=== PATIENT | female | born 2000 | race Hispanic/Latino ===

== ENCOUNTER 2019-04-17 18:59 | Emergency (ER) | payer OTHER, SELFPAY ==
[2019-04-17] MEDS ORDERED: TOBRAMYCIN SULF 0.3% OPTH OINT ONE (19:39)
--- NOTE | 2019-04-17 19:41 | ER ---
Nurse's Notes [facility] Name: Guillermina Carlson Age: 19 yrs Sex: Female : 2000 Arrival Date: 04/17/2019 Time: 19:01 Bed 7 Private MD: Unknown, Unknown Diagnosis: Conjunctivitis Presentation: 04/17 19:04 Presenting complaint: Patient states: "I popped an eye blood vessel like a week ago, aj1 yesterday my eye started hurting really bad and its all red right now" Patient reports pain to left eye. Patient has bruising under both eyes, states that she got hit by a swinging door. Sclera reddened to left eye. Patient denies any blurred vision or loss of vision in left eye. Transition of care: patient was not received from another setting of care. Onset of symptoms was 2018. Risk Assessment: Do you want to hurt yourself or someone else? Patient reports no desire to harm self or others. Initial Sepsis Screen: Does the patient meet any 2 criteria? No. Patient's initial sepsis screen is negative. Does the patient have a suspected source of infection? No. Patient's initial sepsis screen is negative. Care prior to arrival: None. 19:04 Method Of Arrival: Ambulatory aj1 19:04 Acuity: SHIRLEY 3 aj1 Triage Assessment: 19:06 General: Appears in no apparent distress. comfortable, Behavior is calm, cooperative, aj1 appropriate for age. Pain: Denies pain. EENT: Reports pain when she looks at the light with her left eye. Neuro: Level of Consciousness is awake, alert, obeys commands. Cardiovascular: Patient's skin is warm and dry. Respiratory: Airway is patent Respiratory effort is even, unlabored, Respiratory pattern is regular, symmetrical. 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 - Social history:: Smoking status: Patient/guardian denies using tobacco. - Ebola Screening: : Patient denies travel to an Ebola-affected area in the 21 days before illness onset. Screenin:17 Abuse screen: Denies threats or abuse. Nutritional screening: No deficits noted. ea Tuberculosis screening: No symptoms or risk factors identified. Fall Risk None identified. Assessment: 19:16 General: Appears in no apparent distress. Behavior is calm, cooperative, appropriate ea for age. Pain: Complains of pain in left eye. Neuro: Level of Consciousness is awake, alert, obeys commands, Oriented to person, place, time, situation. Cardiovascular: Patient's skin is warm and dry. Respiratory: Airway is patent Respiratory effort is even, unlabored, Respiratory pattern is regular, symmetrical. EENT: Sclera/Cornea are reddened in outer aspect of conjuctiva of left eye and inner aspect of conjunctiva of left eye. Derm: Bruising that is brown, on right lower eyelid and left lower eyelid. Musculoskeletal: Circulation, motion, and sensation intact. 19:47 Reassessment: Patient and/or family updated on plan of care and expected duration. Pain ea level reassessed. Patient is alert, oriented x 3, equal unlabored respirations, skin warm/dry/pink. Discharge instruction given to patient, verbalized the understanding of instruction. Pt left ED ambulatory, tolerating well. Vital Signs: 19:06 BP 123 / 71; Pulse 98; Resp 18; Temp 98.6; Pulse Ox 99% on R/A; Weight 63.5 kg (R); aj1 Height 5 ft. 2 in. (157.48 cm) (R); Pain 0/10; 19:06 Body Mass Index 25.61 (63.50 kg, 157.48 cm) aj1 ED Course: 19:01 Patient arrived in ED. as 19:01 Unknown, Unknown is Private Physician. as 19:06 Triage completed. aj1 19:06 Arm band placed on Patient placed in an exam room. aj1 19:08 Marcio Chance MD is Attending Physician. daniel 19:09 Leanna Bassett RN is Primary Nurse. ea 19:18 Patient has correct armband on for positive identification. Bed in low position. Call ea light in reach. Side rails up X2. 19:40 Jordy Fuller MD is Referral Physician. [facility] 19:46 No provider procedures requiring assistance completed. Patient did not have IV access ea during this emergency room visit. Administered Medications: 19:40 Drug: Tobramycin Ointment (0.3 %) 1 inches Route: Ophthalmic; Site: left eye; jose antonio 19:46 Follow up: Response: Medication administered at discharge. jose antonio Outcome: 19:40 Discharge ordered by . daniel 19:46 Discharged to home ambulatory. jose antonio 19:46 Condition: stable 19:46 Discharge instructions given to patient, Instructed on discharge instructions, follow up and referral plans. medication usage, Demonstrated understanding of instructions, follow-up care, medications, Prescriptions given X 2. 19:47 Patient left the ED. ea Signatures: Teresa Aldrich, RN RN aj1 Marcio Chance MD MD cha Martinez, Amelia as Antunez, Elena, RN RN jose antonio
--- NOTE | 2019-04-17 19:41 | EDPHYS ---
Physician Documentation [facility] Name: Guillermina Carlson Age: 19 yrs Sex: Female : 2000 Arrival Date: 04/17/2019 Time: 19:01 Bed 7 Private MD: Unknown, Unknown ED Physician Marcio Chance HPI: 04/17 19:37 This 19 yrs old Female presents to ER via Ambulatory with complaints of Eye daniel Problem. 19:37 The patient is experiencing redness, The patient sustained. Onset: The symptoms/episode daniel began/occurred 2 day(s) ago. Duration: the symptoms are continuous. Aggravated by blinking, closing eye, light, Alleviated by nothing. Associated signs and symptoms: Pertinent positives: None. Pertinent negatives: None. Patient does not utilize any form of vision correction. Severity of symptoms: At their worst the symptoms were mild. The patient has not experienced similar symptoms in the past. 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 - Social history:: Smoking status: Patient/guardian denies using tobacco. - Ebola Screening: : Patient denies travel to an Ebola-affected area in the 21 days before illness onset. ROS: 19:38 Constitutional: Negative for fever, chills, and weight loss, ENT: Negative for injury, daniel pain, and discharge, Neck: Negative for injury, pain, and swelling, Cardiovascular: Negative for chest pain, palpitations, and edema, Respiratory: Negative for shortness of breath, cough, wheezing, and pleuritic chest pain, Abdomen/GI: Negative for abdominal pain, nausea, vomiting, diarrhea, and constipation, Back: Negative for injury and pain, : Negative for injury, bleeding, discharge, and swelling, MS/Extremity: Negative for injury and deformity, Skin: Negative for injury, rash, and discoloration, Neuro: Negative for headache, weakness, numbness, tingling, and seizure. 19:38 Eyes: Positive for itching, pain, of the outer aspect of conjuctiva of left eye and inner aspect of conjunctiva of left eye. Exam: 19:38 Constitutional: This is a well developed, well nourished patient who is awake, alert, daniel and in no acute distress. Head/Face: Normocephalic, atraumatic. ENT: Nares patent. No nasal discharge, no septal abnormalities noted. Tympanic membranes are normal and external auditory canals are clear. Oropharynx with no redness, swelling, or masses, exudates, or evidence of obstruction, uvula midline. Mucous membranes moist. Neck: Trachea midline, no thyromegaly or masses palpated, and no cervical lymphadenopathy. Supple, full range of motion without nuchal rigidity, or vertebral point tenderness. No Meningismus. Chest/axilla: Normal chest wall appearance and motion. Nontender with no deformity. No lesions are appreciated. Cardiovascular: Regular rate and rhythm with a normal S1 and S2. No gallops, murmurs, or rubs. Normal PMI, no JVD. No pulse deficits. Respiratory: Lungs have equal breath sounds bilaterally, clear to auscultation and percussion. No rales, rhonchi or wheezes noted. No increased work of breathing, no retractions or nasal flaring. Abdomen/GI: Soft, non-tender, with normal bowel sounds. No distension or tympany. No guarding or rebound. No evidence of tenderness throughout. Back: No spinal tenderness. No costovertebral tenderness. Full range of motion. Skin: Warm, dry with normal turgor. Normal color with no rashes, no lesions, and no evidence of cellulitis. MS/ Extremity: Pulses equal, no cyanosis. Neurovascular intact. Full, normal range of motion. Neuro: Awake and alert, GCS 15, oriented to person, place, time, and situation. Cranial nerves II-XII grossly intact. Motor strength 5/5 in all extremities. Sensory grossly intact. Cerebellar exam normal. Normal gait. Psych: Awake, alert, with orientation to person, place and time. Behavior, mood, and affect are within normal limits. 19:38 Eyes: Periorbital structures: ecchymosis, that is mild, bilaterally, Pupils: no acute changes, equal, round, and reactive to light and accomodation, Extraocular movements: intact throughout, Conjunctiva: injected, Corneas: are normal, no acute changes, Sclera: no appreciated abnormality, Anterior chamber: normal, no acute changes, Lids and lashes: appear normal, no acute changes, Nystagmus: is not appreciated. Vital Signs: 19:06 BP 123 / 71; Pulse 98; Resp 18; Temp 98.6; Pulse Ox 99% on R/A; Weight 63.5 kg (R); aj1 Height 5 ft. 2 in. (157.48 cm) (R); Pain 0/10; 19:06 Body Mass Index 25.61 (63.50 kg, 157.48 cm) aj1 MDM: 19:08 Patient medically screened. [place] 19:40 Data reviewed: vital signs, nurses notes. [place] Administered Medications: 19:40 Drug: Tobramycin Ointment (0.3 %) 1 inches Route: Ophthalmic; Site: left eye; ea 19:46 Follow up: Response: Medication administered at discharge. ea Disposition: 04/17/19 19:40 Discharged to Home. Impression: Conjunctivitis. - Condition is Stable. - Discharge Instructions: Allergic Conjunctivitis, Adult, Bacterial Conjunctivitis, Bacterial Conjunctivitis, [id number], Allergic Conjunctivitis, [id number]. - Prescriptions for Tobrex 0.3 % Ophthalmic ointment - apply 1 inch ribbon by OPHTHALMIC route 2-3 times daily; 3.5 gram. Claritin 10 mg Oral Tablet - take 1 tablet by ORAL route once daily As needed; 30 tablet. - Medication Reconciliation Form, Thank You Letter, Antibiotic Education, Prescription Opioid Use, Work release form form. - Follow up: Private Physician; When: 2 - 3 days; Reason: Recheck today's complaints, Continuance of care, Re-evaluation by your physician. Follow up: Jordy Fuller MD; When: 2 - 3 days; Reason: Recheck today's complaints, Re-evaluation by your physician. - Problem is new. - Symptoms have improved. Signatures: Teresa Aldrich RN RN aj1 Marcio Chance MD MD cha Antunez, Elena, RN RN ea Corrections: (The following items were deleted from the chart) 19:47 19:40 04/17/2019 19:40 Discharged to Home. Impression: Conjunctivitis. Condition is ea Stable. Forms are Work release form, Medication Reconciliation Form, Thank You Letter, Antibiotic Education, Prescription Opioid Use. Follow up: Private Physician; When: 2 - 3 days; Reason: Recheck today's complaints, Continuance of care, Re-evaluation by your physician. Follow up: Jordy Fuller; When: 2 - 3 days; Reason: Recheck today's complaints, Re-evaluation by your physician. Problem is new. Symptoms have improved. daniel
[2019-04-17 20:01] VITALS: BP 123/71; TEMP 98.6; O2SAT 99
== END 2019-04-17 19:47 | disposition home or self-care (01) ==
LOC: ER 18:59
DX: H10.9 Unspecified conjunctivitis (principal)
CPT/HCPCS: 99283

== ENCOUNTER 2020-07-21 12:18 | Emergency (ER) | payer SELFPAY ==
--- OUTSIDE RECORDS SUMMARY | 2020-07-21 12:21 | XMS REPORT | Continuity of Care Document ---
:2000 Author Organization [facility] t Address [address] [place] [address] Care Team Providers Name Role Phone Visit, Nurse Attending Clinician Unavailable Malena Akhtar Attending Clinician Problems This patient has no known problems. Allergies, Adverse Reactions, Alerts This patient has no known allergies or adverse reactions. Medications This patient has no known medications. Procedures This patient has no known procedures. 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
--- NOTE | 2020-07-21 14:01 | EDPHYS ---
Physician Documentation [facility] Name: Guillermina Carlson Age: 20 yrs Sex: Female : 2000 Arrival Date: 07/21/2020 Time: 12:23 Bed 24 Private MD: ED Physician Marcio Chance HPI: 07/21 14:19 This 20 yrs old Female presents to ER via Ambulatory with complaints of kb Itching all over. 14:19 The patient's rash thought to be caused by an unknown cause. The rash is located on the kb body diffusely. The rash can be described as "bug bites". Onset: The symptoms/episode began/occurred 1 week(s) ago. Associated signs and symptoms: Pertinent positives: itching, Pertinent negatives: fever, Pain. Severity of symptoms: At their worst the symptoms were moderate in the emergency department the symptoms are unchanged. The patient has not experienced similar symptoms in the past. The patient has not recently seen a physician. 14:20 Pt reports she has had itching all over body for a week. Now mother and child have kb itching as well. States she has noticed what looks like tiny bug bites. Historical: - Allergies: 12:49 No Known Allergies; ll1 - PMHx: 12:49 None; ll1 - PSHx: 12:49 None; ll1 - Immunization history:: Flu vaccine is not up to date. - Social history:: Smoking status: Patient denies any tobacco usage or history of. ROS: 14:17 Constitutional: Negative for fever, chills, and weight loss, Neuro: Negative for kb headache, weakness, numbness, tingling, and seizure. 14:17 Skin: Positive for rash. Exam: 14:18 Constitutional: This is a well developed, well nourished patient who is awake, alert, kb and in no acute distress. Head/Face: Normocephalic, atraumatic. Skin: Warm, dry with normal turgor. Normal color with no rashes, no lesions, and no evidence of cellulitis. MS/ Extremity: Pulses equal, no cyanosis. Neurovascular intact. Full, normal range of motion. Neuro: Awake and alert, GCS 15, oriented to person, place, time, and situation. Cranial nerves II-XII grossly intact. Moves all extremities. Sensory grossly intact. Cerebellar exam normal. Normal gait. Vital Signs: 12:47 BP 112 / 61; Pulse 85; Resp 16; Temp 97.4; Pulse Ox 100% ; Weight 65.77 kg; Height 5 ll1 ft. 2 in. (157.48 cm); Pain 0/10; 14:17 BP 115 / 70; Pulse 81; Resp 18; Temp 97.9; Pulse Ox 99% on R/A; ph 12:47 Body Mass Index 26.52 (65.77 kg, 157.48 cm) ll1 MDM: 13:53 Patient medically screened. kb 14:16 Data reviewed: vital signs, nurses notes. Data interpreted: Pulse oximetry: on room air kb is 100 %. Interpretation: normal. Counseling: I had a detailed discussion with the patient and/or guardian regarding: the historical points, exam findings, and any diagnostic results supporting the discharge/admit diagnosis, the need for outpatient follow up, a family practitioner, to return to the emergency department if symptoms worsen or persist or if there are any questions or concerns that arise at home. Administered Medications: No medications were administered Disposition: 07/22 06:57 Co-signature as Attending Physician, Marcio Chance MD I agree with the assessment and daniel plan of care. Disposition: 07/21/20 14:01 Discharged to Home. Impression: Scabies. - Condition is Stable. - Discharge Instructions: Scabies, Adult. - Prescriptions for Elimite 5 % Topical Cream - apply 1 application by TOPICAL route one time Wash after 12 hours.; 60 gram. - Medication Reconciliation Form, Thank You Letter, Antibiotic Education, Prescription Opioid Use form. - Follow up: Emergency Department; When: As needed; Reason: Worsening of condition. Follow up: Private Physician; When: 2 - 3 days; Reason: Recheck today's complaints, Continuance of care, Re-evaluation by your physician. Signatures: Genesis Lawson, DEIDRE-C DEIDRE-Marcio Gore MD MD cha Hall, Patricia, RN RN Jose Araya RN RN ll1 Corrections: (The following items were deleted from the chart) 07/21 14:20 14:01 07/21/2020 14:01 Discharged to Home. Impression: Scabies. Condition is Stable. ph Forms are Medication Reconciliation Form, Thank You Letter, Antibiotic Education, Prescription Opioid Use. Follow up: Emergency Department; When: As needed; Reason: Worsening of condition. Follow up: Private Physician; When: 2 - 3 days; Reason: Recheck today's complaints, Continuance of care, Re-evaluation by your physician. kb
--- NOTE | 2020-07-21 14:01 | ER ---
Nurse's Notes [facility] Name: Guillermina Carlson Age: 20 yrs Sex: Female : 2000 Arrival Date: 07/21/2020 Time: 12:23 Bed 24 Private MD: Diagnosis: Scabies Presentation: 07/21 12:47 Chief complaint: Patient states: Itching to body for 1 week. States her mom and son now ll1 have itching also. No new meds/foods. No fever. Worried about "mites.". Coronavirus screen: Client denies travel out of the [place] in the last 14 days. At this time, the client does not indicate any symptoms associated with coronavirus-19. Ebola Screen: Patient denies travel to an Ebola-affected area in the 21 days before illness onset. Initial Sepsis Screen: Does the patient meet any 2 criteria? No. Patient's initial sepsis screen is negative. Does the patient have a suspected source of infection? Yes: Skin breakdown/wound. Risk Assessment: Do you want to hurt yourself or someone else? Patient reports no desire to harm self or others. Onset of symptoms was July 15, 2020. 12:47 Method Of Arrival: Ambulatory ll1 12:47 Acuity: SHIRLEY 4 ll1 Historical: - Allergies: 12:49 No Known Allergies; ll1 - PMHx: 12:49 None; ll1 - PSHx: 12:49 None; ll1 - Immunization history:: Flu vaccine is not up to date. - Social history:: Smoking status: Patient denies any tobacco usage or history of. Screenin:17 Abuse screen: Denies threats or abuse. Denies injuries from another. Nutritional ph screening: No deficits noted. Tuberculosis screening: No symptoms or risk factors identified. Fall Risk None identified. Assessment: 13:57 Reassessment: Patient appears in no apparent distress at this time. No changes from dm5 previously documented assessment. Pain: Denies pain. 14:16 General: Appears in no apparent distress. comfortable, slender, well groomed, Behavior ph is calm, cooperative, appropriate for age. Pain: Denies pain. Neuro: Level of Consciousness is awake, alert, obeys commands, Oriented to person, place, time, situation. Respiratory: Airway is patent Respiratory effort is even, unlabored. Derm: Skin is healthy with good turgor, Skin is pink, warm \\T\\ dry. Reports itching. Musculoskeletal: Circulation, motion, and sensation intact. Range of motion: intact in all extremities. Vital Signs: 12:47 BP 112 / 61; Pulse 85; Resp 16; Temp 97.4; Pulse Ox 100% ; Weight 65.77 kg; Height 5 ll1 ft. 2 in. (157.48 cm); Pain 0/10; 14:17 BP 115 / 70; Pulse 81; Resp 18; Temp 97.9; Pulse Ox 99% on R/A; ph 12:47 Body Mass Index 26.52 (65.77 kg, 157.48 cm) ll1 ED Course: 12:23 Patient arrived in ED. mr 12:49 Triage completed. ll1 12:49 Arm band placed on. ll1 13:53 [facility]C [facility]. kb 13:53 Marcio Chance MD is Attending Physician. kb 13:57 Michelle Ruggiero, RN is Primary Nurse. dm5 14:17 Patient has correct armband on for positive identification. Bed in low position. Call ph light in reach. Side rails up X 1. Pulse ox on. NIBP on. Door closed. Noise minimized. Warm blanket given. 14:17 No provider procedures requiring assistance completed. Patient did not have IV access ph during this emergency room visit. Administered Medications: No medications were administered Outcome: 14:01 Discharge ordered by . kb 14:18 Discharged to home ambulatory. ph 14:18 Condition: good 14:18 Discharge instructions given to patient, Instructed on discharge instructions, follow up and referral plans. medication usage, Demonstrated understanding of instructions, follow-up care, medications, Prescriptions given X 1. 14:20 Patient left the ED. ph Signatures: Genesis Lawson FNP-C FNP-Michelle Ansari, RN RN hector Sravanthi Marquis Patricia, RN RN ph Lewis, Lynsay, RN RN ll1 Corrections: (The following items were deleted from the chart) 12:51 12:47 Chief complaint: Patient states: Itching to body for 1 week. States her mom and ll1 son now have itching also. No new meds/foods. No fever. ll1
[2020-07-22 12:13] VITALS: BP 115/70; TEMP 97.9; O2SAT 99
== END 2020-07-21 14:20 | disposition home or self-care (01) ==
LOC: ER 12:18
DX: B86 Scabies (principal)
CPT/HCPCS: 99283

== ENCOUNTER 2020-07-25 05:36 | Emergency (ER) | payer SELFPAY ==
--- OUTSIDE RECORDS SUMMARY | 2020-07-25 05:39 | XMS REPORT | Continuity of Care Document ---
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
--- NOTE | 2020-07-25 06:37 | ER ---
Nurse's Notes [facility] Name: Guillermina Carlson Age: 20 yrs Sex: Female : 2000 Arrival Date: 07/25/2020 Time: 05:38 Bed 5 Private MD: Diagnosis: Dermatitis, unspecified;Xerosis cutis Presentation: 07/25 05:50 Chief complaint: Patient states: was diagnosed with scabies 2 days ago, thinks the medicine is making her itching worse or it's just not working. Coronavirus screen: At this time, the client does not indicate any symptoms associated with coronavirus-19. Ebola Screen: Patient negative for fever greater than or equal to 101.5 degrees Fahrenheit, and additional compatible Ebola Virus Disease symptoms Patient denies exposure to infectious person. Patient denies travel to an Ebola-affected area in the 21 days before illness onset. No symptoms or risks identified at this time. Onset of symptoms was July 25, 2020. 05:50 Method Of Arrival: Ambulatory iw 05:50 Acuity: SHIRLEY 5 iw 05:51 Initial Sepsis Screen: Does the patient meet any 2 criteria? No. Patient's initial iw sepsis screen is negative. Does the patient have a suspected source of infection? No. Patient's initial sepsis screen is negative. Risk Assessment: Do you want to hurt yourself or someone else? Patient reports no desire to harm self or others. 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 - Social history:: Smoking status: Patient denies any tobacco usage or history of. - Family history:: not pertinent. Screenin:52 Abuse screen: Denies threats or abuse. Denies injuries from another. Nutritional wh screening: No deficits noted. Tuberculosis screening: No symptoms or risk factors identified. Fall Risk None identified. Assessment: 05:51 General: Appears in no apparent distress. Behavior is calm, cooperative, appropriate wh for age. Pain: Denies pain. Neuro: Level of Consciousness is awake, alert, obeys commands, Oriented to person, place, time, situation, Appropriate for age. Cardiovascular: Heart tones S1 S2. Respiratory: Airway is patent Respiratory effort is even, unlabored, Respiratory pattern is regular, symmetrical, Breath sounds are clear bilaterally. GI: Abdomen is flat, non-distended. : No signs and/or symptoms were reported regarding the genitourinary system. EENT: No signs and/or symptoms were reported regarding the EENT system. Derm: Skin is intact, is healthy with good turgor, Skin is pink, warm \T\ dry. normal, Reports itching. Musculoskeletal: Circulation, motion, and sensation intact. Vital Signs: 05:49 BP 120 / 64; Pulse 70; Resp 18; Temp 98; Pulse Ox 100% ; Weight 65.77 kg; Height 5 ft. rv 2 in. (157.48 cm); 05:49 Body Mass Index 26.52 (65.77 kg, 157.48 cm) ED Course: 05:38 Patient arrived in ED. cl3 05:39 José Miguel Call, RN is Primary Nurse. 05:51 Triage completed. 05:52 Arm band placed on. 05:52 Patient has correct armband on for positive identification. Bed in low position. Call light in reach. Side rails up X 1. Pulse ox on. NIBP on. 06:10 Marcio Chance MD is Attending Physician. [facility] 06:33 Jeffrey White MD is Referral Physician. [facility] 06:50 No provider procedures requiring assistance completed. Patient did not have IV access during this emergency room visit. Administered Medications: 06:35 Drug: Atarax 25 mg Route: PO; 06:44 Follow up: Response: No adverse reaction Outcome: 06:36 Discharge ordered by . [facility] 06:50 Discharged to home ambulatory. 06:50 Condition: stable 06:50 Discharge instructions given to patient, Instructed on discharge instructions, follow up and referral plans. medication usage, POC Demonstrated understanding of instructions, follow-up care, medications, POC Prescriptions given X 3. 06:50 Patient left the ED. 06:59 Patient left the ED. Signatures: Marcio Chance MD MD cha Williams, Irene, RN RN José Miguel Call RN RN Manjit Mcclendon RN RN Angelita Butler cl3
--- NOTE | 2020-07-25 06:37 | EDPHYS ---
Physician Documentation [facility] Name: Guillermina Carlson Age: 20 yrs Sex: Female : 2000 Arrival Date: 07/25/2020 Time: 05:38 Bed 5 Private MD: ED Physician Marcio Chance HPI: 07/25 06:27 This 20 yrs old Female presents to ER via Ambulatory with complaints of daniel Itching. 06:27 The patient's rash thought to be caused by scabies, Dermatitis. The rash is located on daniel the body diffusely. The rash can be described as erythematous, scattered, not burrowing. Onset: The symptoms/episode began/occurred 5 day(s) ago. Associated signs and symptoms: Pertinent positives: burning sensation, itching. Severity of symptoms: At their worst the symptoms were mild in the emergency department the symptoms are unchanged. The patient has not experienced similar symptoms in the past. 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 - Social history:: Smoking status: Patient denies any tobacco usage or history of. - Family history:: not pertinent. ROS: 06:27 Constitutional: Negative for fever, chills, and weight loss, Eyes: Negative for injury, daniel pain, redness, and discharge, ENT: Negative for injury, pain, and discharge, Neck: Negative for injury, pain, and swelling, Cardiovascular: Negative for chest pain, palpitations, and edema, Respiratory: Negative for shortness of breath, cough, wheezing, and pleuritic chest pain, Abdomen/GI: Negative for abdominal pain, nausea, vomiting, diarrhea, and constipation, Back: Negative for injury and pain, : Negative for injury, bleeding, discharge, and swelling, MS/Extremity: Negative for injury and deformity, Neuro: Negative for headache, weakness, numbness, tingling, and seizure, Psych: Negative for depression, anxiety, suicide ideation, homicidal ideation, and hallucinations, Allergy/Immunology: Negative for hives, rash, and allergies, Endocrine: Negative for neck swelling, polydipsia, polyuria, polyphagia, and marked weight changes, Hematologic/Lymphatic: Negative for swollen nodes, abnormal bleeding, and unusual bruising. 06:27 Skin: Positive for rash. Exam: 06:30 Constitutional: This is a well developed, well nourished patient who is awake, alert, daniel and in no acute distress. Head/Face: Normocephalic, atraumatic. Eyes: Pupils equal round and reactive to light, extra-ocular motions intact. Lids and lashes normal. Conjunctiva and sclera are non-icteric and not injected. Cornea within normal limits. Periorbital areas with no swelling, redness, or edema. ENT: Nares patent. No nasal discharge, no septal abnormalities noted. Tympanic membranes are normal and external auditory canals are clear. Oropharynx with no redness, swelling, or masses, exudates, or evidence of obstruction, uvula midline. Mucous membranes moist. Neck: Trachea midline, no thyromegaly or masses palpated, and no cervical lymphadenopathy. Supple, full range of motion without nuchal rigidity, or vertebral point tenderness. No Meningismus. Chest/axilla: Normal chest wall appearance and motion. Nontender with no deformity. No lesions are appreciated. Cardiovascular: Regular rate and rhythm with a normal S1 and S2. No gallops, murmurs, or rubs. Normal PMI, no JVD. No pulse deficits. Respiratory: Lungs have equal breath sounds bilaterally, clear to auscultation and percussion. No rales, rhonchi or wheezes noted. No increased work of breathing, no retractions or nasal flaring. Abdomen/GI: Soft, non-tender, with normal bowel sounds. No distension or tympany. No guarding or rebound. No evidence of tenderness throughout. Back: No spinal tenderness. No costovertebral tenderness. Full range of motion. Skin: Warm, dry with normal turgor. Normal color with no rashes, no lesions, and no evidence of cellulitis. MS/ Extremity: Pulses equal, no cyanosis. Neurovascular intact. Full, normal range of motion. Neuro: Awake and alert, GCS 15, oriented to person, place, time, and situation. Cranial nerves II-XII grossly intact. Motor strength 5/5 in all extremities. Sensory grossly intact. Cerebellar exam normal. Normal gait. Psych: Awake, alert, with orientation to person, place and time. Behavior, mood, and affect are within normal limits. Vital Signs: 05:49 BP 120 / 64; Pulse 70; Resp 18; Temp 98; Pulse Ox 100% ; Weight 65.77 kg; Height 5 ft. rv 2 in. (157.48 cm); 05:49 Body Mass Index 26.52 (65.77 kg, 157.48 cm) rv MDM: 06:10 Patient medically screened. [facility] 06:54 Differential diagnosis: impetigo, varicella. Data reviewed: vital signs, nurses notes. 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 Counseling: I had a detailed discussion with the patient and/or guardian regarding: the historical points, exam findings, and any diagnostic results supporting the discharge/admit diagnosis, the need for outpatient follow up, for definitive care, a ice guard skating rink, a family practitioner. Administered Medications: 06:35 Drug: Atarax 25 mg Route: PO; 06:44 Follow up: Response: No adverse reaction Disposition: 07/25/20 06:36 Discharged to Home. Impression: Dermatitis, unspecified, Xerosis cutis. - Condition is Stable. - Discharge Instructions: Contact Dermatitis, Rash, Rash, [id number]. - Prescriptions for Aquaphor - Apply to affected area 1 application by TOPICAL route 3 times per day; 90 gram. Hydroxyzine HCl 25 mg Oral Tablet - take 1 tablet by ORAL route every 6 hours As needed; 30 tablet. Pepcid 20 mg Oral Tablet - take 1 tablet by ORAL route every 12 hours for 10 days; 20 tablet. - Medication Reconciliation Form, Thank You Letter, Antibiotic Education, Prescription Opioid Use, Work release form form. - Follow up: Private Physician; When: 2 - 3 days; Reason: Recheck today's complaints, Continuance of care, Re-evaluation by your physician. Follow up: Jeffrey White MD; When: 2 - 3 days; Reason: Recheck today's complaints, Continuance of care, Re-evaluation by your physician. - Problem is new. - Symptoms have improved. Signatures: Marcio Chance MD MD cha Habalo, Winsy, RN RN Manjit Mcclendon RN RN rv Corrections: (The following items were deleted from the chart) 06:50 06:36 07/25/2020 06:36 Discharged to Home. Impression: Dermatitis, unspecified; Xerosis wh cutis. Condition is Stable. Forms are Medication Reconciliation Form, Thank You Letter, Antibiotic Education, Prescription Opioid Use. Follow up: Private Physician; When: 2 - 3 days; Reason: Recheck today's complaints, Continuance of care, Re-evaluation by your physician. Follow up: Jeffrey White; When: 2 - 3 days; Reason: Recheck today's complaints, Continuance of care, Re-evaluation by your physician. Problem is new. Symptoms have improved. [facility] 06:59 06:50 07/25/2020 06:36 Discharged to Home. Impression: Dermatitis, unspecified; Xerosis wh cutis. Condition is Stable. Discharge Instructions: Contact Dermatitis, Rash, Rash, [id number]. Prescriptions for Aquaphor - Apply to affected area 1 application by TOPICAL route 3 times per day; 90 gram, Hydroxyzine HCl 25 mg Oral Tablet - take 1 tablet by ORAL route every 6 hours As needed; 30 tablet, Pepcid 20 mg Oral Tablet - take 1 tablet by ORAL route every 12 hours for 10 days; 20 tablet. and Forms are Medication Reconciliation Form, Thank You Letter, Antibiotic Education, Prescription Opioid Use, Work release form. Follow up: Private Physician; When: 2 - 3 days; Reason: Recheck today's complaints, Continuance of care, Re-evaluation by your physician. Follow up: Jeffrey White; When: 2 - 3 days; Reason: Recheck today's complaints, Continuance of care, Re-evaluation by your physician. Problem is new. Symptoms have improved. wh
[2020-07-25] MEDS ORDERED: hydrOXYzine HCL 25 MG TAB ONE (06:51)
[2020-07-25 06:56] VITALS: BP 120/64; TEMP 98; O2SAT 100
== END 2020-07-25 06:59 | disposition home or self-care (01) ==
LOC: ER 05:36
DX: L85.3 Xerosis cutis (principal)
CPT/HCPCS: 99283

== ENCOUNTER 2022-04-09 12:59 | Emergency (ER) | payer OTHER, SELFPAY ==
--- OUTSIDE RECORDS SUMMARY | 2022-04-09 13:03 | XMS REPORT | Continuity of Care Document ---
:2000 Author Organization [facility] t Address [address] [place] [address] Care Team Providers Name Role Phone CHELO CAREY Primary Care Physician Unavailable CHELO CRAEY Attending Clinician Unavailable MEME TREJO Attending Clinician Unavailable YVETTE LEIVA Attending Clinician Unavailable Trimester, [facility] Res-1st Attending Clinician Unavailable Yvette Leiva MD Attending Clinician [facility]ending [facility] [phone] NATALIYA SPRINGER Attending Clinician Unavailable Nataliya Springer DO Attending Clinician Bryan BAUER Attending Clinician Unavailable Bryan Jansen Attending Clinician Doctor Unassigned, [place] Attending Clinician Unavailable JENNI OSEI Attending Clinician Unavailable Jenni Osei DO Attending Clinician Shayne Mitchell MD Attending Clinician Allen Villalta MD Attending Clinician SHAYNE MITCHELL Attending Clinician Unavailable Chelo Olivier Attending Clinician Lab, [facility] Attending Clinician Unavailable Ultrasound, [facility] Attending Clinician Unavailable Hernan Mckeon MD Attending Clinician Trey Laird DO Attending Clinician EMIYL SPRINGER Attending Clinician Unavailable Visit, [facility] Nurse Attending Clinician Unavailable Emily Valdovinos Attending Clinician RIK JUDD Attending Clinician Unavailable Louie REYES, Luz Marina Lantigua Attending Clinician NATALIYA SPRINGER Admitting Clinician Unavailable Luz Marina Palma MD Admitting Clinician Payers Payer Name Policy Type Policy Number Effective Date Expiration Date Critical access hospital [id number] 2020 CHOICE MEDICAID 00:00:00 [place] [id number] 2020 00:00:00 MEDICAID PENDING PENDING 2020 00:00:00 Problems Condition Condition Condition Status Onset Resolution Last Treating Co mments Source Name Details Category Date Date Treatment Clinician Date Herpes Herpes Disease Active Overview: Univer s infection infection 10-03 Formattin i ty of in in 00:00: g of this [place] 00 note Medi deya might be Branch different from the original. Suppressi on at 36 weeks Susceptibl Susceptibl Disease Active Overview : Univers e to e to 503 Formatt[address] ity of varicella varicella 00:00: [place] of this [place] (non-immun (non-immun 00 note Me dical e), e), might be Branch currently currently different from the original. Address pp Multiparit Multiparit Disease Active U nivers y y 4-29 ity of 00:00: [place] [address] Medical Branch History of History of Disease Active U nivers miscarriag miscarriag 4-29 it y of e e 00:00: [place] [facility] Disease Active Uni vers of unknown of unknown 4-29 it y of anatomic anatomic 00:00: [place] location location 00 Medica l Branch Obesity in Obesity in Disease Active 2018-05 U nivers 2-06 ity of 00:00: [place] [address] Medical Branch Anemia Anemia Disease Active Univers associated associated 9-19 it y of with acute with acute [place] blood loss blood loss 00 Me dical Branch Rubella Rubella Disease Active Overview: Univ ers non-immune non-immune 06-09 Formattin ity of status, status, 00:00: g of this [place] antepartum antepartum 00 note Me dical might be Branch different from the original. Address pp Generalize Generalize Disease Active U nivers d anxiety d anxiety 01-07 ity of disorder disorder 00:00: [address] Allergies, Adverse Reactions, Alerts Allergy Allergy Status Severity Reaction(s) Onset Inactive Treating Comm ents Source Name Type Date Date Clinician NO KNOWN Drug Active Univers ALLERGIE Class ity of S [facility] Social History Social Habit Start Date Stop Date Quantity Comments Source ASSERTION 2021-08-24 University of 00:00:00 [place] [facility] History SDOH University o f Alcohol Frequency [facility] edical Branch History SDWV University o f Alcohol Std [place] Medical Drinks Branch History SDWV University o f Alcohol Binge [place] Medic al [place] Alcohol intake 2021-11-03 2021-11-03 Current drinker of Un iversity of 00:00:00 00:00:00 alcohol (finding) [facility] edical [place] Exposure to 2021-10-21 2021-10-31 Not sure University of SARS-CoV-2 00:00:00 09:14:00 [facility] (event) Branch Alcohol Comment 2021-08-22 2021-08-22 social Universit y of 00:00:00 00:00:00 [facility] Tobacco Comment 2020-09-23 2020-09-23 quit 2 months ago- U niversity of 00:00:00 00:00:00 2-3 cigarrettes [place] Med ical few days Branch Tobacco use and 2018-06-08 2018-06-08 Never used Universit y of exposure 00:00:00 00:00:00 [facility] Branch History of 2018-04-14 Cigarette Smoker Universi ty of tobacco use 00:00:00 [facility] Sex Assigned At [birth year] Universit y of 00:00:00 00:00:00 [facility] Smoking Status Start Date Stop Date Source Former smoker 2018-06-08 00:00:00 2018-06-08 00:00:00 Universi ty of [facility] Medications Ordered Filled Start Stop Current Ordering Indication Dosage Frequency Signature Comments Components Source Medication Medication Date Date Medication? Clinician (SIG) Name Name proMETHazin Yes [id number] 25mg Take 1 Univers e 25 mg 5-27 tablet by ity of tablet 00:00: mouth [place] 00 every 6 Medical (six) Branch hours as needed for Nausea and Vomiting (N/V). Yes [id number] 1{tbl} Take 1 U nivers multivitami 4-29 tablet by ity of n ( 00:00: mouth [place] VITAMIN) 00 daily. Medical tablet Branch Immunizations Ordered Immunization Filled Immunization Date Status Commen ts Source Name Name Influenza Virus 2019-04-14 Completed Universit y of Vaccine Quad .5 mL 00:00:00 [facility] IM 6+ MO Branch MMR 2019-01-26 Completed University of 00:00:00 [facility] TDAP 2018-11-02 Completed University of 00:00:00 [facility] HPV9 2016-04-20 Completed University of 00:00:00 [facility] TDAP 2016-04-20 Completed University of 00:00:00 [facility] HPV 2014-12-19 Completed University of 00:00:00 [facility] MMR 2014-01-24 Completed University of 00:00:00 [facility] HEPATITIS A 2013-11-20 Completed University of 00:00:00 [facility] HPV 2013-11-20 Completed University of 00:00:00 [facility] Influenza Virus 2013-04-12 Completed Universit y of Vaccine 00:00:00 [facility] Influenza Virus 2011-09-01 Completed Universit y of Vaccine 00:00:00 [facility] HEPATITIS A 2010-09-25 Completed University of 00:00:00 [facility] Meningococcal 2010-09-25 Completed University of Vaccine 00:00:00 [facility] PPD (TB) 2010-01-14 Completed University of 00:00:00 [facility] Influenza Virus 2010-01-14 Completed Universit y of Vaccine 00:00:00 [facility] HEPATITIS A 2009-07-15 Completed University of 00:00:00 [facility] Varicella 2009-07-15 Completed University of (varivax)(chicken 00:00:00 [place] M edical pox) Branch H1n1 Vaccine 2009-03-29 Completed University o f 00:00:00 [facility] DTAP 2003-05-23 Completed University of 00:00:00 [facility] MMR 2003-05-23 Completed University of 00:00:00 [facility] Polio (IPV/OPV) 2003-05-23 Completed Universit y of 00:00:00 [facility] Branch DTAP 2001-07-25 Completed University of 00:00:00 [facility] HIB 4 Dose Schedule 2001-07-25 Completed Unive rsity of 00:00:00 [place] [facility] DTAP 2000-03-30 Completed University of 00:00:00 [facility] HIB 4 Dose Schedule 2000-03-30 Completed Unive rsity of 00:00:00 [facility] Branch Hep B, Adol or Pedi 2000-03-30 Completed Unive rsity of Dosage 00:00:00 [facility] Branch MMR 2000-03-30 Completed University of 00:00:00 [facility] Polio (IPV/OPV) 2000-03-30 Completed Universit y of 00:00:00 [facility] Varicella 2000-03-30 Completed University of (varivax)(chicken 00:00:00 [facility] edical pox) Branch DTAP 1999 Completed University of 00:00:00 [facility] HIB 4 Dose Schedule 1999 Completed Unive rsity of 00:00:00 [facility] Polio (IPV/OPV) 1999 Completed Universit y of 00:00:00 [facility] HIB 4 Dose Schedule 1999 Completed Unive rsity of 00:00:00 [facility] Polio (IPV/OPV) 1999 Completed Universit y of 00:00:00 [facility] DTAP 1999 Completed University of 00:00:00 [facility] Hep B, Adol or Pedi 1999 Completed Unive rsity of Dosage 00:00:00 [facility] Hep B, Adol or Pedi 1999 Completed Unive rsity of Dosage 00:00:00 [facility] Vital Signs Vital Name Observation Time Observation Value Comments Source Systolic blood 2021-11-03 14:03:00 110 mm[Hg] Univer sity of pressure [facility] Diastolic blood 2021-11-03 14:03:00 63 mm[Hg] Unive rsity of pressure [facility] Heart rate 2021-11-03 14:03:00 108 /min Universi ty of [facility] Body temperature 2021-11-03 14:03:00 36 Evy Univ ersity of [facility] Respiratory rate 2021-11-03 14:03:00 18 /min [facility] Body height 2021-11-03 14:03:00 157.5 cm [facility] Body weight 2021-11-03 14:03:00 76.658 kg [facility] BMI 2021-11-03 14:03:00 30.91 kg/m2 [facility] Procedures This patient has no known procedures. Encounters Start End Encounter Admission Attending Care Care Encounter Source Date/Time Date/Time Type Type Clinicians Facility Department ID 2021-12-24 2021-12-24 Outpatient R CHERRY, [facility] [id number] Univers 09:45:00 09:45:00 CHELO moseley o f [facility] 2021-11-12 2021-11-12 Outpatient R NEIL, [facility] [id number] Univers 13:00:00 13:00:00 MEME moseley o f [facility] 2021-11-07 2021-11-07 Outpatient P [facility] [id number] Univers 13:00:00 [facility] 2021-11-03 2021-11-03 [facility] [id number] Univers 08:45:00 10:55:43 [facility] 2021-11-03 2021-11-03 Routine Trimester, [facility] Res-1st UNIVERSIT [id number] Univers 08:45:00 10:55:43 Yvette Leiva [facility] [id number] ity of Visit CLINICS [id number] [place] [id number] [address] 2021-11-03 2021-11-03 Outpatient D[facility] [id number] Univers 08:45:00 08:45:00 [facility] 2021-10-31 2021-10-31 Routine Trimester, [facility] Res-1st UNIVERSIT [id number] Univers 09:00:00 09:15:00 Yvette Leiva Y HEALTH [id number] ity of Visit [facility] 4.2.7.2.[place] [id number] [facility] 113 Branch 2021-10-31 2021-10-31 Outpatient R MARYANNE [facility] [id number] Univers 09:00:00 09:00:00 [facility] 2021-10-29 2021-10-29 Outpatient R [facility] [id number] Univers 11:00:00 11:42:46 MEME moseley o f [facility] 2021-10-29 2021-10-29 Routine [facility] [id number] Univers 11:00:00 11:42:46 Meme Guy [facility]ESS HOST [id number] ity of Visit [facility] [id number] Reginald as MATERNAL [id number] [facility] & [address] 2021-10-27 2021-10-27 Emergency [facility] [id number] Univers 12:58:00 16:35:00 [facility] 2021-10-27 2021-10-27 Emergency [facility] [id number] Univers 12:58:00 16:35:00 Nataliya [facility] [id number] ity [facility] [id number] [place] [id number] [facility] [address] [place] 2021-10-27 2021-10-27 Emergency X [facility] [id number] Univers 12:58:00 16:35:00 [facility] 2021-10-27 2021-10-27 Telephone [facility] [id number] Univers 00:00:00 00:00:00 Meme Guy HOSTESS HOST [id number] ity of [facility] [id number] Reginald as MATERNAL [id number] [facility] & CHILD [address] [place] [address] 2021-10-10 2021-10-10 Outpatient R [facility] [id number] Univers 14:45:00 14:45:00 MEME highy o f [facility] 2021-10-10 2021-10-10 Outpatient R AKINSIPE, [facility] [id number] Univers 14:45:00 14:45:00 MEME ity o f [facility] 2021-10-09 2021-10-09 Outpatient R AKINSIPE, [facility] [id number] Univers 13:45:00 13:45:00 MEME highy o [facility] 2021-10-03 2021-10-03 Routine Akinsipe, [facility] [id number] Univers 16:00:00 16:15:00 Meme C HOSTESS HOST [id number] ity of Visit [facility] [id number] Reginald as MATERNAL [id number] [facility] ical & CHILD [address] [place] [address] 2021-10-03 2021-10-03 Outpatient R AKINSIPE, [facility] [id number] Univers 16:00:00 16:00:00 MEME moseley o [facility] 2021-10-03 2021-10-03 Outpatient R AKINSIPE, [facility] [id number] Univers 16:00:00 16:00:00 MEME highy o [facility] 2021-09-09 2021-09-10 Emergency X JUANCARLOS, K [facility] ERT [id number] Univers 23:48:00 01:57:00 ity of [facility] 2021-09-09 2021-09-10 Emergency Juancarlos, K [facility] [id number] Univers 23:48:00 01:57:00 [facility] [id number] i ty of [place] [id number] [place] [facility] [id number] [address] 2021-09-05 2021-09-05 Initial Akinsipe, [facility] [id number] Univers 14:15:00 15:20:42 Meme C HOSTESS HOST [id number] ity of Visit [facility] [id number] Reginald as MATERNAL [id number] [facility] ical & CHILD [address] [place] [address] 2021-09-05 2021-09-05 Outpatient R AKINSIPE, [facility] [id number] Univers 14:15:00 15:20:42 MEME ity o f [facility] 2021-09-05 2021-09-05 Outpatient R AKINSIPE, [facility] [id number] Univers 14:15:00 14:15:00 MEME ity o f [facility] 2021-09-05 2021-09-05 Outpatient R AKINSIPE, [facility] [id number] Univers 13:45:00 14:11:27 MEME ity o f [facility] 2021-09-04 2021-09-04 Telephone [facility] [id number] Univers 00:00:00 00:00:00 Meme C HOSTESS HOST [id number] ity of REGIONAL [id number] Reginald as MATERNAL [id number] [facility] CHILD [address] [place] [address] 2021-08-25 2021-08-25 [facility] 1.2.840.114 [id number] Univers 00:00:00 00:00:00 Meme C HOSTESS HOST [id number] ity of REGIONAL [id number] Reginald as MATERNAL [id number] [facility] & CHILD [address] [place] [address] 2021-08-22 2021-08-22 Office [facility] [id number] Univers 08:00:00 09:01:20 Visit Meme C HOSTESS HOST [id number] ity of REGIONAL 4.2.7.2.686 Reginald as MATERNAL [id number] [facility] & CHILD [address] [place] [address] 2021-08-22 2021-08-22 Outpatient R AKINSIPE, [facility] [id number] Univers 08:00:00 09:01:20 MEME ity o f [facility] 2021-08-22 2021-08-22 Outpatient R AKINSIPE, [facility] [id number] Univers 08:00:00 08:00:00 MEME highy o f [facility] 2021-08-22 2021-08-22 Orders Doctor JOANNE 1.2.840.114 [id number] Univers 00:00:00 00:00:00 Only Unassigned, GIANNI 350.1.13.10 ity of [place] [facility] 4.2.7.2.686 Reginald as [id number] [facility] [address] [place] 2021-08-22 2021-08-22 Letter Neil, [facility] [id number] Univers 00:00:00 00:00:00 (Out) Meme Guy HOSTESS HOST 350.1.13.10 ity of [facility] 4.2.7.2.686 Reginald as MATERNAL [id number] Med ical & CHILD [address] [place] [address] 2021-08-13 2021-08-13 Emergency X [facility] ERT [id number] Univers 10:28:00 11:01:00 JENNI pradip [facility] 2021-08-13 2021-08-13 Emergency [facility] [id number] Univers 10:28:00 11:01:00 [facility] [id number] i ty [facility] 4.2.7.2.686 [place] [facility] [phone] [facility] [address] [place] 2021-08-13 2021-08-13 Orders Doctor JOANNE 1.2.840.114 [id number] Univers 00:00:00 00:00:00 Only Unassigned, GIANNI 350.1.13.10 ity of [place] [facility] 4.2.7.2.686 Reginald as [id number] [address] 2020-11-25 2020-11-25 Outpatient R [facility] [id number] Univers 09:00:00 09:00:00 ity [facility] 2020-11-22 2020-11-22 Telemedici Trimester, [facility] Res-1s t UNIVERSIT 1.2.840.114 [id number] Univers 10:45:00 11:00:00 ne Visit Shayne Mitchell [facility] 350.1.13.10 ity of [place], Allen [facility] 4.2.7.2.686 [place] [id number] [address] 2020-11-22 2020-11-22 Outpatient R CORETTA [facility] [id number] Univers 10:45:00 10:45:00 SHAYNE itmichelle [facility] 2020-11-08 2020-11-08 Routine Trimester, [facility] Res-1st UNIVERSIT 1.2.840.114 [id number] Univers 10:00:57 10:35:05 [facility] 350.1.13.10 ity of Visit CLINICS 4.2.7.2.[place] [id number] [address] 2020-11-08 2020-11-08 Outpatient R [facility] [id number] Univers 10:00:00 10:00:00 ity of [facility] 2020-11-06 2020-11-06 Outpatient R [facility] [id number] Univers 16:45:00 16:45:00 DIPAKA pradip o [facility] 2020-11-06 2020-11-06 [facility] [id number] Univers 00:00:00 00:00:00 Rosfranka R [facility]ESS HOST 350.1.13.10 ity of REGIONAL 4.2.7.2.686 Reginald as MATERNAL [id number] [facility] & CHILD [address] [place] [address] 2020-11-05 2020-11-05 Office [facility] 1.2.840.114 [id number] Univers 15:59:30 16:27:56 Visit Daishabroderick R [facility]OSTESS HOST 350.1.13.10 ity of REGIONAL 4.2.7.2.686 Reginald as MATERNAL [id number] [facility] & CHILD [address] [place] [address] 2020-11-05 2020-11-05 Outpatient R [facility] [id number] Univers 16:00:00 16:00:00 ROSLEATHANDA ity o [facility] 2020-11-05 2020-11-05 Telephone [facility] [id number] Univers 00:00:00 00:00:00 Chelo R HOSTESS HOST 350.1.13.10 ity of [facility] 4.2.7.2.686 Reginald as MATERNAL [id number] [facility] & CHILD [address] [place] [address] 2020-10-29 2020-10-29 Outpatient R [facility] [id number] Univers 16:30:00 16:30:00 CHELO moseley o [facility] 2020-10-21 2020-10-21 Outpatient R [facility] [id number] Univers 15:30:00 15:30:00 CHELO moseley o [facility] 2020-10-18 2020-10-18 [facility], [facility] 1.2.840. 114 [id number] Univers 15:09:36 15:26:25 Visit Daisha Careyfred Lomax HOSTESS HOST 350.1.13.10 ity of [facility] 4.2.7.2.686 Reginald as MATERNAL [id number] [facility] & CHILD [address] [place] [address] 2020-10-18 2020-10-18 Outpatient Dami [facility] [id number] Univers 15:15:00 15:15:00 CHELO moseley o [facility] 2020-10-18 2020-10-18 Telephone [facility] [id number] Univers 00:00:00 00:00:00 Daishafred R HOSTESS HOST 350.1.13.10 ity of [facility] 4.2.7.2.686 Reginald as MATERNAL [id number] [facility] & CHILD [address] [place] [address] 2020-10-14 2020-10-14 Outpatient R [facility] [id number] Univers 10:45:00 10:45:00 ity of [facility] 2020-10-11 2020-10-11 Orders Doctor RUBIO 1.2.840.114 [id number] Univers 00:00:00 00:00:00 Only Unassigned, GIANNI 350.1.13.10 ity of [place] [facility] 4.2.7.2.686 Reginald as [id number] [address] 2020-10-11 2020-10-11 Telephone Cherry [facility] [id number] Univers 00:00:00 00:00:00 Rosleathanda R HOSTESS HOST 350.1.13.10 ity of [facility] 4.2.7.2.686 Reginald as MATERNAL [id number] Med ical & CHILD [address] [place] [address] 2020-10-01 2020-10-01 Routine Trimester, [facility] Res-1st UNIVERSIT 1.2.840.114 [id number] Univers 09:29:23 11:47:08 [place] Zachariah [facility] 350.1.13.10 ity of Visit CLINICS 4.2.7.2.[place] [id number] [address] 2020-10-01 2020-10-01 Outpatient R [facility] [id number] Univers 09:30:00 09:30:00 ity of [facility] [place] [facility] 2020-10-01 2020-10-01 Orders Doctor JOANNE 1.2.840.114 [id number] Univers 00:00:00 00:00:00 Only Unassigned, GIANNI 350.1.13.10 ity of [place] [facility] 4.2.7.2.686 Reginald as [id number] [address] 2020-09-30 2020-09-30 Routine Carey [facility] 1.2.840.114 [id number] Univers 09:48:35 10:19:37 Dipaka R HOSTESS HOST 350.1.13.10 ity of Visit [facility] 4.2.7.2.686 Reginald as MATERNAL [phone] Med ical & CHILD [address] [place] [address] 2020-09-30 2020-09-30 Saw Filer Ultrasound, Fausto [facility] 1.2 .840.114 [id number] Univers 09:24:35 09:48:43 Visit Meme Trejo HOSTESS HOST 350.1.13. 10 ity of Hernan Mckeon [facility] 4.2.7.2.686 [place] MATERNAL [phone] Med ical & [place] 369 [facility] 2020-09-30 2020-09-30 Saw Filer Lab, Ang-Rmchp [facility] 1.2.840. 114 [id number] Univers 08:47:58 09:02:58 Visit Meme Trejo Malena HOSTESS HOST 350.1.13. 10 ity of REGIONAL 4.2.7.2.686 Reginald as MATERNAL [phone] Med ical & [place]ILD 107 [facility] 2020-09-30 2020-09-30 Outpatient R [facility] [id number] Univers 08:30:00 08:30:00 ity of [facility] 2020-09-30 2020-09-30 Telephone Cherry MSNAA [id number] Univers 00:00:00 00:00:00 Chelo Lomax HOSTESS HOST 350.1.13.10 ity of REGIONAL 4.2.7.2.686 Reginald as MATERNAL [phone] [facility] & CHILD [address] [place] [address] 2020-09-25 2020-09-25 Telephone Cherry MSNAA 1.2.485.452 [id number] Univers 00:00:00 00:00:00 Chelo R HOSTESS HOST 350.1.13.10 ity of REGIONAL 4.2.7.2.686 Reg[place]d as MATERNAL [phone] [facility] & CHILD [address] [place] [address] 2020-09-23 2020-09-23 Initial Cherry MSNAA 1.2.840.114 [id number] Univers 14:13:53 15:44:35 Rosleathanda R HOSTESS HOST 350.1.13.10 ity of Visit REGIONAL 4.2.7.2.686 Reginald as MATERNAL [phone] [facility] & CHILD [address] [place] [address] 2020-09-23 2020-09-23 Outpatient R CHERRY [facility] [id number] Univers 14:00:00 14:00:00 ROSLEATHANDA anilay o f [facility] 2020-09-23 2020-09-23 Orders Doctor RUBIO 1.2.840.114 [id number] Univers 00:00:00 00:00:00 Only Unassigned, GIANNI 350.1.13.10 ity of [facility] 4.2.7.2.686 Reginald as [phone] [address] 2020-07-30 2020-07-[address] [facility] 1.2.840.114 [id number] Univers 00:00:00 00:00:00 Outreach Trey PRIMARY 350.1.13.10 i ty of [facility] 4.2.7.2.686 [place] [phone] [place] [address] 2020-04-25 2020-04-25 Outpatient R GIAN [facility] [id number] Univers 16:00:00 16:00:00 EMILY moseley [facility] 2020-02-28 2020-02-28 Outpatient R [facility] [id number] Univers 13:30:00 13:30:00 pradip [facility] 2019-11-28 2019-11-28 Nurse Visit, [facility] 1.2.840.114 [id number] 16:05:10 16:35:57 [facility] 350.1.13.10 Nurse [facility] 4.2.7.2.686 MATERNAL [phone] & CHILD 107 [facility] 2019-11-28 2019-11-28 [facility] 1.2 .840.114 [id number] Univers 16:05:10 16:35:57 Visit Emily Springer HOSTESS HOST 350.1.13.10 ity of [facility] 4.2.7.2.686 Reg[place]d as MATERNAL [phone] Med ical & CHILD 107 [facility] 2019-11-28 2019-11-28 Outpatient R GIAN [facility] [id number] Univers 14:00:00 14:00:00 EMILY moseley [facility] 2019-11-27 2019-11-27 Telephone Neil [facility] 1.2.840.114 [id number] 00:00:00 00:00:00 Meme Guy HOSTESS HOST 350.1.13.10 REGIONAL 4.2.7.2.686 MATERNAL [phone] & CHILD 107 [facility] 2019-11-27 2019-11-27 Telephone [facility] 1.2.840.114 [id number] Univers 00:00:00 00:00:00 Meme C HOSTESS HOST 350.1.13.10 ity of [facility] 4.2.7.2.686 [place] as MATERNAL [phone] [facility] & CHILD [address] [place] [address] 2019-11-24 2019-11-24 Office [facility] 1.2.633.229 [id number] Univers 12:47:22 13:38:45 Visit Meme C HOSTESS HOST 350.1.13.10 ity of [facility] 4.2.7.2.686 [place] MATERNAL [phone] [address] 2019-11-24 2019-11-24 [facility] [id number] Univers 12:45:00 12:45:00 MEME ity o f [facility] 2019-11-24 2019-11-24 Telephone [facility] 1.2.840.114 [id number] Univers 00:00:00 00:00:00 Meme C HOSTESS HOST 350.1.13.10 ity of [facility] 4.2.7.2.686 [place] as MATERNAL [phone] [address] 2019-11-24 2019-11-24 Orders Doctor JOANNE 1.2.840.114 [id number] Univers 00:00:00 00:00:00 Only Unassigned, GIANNI 350.1.13.10 ity of [facility] 4.2.7.2.686 Reginald as [phone] [address] 2019-11-24 2019-11-24 Letter [facility] [id number] Univers 00:00:00 00:00:00 (Out) Meme C HOSTESS HOST 350.1.13.10 ity of [facility] 4.2.7.2.686 Reginald as MATERNAL [phone] [facility] & CHILD [address] [place] [address] 2019-11-09 2019-11-09 Outpatient R DUTCH [facility] [id number] Univers 16:20:00 16:20:00 RIK ity of [facility] 2019-01-25 2019-01-26 Hospital Luz Marina Palma [facility] 1.2.840.114 [id number] Univers 09:10:00 20:45:00 Encounter Grzegorz Alcon 350.1.13.10 ity of [place].7.2.[place] [phone] [facility] [address] 2019-01-25 2019-01-25 Orders Doctor JOANNE 1.2.840.114 [id number] Univers 00:00:00 00:00:00 Only Unassigned, GIANNI 350.1.13.10 ity of [place] [facility] 4.2.7.2.686 Reginald as [phone] [facility] [address] 2019-01-18 2019-01-18 Routine A[place], [facility] [id number] [facility] 13:13:34 14:03:06 Meme C HOSTESS HOST 350.1.13.10 ity of Visit REGIONAL 4.2.7.2.686 [place] as MATERNAL [phone] [facility] ical & CHILD [address] [place] [address] 2019-01-11 2019-01-11 Routine Akinsipe, [facility] 1.2.269.846 [id number] [facility] 14:56:31 15:42:02 Meme C HOSTESS HOST 350.1.13.10 ity of Visit REGIONAL 4.2.7.2.686 Reginald as MATERNAL [phone] [facility] & CHILD [address] [place] [address] 2019-01-04 2019-01-04 Routine Akinsipe, [facility] 1.2.044.507 [id number] [facility] 10:45:17 11:24:54 Meme C HOSTESS HOST 350.1.13.10 ity of Visit REGIONAL 4.2.7.2.686 Reginald as MATERNAL [phone] [facility] ical & CHILD [address] [place] [address] 2018-12-15 2018-12-15 Routine Akinsipe, [facility] 1.2.336.851 [id number] Univers 13:22:12 13:41:21 Meme C HOSTESS HOST 350.1.13.10 ity of Visit REGIONAL 4.2.7.2.686 Reg[place]d as MATERNAL [phone] Med ical & CHILD [address] [place] [address] Results This patient has no known results.
[2022-04-09 14:02] LABS: SARS-COV-2 RT PCR NEGATIVE (NEGATIVE)
--- NOTE | 2022-04-09 14:40 | EDPHYS ---
Physician Documentation [facility] Name: Guillermina Carlson Age: 22 yrs Sex: Female : 2000 Arrival Date: 04/09/2022 Time: 13:03 Bed DIS1 Private MD: ED Physician Marcio Chance HPI: 04/09 14:30 This 22 yrs old Female presents to ER via Ambulatory with complaints of Cough, cp Sore Throat, Ear Pain. 14:30 The patient or guardian reports cough, that is intermittent. Onset: The cp symptoms/episode began/occurred last week. Associated signs and symptoms: Pertinent positives: earache, sore throat, Pertinent negatives: diarrhea, vomiting. 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 - Social history:: Smoking status: Patient denies any tobacco usage or history of. Patient/guardian denies using alcohol. ROS: 14:35 Constitutional: Negative for body aches, chills, fever, poor PO intake. cp 14:35 ENT: Positive for ear pain, rhinorrhea, sore throat. cp 14:35 Respiratory: Positive for cough, Negative for shortness of breath, wheezing. 14:35 Eyes: Negative for injury, pain, redness, and discharge. cp 14:35 Abdomen/GI: Negative for abdominal pain, nausea, vomiting, and diarrhea. cp 14:35 Skin: Negative for rash. 14:35 Neuro: Negative for altered mental status, headache. 14:35 All other systems are negative. Exam: 14:37 Head/Face: Normocephalic, atraumatic. cp 14:37 Constitutional: The patient appears in no acute distress, alert, awake, non-toxic, well developed, well nourished. 14:37 Eyes: Periorbital structures: appear normal, Conjunctiva: normal, no exudate, no injection, Lids and lashes: appear normal, bilaterally. 14:37 ENT: External ear(s): are unremarkable, Ear canal(s): are normal, clear, TM's: bulging, on the right, erythema, that is moderate, on the right, Nose: is normal, Mouth: Lips: moist, Oral mucosa: moist, Posterior pharynx: Airway: no evidence of obstruction, patent, Tonsils: with erythema, no enlargement, no exudate, swelling, is not appreciated, erythema, that is mild, exudate, is not appreciated. 14:37 Neck: ROM/movement: is normal, is supple, without pain, no range of motions limitations, no meningismus, Lymph nodes: no appreciated lymphadenopathy. 14:37 Chest/axilla: Inspection: normal. 14:37 Cardiovascular: Rate: normal, Rhythm: regular. cp 14:37 Respiratory: the patient does not display signs of respiratory distress, Respirations: cp normal, no use of accessory muscles, no retractions, labored breathing, is not present, Breath sounds: stridor, is not appreciated, + upper airway congestion. wheezing: is not appreciated. 14:37 Abdomen/GI: Exam negative for discomfort, distension, guarding, Inspection: abdomen appears normal. 14:37 Skin: no rash present. Vital Signs: 13:09 BP 130 / 74; Pulse 97; Resp 18; Temp 97.6(TE); Pulse Ox 100% on R/A; Weight 79.38 kg; ld1 Height 5 ft. 2 in. (157.48 cm); Pain 0/10; 13:09 Body Mass Index 32.01 (79.38 kg, 157.48 cm) ld1 MDM: 13:18 Patient medically screened. [facility] 13:30 Differential Diagnosis: Bronchitis Influenza Sinusitis Otitis Media Pneumonia. cp 14:40 Data reviewed: vital signs, nurses notes, lab test result(s). cp 14:40 Counseling: I had a detailed discussion with the patient and/or guardian regarding: the cp historical points, exam findings, and any diagnostic results supporting the discharge/admit diagnosis, lab results, to return to the emergency department if symptoms worsen or persist or if there are any questions or concerns that arise at home. 04/09 13:12 Order name: COVID-19/FLU A+B ld1 04/09 13:12 Order name: Strep ld1 04/09 13:40 Order name: Throat Culture EDMS Administered Medications: No medications were administered Disposition Summary: 04/09/22 14:40 Discharge Ordered Location: Home cp Problem: new cp Symptoms: are unchanged cp Condition: Stable cp Diagnosis - Otitis media, unspecified, right ear cp - Acute upper respiratory infection, unspecified cp Followup: cp - With: Private Physician - When: 2 - 3 days - Reason: Worsening of condition Discharge Instructions: - Discharge Summary Sheet cp - Otitis Media, Adult cp - Upper Respiratory Infection, Adult cp - Form - Excuse from Work, School, or Physical Activity cp Forms: - Medication Reconciliation Form cp - Thank You Letter cp - Antibiotic Education cp - Prescription Opioid Use cp - Work release form jl7 Prescriptions: - Bromfed DM 2-30-10 mg/5 mL Oral syrup - take 10 milliliter by ORAL route every 6 hours; 180 milliliter; Refills: 0, cp Product Selection Permitted - Augmentin 875-125 mg Oral Tablet - take 1 tablet by ORAL route every 12 hours for 10 days; 20 tablet; Refills: 0, cp Product Selection Permitted Addendum: 04/12/2022 07:56 Co-signature as Attending Physician, Marcio Chance MD I agree with the assessment and c solorzano plan of care. Signatures: Dispatcher [employer] Marcio Lopez MD MD cha Page, Corey PA PA cp Sana Sorenson, RN RN ld1
--- NOTE | 2022-04-09 14:40 | ER ---
Nurse's Notes [facility] Name: Guillermina Carlson Age: 22 yrs Sex: Female : 2000 Arrival Date: 04/09/2022 Time: 13:03 Bed DIS1 Private MD: Diagnosis: Otitis media, unspecified, right ear;Acute upper respiratory infection, unspecified Presentation: 04/09 13:09 Chief complaint: Patient states: Sore throat, dry cough, right ear pain. Coronavirus ld1 screen: At this time, the client does not indicate any symptoms associated with coronavirus-19. Ebola Screen: No symptoms or risks identified at this time. Initial Sepsis Screen: Does the patient meet any 2 criteria? No. Patient's initial sepsis screen is negative. Does the patient have a suspected source of infection? No. Patient's initial sepsis screen is negative. Risk Assessment: Do you want to hurt yourself or someone else? Patient reports no desire to harm self or others. Onset of symptoms was April 09, 2022. 13:09 Method Of Arrival: Ambulatory ld1 13:09 Acuity: SHIRLEY 4 ld1 Triage Assessment: 13:10 General: Appears in no apparent distress. comfortable, Behavior is calm, cooperative, ld1 appropriate for age. Pain: Denies pain. EENT: Reports pain in uvula. Neuro: Level of Consciousness is awake, alert, obeys commands, Oriented to person, place, time, situation. Cardiovascular: Capillary refill < 3 seconds Patient's skin is warm and dry. Respiratory: Airway is patent Respiratory effort is even, unlabored. GI: Abdomen is round non-distended. : No signs and/or symptoms were reported regarding the genitourinary system. Derm: No signs and/or symptoms reported regarding the dermatologic system. Musculoskeletal: No signs and/or symptoms reported regarding the musculoskeletal system. 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 - Social history:: Smoking status: Patient denies any tobacco usage or history of. Patient/guardian denies using alcohol. Vital Signs: 13:09 BP 130 / 74; Pulse 97; Resp 18; Temp 97.6(TE); Pulse Ox 100% on R/A; Weight 79.38 kg; ld1 Height 5 ft. 2 in. (157.48 cm); Pain 0/10; 13:09 Body Mass Index 32.01 (79.38 kg, 157.48 cm) ld1 ED Course: 13:03 Patient arrived in ED. as 13:10 Triage completed. ld1 13:10 Arm band placed on right wrist. ld1 13:13 Marcio Robertson PA is PHCP. cp 13:13 Marcio Chance MD is Attending Physician. cp 13:13 Strep Sent. ld1 13:13 COVID-19/FLU A+B Sent. ld1 14:35 Melissa Jay, RN is Primary Nurse. iw Administered Medications: No medications were administered Outcome: 14:40 Discharge ordered by MD. cp 14:47 Patient left the ED. jl7 Signatures: Blanche Moya as Melissa Jay, RN RN iw Marcio Robertson PA PA Karolyn Michele RN RN jl7 Sana Sorenson RN RN ld1
[2022-04-09 14:51] VITALS: BP 130/74; TEMP 97.6; O2SAT 100
== END 2022-04-09 14:47 | disposition home or self-care (01) ==
LOC: ER 12:59
DX: J06.9 Acute upper respiratory infection, unspecified (principal); H66.91 Otitis media, unspecified, right ear; Z20.822 Contact with and (suspected) exposure to COVID-19
CPT/HCPCS: 87070; 87081; 0240U; 99282

== ENCOUNTER 2022-07-07 09:59 | Emergency (ER) | payer OTHER ==
--- OUTSIDE RECORDS SUMMARY | 2022-07-07 10:06 | XMS REPORT | Continuity of Care Document ---
:[address] [facility] t Address [address] [place] [address] Care Team Providers Name Role Phone YUMIKO CASTELLON Primary Care Physician Unavailable SHAYNE MITCHELL Attending Clinician Unavailable YUMIKO CASTELLON Attending Clinician Unavailable MEME TREJO Attending Clinician Unavailable Yumiko Castellon CNM Attending Clinician Neil Meme CANCHOLA Attending Clinician [phone] Doctor Unassigned, [place] Attending Clinician Unavailable CHELO CAREY Attending Clinician Unavailable [facility]st Attending Clinician Unavailable Yvette Leiva MD Attending Clinician YVETTE LEIVA Attending Clinician Unavailable NATALIYA SPRINGER Attending Clinician Unavailable Nataliya Springer DO Attending Clinician Bryan BAUER Attending Clinician Unavailable Bryan Jansen Attending Clinician JENNI OSEI Attending Clinician Unavailable Jenni Osei DO Attending Clinician Shayne Mitchell MD Attending Clinician Allen Villalta MD Attending Clinician Chelo Olivier Attending Clinician Lab, [facility] Attending Clinician Unavailable Ultrasound, Fausto Attending Clinician Unavailable Hernan Mckeon MD Attending Clinician Trey Laird DO Attending Clinician EMILY SPRINGER Attending Clinician Unavailable Visit, Keyur Nurse Attending Clinician Unavailable Emily Valdovinos Attending Clinician RIK JUDD Attending Clinician Unavailable Louie REYES, Luz Marina Lantigua Attending Clinician NATALIYA SPRINGER Admitting Clinician Unavailable Luz Marina Palma MD Admitting Clinician Payers Payer Name Policy Type Policy Number Effective Date Expiration Date [facility] [id number] 2020 [facility] STAR 00:00:00 MEDICAID [facility] [id number] 2020 00:00:00 MEDICAID PENDING PENDING 2020 00:00:00 Problems Condition Condition Condition Status Onset Resolution Last Treating Co mments Source Name Details Category Date Date Treatment Clinician Date Supervisio Supervisio Disease Active 2021-05 U nivers n of n of 2-08 [place] [facility] Branch Herpes Herpes Disease Active Overview: Univer s infection infection 10-03 Formattin i ty of in in 00:00: g of this [place] 00 note [facility] might be Branch different from the original. Suppressi on at 36 weeks Susceptibl Susceptibl Disease Active Overview : Univers e to e to 09-09 Formattin ity of varicella varicella 00:00: [place] (non-immun (non-immun 00 note Me dical e), e), might be Branch currently currently different from the original. Address pp Multiparit Multiparit Disease Active U nivers y y - ity of 00:00: [place] 00 Medical Branch History of History of Disease Active Overview : Univers miscarriag miscarriag 09-05 Formattin ity of e e 00:00: g of this [place] 00 note Medical might be Branch different from the original. x2 Disease Active Uni vers of unknown of unknown 09-05 it y of anatomic anatomic 00:00: [place] location location 00 Medica l Branch Obesity in Obesity in Disease Active 2018-05 U nivers 2-06 ity of 00:00: [place] 00 Medical Branch Anemia Anemia Disease Active Univers associated associated 9 it y of with acute with acute 00:[place] blood loss blood loss 00 Me dical Branch Rubella Rubella Disease Active Overview: Univ ers non-immune non-immune 06-09 Formattin ity of status, status, 00:00: g of this [place] antepartum antepartum 00 note Me dical might be Branch different from the original. Address pp Generalize Generalize Disease Active U nivers d anxiety d anxiety 01-07 ity of disorder disorder 00:00: [place] 00 Medical [place] Allergies, Adverse Reactions, Alerts Allergy Allergy Status Severity Reaction(s) Onset Inactive Treating Comm ents Source Name Type Date Date Clinician NO KNOWN Drug Active Univers ALLERGIE Class ity of S [facility] [place] Social History Social Habit Start Date Stop Date Quantity Comments Source ASSERTION 2022-03-25 University of 00:00:00 [facility] [place] History SDOH [facility] [place] History SDOH University o f Alcohol Std [place] Medical Drinks Branch History SDCO University o f Alcohol Binge [facility] Branch Exposure to 2022-04-06 2022-04-16 Not sure University of SARS-CoV-2 00:00:00 10:21:00 [facility] (event) Branch Alcohol intake 2022-04-16 2022-04-16 Current drinker of Un iversity of 00:00:00 00:00:00 alcohol (finding) [facility] [place] Tobacco use and 2022-04-16 2022-04-16 Smokeless tobacco Un iversity of exposure 00:00:00 00:00:00 non-user [facility] [place] Tobacco Comment 2022-04-16 2022-04-16 quit 2 months ago- U niversity of 00:00:00 00:00:00 2-3 cigarrettes [place] Med ical few days Branch Alcohol Comment 2021-08-22 2021-08-22 social Universit y of 00:00:00 00:00:00 [facility] [place] History of 2018-04-14 Cigarette Smoker Universi ty of tobacco use 00:00:00 [facility] [place] Sex Assigned At [birth year] Universit y of 00:00:00 00:00:00 [facility] [place] Smoking Status Start Date Stop Date Source Ex-smoker 2022-04-16 00:00:00 2022-04-16 00:00:00 [facility] Medical [place] Medications Ordered Filled Start Stop Current Ordering Indication Dosage Frequency Signature Comments Components Source Medication Medication Date Date Medication? Clinician (SIG) Name Name amoxicillin 2021-05- Yes [id number] 500mg Take 1 Univers 500 mg 2-13 05-02 tablet by ity of tablet 00:00: 05:59 mouth in [place] 00 :00 the Medical morning Branch and 1 tablet in the evening. Do all this for 10 days. 2021-05 Yes [id number] 1{tbl} Take 1 U nivers multivitami 2-08 tablet by ity of n ( [place] VITAMIN[place] 00 the Medical tablet morning. Branch 2021-05 Yes [id number] 1{tbl} Take 1 U nivers multivitami 2-08 tablet by ity of n ( [place] VITAMIN[place] 00 the Medical tablet morning. Branch 2021-05 Yes [id number] 1{tbl} Take 1 U nivers multivitami 2-08 tablet by ity of n ( 00:[place] VITAMIN[place] 00 the Medical tablet morning. Branch 2021-05 Yes [id number] 1{tbl} Take 1 U nivers multivitami 2-08 tablet by ity of n ( 00:00[place] VITAMIN[place] 00 the Medical tablet morning. Branch 2021-05 Yes [id number] 1{tbl} Take 1 U nivers multivitami 2-08 tablet by ity of n ( 00:00[place] VITAMIN[place] 00 the Medical tablet morning. Branch 2021-05 Yes [id number] 1{tbl} Take 1 U nivers multivitami 2-08 tablet by ity of n ( 00:[place] VITAMIN[place] 00 the Medical tablet morning. Branch 2021-05 Yes [id number] 1{tbl} Take 1 U nivers multivitami 2-08 tablet by ity of n ( 00:00[place] VITAMIN[place] 00 the Medical tablet morning. Branch amoxicillin 2021-05 Yes TAKE 1 Univ ers -clavulanat 2-01 TABLET BY ity of e 875-125 00:00: MOUTH [place] mg per 00 EVERY 12 Medical tablet HOURS FOR Branch 10 DAYS. amoxicillin 2021-05 Yes TAKE 1 Univ ers -clavulanat 2-01 TABLET BY ity of e 875-125 00:00: MOUTH [place] mg per 00 EVERY 12 Medical tablet HOURS FOR Branch 10 DAYS. amoxicillin 2021-05 Yes TAKE 1 Univ ers -clavulanat 2-01 TABLET BY ity of e 875-125 00:00: MOUTH [place] mg per 00 EVERY 12 Medical tablet HOURS FOR Branch 10 DAYS. amoxicillin 2021-05 Yes TAKE 1 Univ ers -clavulanat 2-01 TABLET BY ity of e 875-125 00:00: MOUTH [place] mg per 00 EVERY 12 Medical tablet HOURS FOR Branch 10 DAYS. amoxicillin 2021-05 Yes TAKE 1 Univ ers -clavulanat 2-01 TABLET BY ity of e 875-125 00:00: MOUTH [place] mg per 00 EVERY 12 Medical tablet HOURS FOR Branch 10 DAYS. amoxicillin 2021-05- No TAKE 1 Uni vers -clavulanat 2-01 12-13 TABLET BY it y of e 875-125 00:00: 00:00 MOUTH [place] mg per 00 :00 EVERY 12 Medical tablet HOURS FOR Branch 10 DAYS. amoxicillin 2021-05- No TAKE 1 Uni vers -clavulanat 2-01 12-13 TABLET BY it y of e 875-125 00:00: 00:00 MOUTH [place] mg per 00 :00 EVERY 12 Medical tablet HOURS FOR Branch 10 DAYS. proMETHazin 2021- Yes [id number] 25mg Take 1 Univers e 25 mg 5-27 tablet by ity of tablet 00:00: mouth [place] 00 every 6 Medical (six) Branch hours as needed for Nausea and Vomiting (N/V). proMETHazin 2021- No [id number] 25mg Take 1 Univers e 25 mg 5-27 12-08 tablet by ity of tablet 00:00: 00:00 mouth [place] 00 :00 every 6 Medical (six) Branch hours as needed for Nausea and Vomiting (N/V). proMETHazin 2021- No [id number] 25mg Take 1 Univers e 25 mg 5-27 12-08 tablet by ity of tablet 00:00: 00:00 mouth [place] 00 :00 every 6 Medical (six) Branch hours as needed for Nausea and Vomiting (N/V). proMETHazin 2021- No [id number] 25mg Take 1 Univers e 25 mg 5-27 12-08 tablet by ity of tablet 00:00: 00:00 mouth [place] 00 :00 every 6 Medical (six) Branch hours as needed for Nausea and Vomiting (N/V). proMETHazin 2021- No [id number] 25mg Take 1 Univers e 25 mg 5-27 12-08 tablet by ity of tablet 00:00: 00:00 mouth [place] 00 :00 every 6 Medical (six) Branch hours as needed for Nausea and Vomiting (N/V). Yes [id number] 1{tbl} Take 1 U nivers multivitami 4-29 tablet by ity of n ( 00:00: mouth [place] VITAMIN) 00 daily. Medical tablet Branch 2021- No [id number] 1{tbl} Take 1 Univers multivitami 4-29 12-08 tablet by it y of n ( 00:00: 00:[place] VITAMIN[place] 00 :00 daily. Medical tablet Branch 2021- No [id number] 1{tbl} Take 1 Univers multivitami 4-29 12-08 tablet by it y of n ( 00:00: 00:[place] VITAMIN[place] 00 :00 daily. Medical tablet Branch 2021- No [id number] 1{tbl} Take 1 Univers multivitami 4-29 12-08 tablet by it y of n ( 00:00: 00:[place] VITAMIN[place] 00 :00 daily. Medical tablet Branch 2021- No [id number] 1{tbl} Take 1 Univers multivitami 4-29 12-08 tablet by it y of n ( 00:00: 00:[place] VITAMIN[place] 00 :00 daily. Medical tablet Branch Immunizations Ordered Immunization Filled Immunization Date Status Commen ts Source Name Name Influenza Virus 2019-04-14 Completed Universit y of Vaccine [place] .5 mL 00:00:00 [facility] IM 6+ MO Branch Influenza Virus 2019-04-14 Completed Universit y of Vaccine [place] .5 mL 00:00:00 [place] Medical IM 6+ MO Branch Influenza Virus 2019-04-14 Completed Universit y of Vaccine [place] .5 mL 00:00:00 [place] [facility] IM 6+ MO Branch Influenza Virus 2019-04-14 Completed Universit y of Vaccine [place] .5 mL 00:00:00 [place] [facility] IM 6+ MO Branch Influenza Virus 2019-04-14 Completed Universit y of Vaccine [place] .5 mL 00:00:00 [place] [facility] IM 6+ MO Branch Influenza Virus 2019-04-14 Completed Universit y of Vaccine [place] .5 mL 00:00:00 [place] [facility] IM 6+ MO Branch Influenza Virus 2019-04-14 Completed Universit y of Vaccine [place] .5 mL 00:00:00 [place] [facility] IM 6+ MO Branch Influenza Virus 2019-04-14 Completed Universit y of Vaccine [place] .5 mL 00:00:00 [place] [facility] 6+ MO Branch MMR 2019-01-26 Completed University of 00:00:00 [facility] Branch MMR 2019-01-26 Completed University of 00:00:00 [place] [facility] MMR 2019-01-26 Completed University of 00:00:00 [place] [facility] MMR 2019-01-26 Completed University of 00:00:00 [place] [facility] MMR 2019-01-26 Completed University of 00:00:00 [place] [facility] MMR 2019-01-26 Completed University of 00:00:00 [place] [facility] MMR 2019-01-26 Completed University of 00:00:00 [place] [facility] MMR 2019-01-26 Completed University of 00:00:00 [facility] Branch TDAP 2018-11-02 Completed University of 00:00:00 [facility] Branch TDAP 2018-11-02 Completed University of 00:00:00 [place] [facility] TDAP 2018-11-02 Completed University of 00:00:00 [place] [facility] TDAP 2018-11-02 Completed University of 00:00:00 [place] [facility] TDAP 2018-11-02 Completed University of 00:00:00 [place] [facility] TDAP 2018-11-02 Completed University of 00:00:00 [place] [facility] TDAP 2018-11-02 Completed University of 00:00:00 [facility] [place] TDAP 2018-11-02 Completed University of 00:00:00 [facility] [place] HPV9 2016-04-20 Completed University of 00:00:00 [facility] [place] TDAP 2016-04-20 Completed University of 00:00:00 [place] [facility] HPV9 2016-04-20 Completed University of 00:00:00 [place] [facility] TDAP 2016-04-20 Completed University of 00:00:00 [place] [facility] HPV9 2016-04-20 Completed University of 00:00:00 [place] [facility] TDAP 2016-04-20 Completed University of 00:00:00 [place] [facility] HPV9 2016-04-20 Completed University of 00:00:00 [place] [facility] TDAP 2016-04-20 Completed University of 00:00:00 [place] [facility] HPV9 2016-04-20 Completed University of 00:00:00 [place] [facility] TDAP 2016-04-20 Completed University of 00:00:00 [place] [facility] HPV9 2016-04-20 Completed University of 00:00:00 [place] [facility] TDAP 2016-04-20 Completed University of 00:00:00 [place] [facility] HPV9 2016-04-20 Completed University of 00:00:00 [place] [facility] TDAP 2016-04-20 Completed University of 00:00:00 [place] [facility] HPV9 2016-04-20 Completed University of 00:00:00 [place] [facility] TDAP 2016-04-20 Completed University of 00:00:00 [place] [facility] HPV 2014-12-19 Completed University of 00:00:00 [place] [facility] HPV 2014-12-19 Completed University of 00:00:00 [place] [facility] HPV 2014-12-19 Completed University of 00:00:00 [place] [facility] HPV 2014-12-19 Completed University of 00:00:00 [place] [facility] HPV 2014-12-19 Completed University of 00:00:00 [place] [facility] HPV 2014-12-19 Completed University of 00:00:00 [place] [facility] HPV 2014-12-19 Completed University of 00:00:00 [place] [facility] HPV 2014-12-19 Completed University of 00:00:00 [place] [facility] MMR 2014-01-24 Completed University of 00:00:00 [place] [facility] MMR 2014-01-24 Completed University of 00:00:00 [place] [facility] MMR 2014-01-24 Completed University of 00:00:00 [place] [facility] MMR 2014-01-24 Completed University of 00:00:00 [place] [facility] MMR 2014-01-24 Completed University of 00:00:00 [place] [facility] MMR 2014-01-24 Completed University of 00:00:00 [place] [facility] MMR 2014-01-24 Completed University of 00:00:00 [facility] Branch MMR 2014-01-24 Completed University of 00:00:00 [facility] Branch HEPATITIS A 2013-11-20 Completed University of 00:00:00 [place] [facility] HPV 2013-11-20 Completed University of 00:00:00 [place] [facility] HEPATITIS A 2013-11-20 Completed University of 00:00:00 [place] [facility] HPV 2013-11-20 Completed University of 00:00:00 [place] [facility] HEPATITIS A 2013-11-20 Completed University of 00:00:00 [place] [facility] HPV 2013-11-20 Completed University of 00:00:00 [place] [facility] HEPATITIS A 2013-11-20 Completed University of 00:00:00 [place] [facility] HPV 2013-11-20 Completed University of 00:00:00 [place] [facility] HEPATITIS A 2013-11-20 Completed University of 00:00:00 [place] [facility] HPV 2013-11-20 Completed University of 00:00:00 [place] [facility] HEPATITIS A 2013-11-20 Completed University of 00:00:00 [place] [facility] HPV 2013-11-20 Completed University of 00:00:00 [place] [facility] HEPATITIS A 2013-11-20 Completed University of 00:00:00 [place] [facility] HPV 2013-11-20 Completed University of 00:00:00 [facility] Branch HEPATITIS A 2013-11-20 Completed University of 00:00:00 [facility] Branch HPV 2013-11-20 Completed University of 00:00:00 [facility] [place] Influenza Virus 2013-04-12 Completed Universit y of Vaccine 00:00:00 [facility] [place] Influenza Virus 2013-04-12 Completed Universit y of Vaccine 00:00:00 [facility] [place] Influenza Virus 2013-04-12 Completed Universit y of Vaccine 00:00:00 [facility] [place] Influenza Virus 2013-04-12 Completed Universit y of Vaccine 00:00:00 [facility] [place] Influenza Virus 2013-04-12 Completed Universit y of Vaccine 00:00:00 [facility] [place] Influenza Virus 2013-04-12 Completed Universit y of Vaccine 00:00:00 [facility] [place] Influenza Virus 2013-04-12 Completed Universit y of Vaccine 00:00:00 [facility] [place] Influenza Virus 2013-04-12 Completed Universit y of Vaccine 00:00:00 [facility] [place] Influenza Virus 2011-09-01 Completed Universit y of Vaccine 00:00:00 [facility] [place] Influenza Virus 2011-09-01 Completed Universit y of Vaccine 00:00:00 [facility] [place] Influenza Virus 2011-09-01 Completed Universit y of Vaccine 00:00:00 [facility] [place] Influenza Virus 2011-09-01 Completed Universit y of Vaccine 00:00:00 [facility] [place] Influenza Virus 2011-09-01 Completed Universit y of Vaccine 00:00:00 [facility] [place] Influenza Virus 2011-09-01 Completed Universit y of Vaccine 00:00:00 [facility] [place] Influenza Virus 2011-09-01 Completed Universit y of Vaccine 00:00:00 [facility] [place] Influenza Virus 2011-09-01 Completed Universit y of Vaccine 00:00:00 [facility] [place] HEPATITIS A 2010-09-25 Completed University of 00:00:00 [facility] [place] Meningococcal 2010-09-25 Completed University of Vaccine 00:00:00 [facility] [place] HEPATITIS A 2010-09-25 Completed University of 00:00:00 [facility] [place] Meningococcal 2010-09-25 Completed University of Vaccine 00:00:00 [facility] [place] HEPATITIS A 2010-09-25 Completed University of 00:00:00 [facility] [place] Meningococcal 2010-09-25 Completed University of Vaccine 00:00:00 [facility] [place] HEPATITIS A 2010-09-25 Completed University of 00:00:00 [facility] [place] Meningococcal 2010-09-25 Completed University of Vaccine 00:00:00 [facility] [place] HEPATITIS A 2010-09-25 Completed University of 00:00:00 [facility] [place] Meningococcal 2010-09-25 Completed University of Vaccine 00:00:00 [facility] [place] HEPATITIS A 2010-09-25 Completed University of 00:00:00 [facility] [place] Meningococcal 2010-09-25 Completed University of Vaccine 00:00:00 [facility] [place] HEPATITIS A 2010-09-25 Completed University of 00:00:00 [facility] [place] Meningococcal 2010-09-25 Completed University of Vaccine 00:00:00 [facility] [place] HEPATITIS A 2010-09-25 Completed University of 00:00:00 [facility] [place] Meningococcal 2010-09-25 Completed University of Vaccine 00:00:00 [facility] [place] PPD (TB) 2010-01-14 Completed University of 00:00:00 [facility] [place] Influenza Virus 2010-01-14 Completed Universit y of Vaccine 00:00:00 [facility] [place] PPD (TB) 2010-01-14 Completed University of 00:00:00 [facility] [place] Influenza Virus 2010-01-14 Completed Universit y of Vaccine 00:00:00 [facility] [place] PPD (TB) 2010-01-14 Completed University of 00:00:00 [facility] [place] Influenza Virus 2010-01-14 Completed Universit y of Vaccine 00:00:00 [facility] [place] PPD (TB) 2010-01-14 Completed University of 00:00:00 [facility] [place] Influenza Virus 2010-01-14 Completed Universit y of Vaccine 00:00:00 [facility] [place] PPD (TB) 2010-01-14 Completed University of 00:00:00 [facility] [place] Influenza Virus 2010-01-14 Completed Universit y of Vaccine 00:00:00 [facility] [place] PPD (TB) 2010-01-14 Completed University of 00:00:00 [facility] [place] Influenza Virus 2010-01-14 Completed Universit y of Vaccine 00:00:00 [facility] [place] PPD (TB) 2010-01-14 Completed University of 00:00:00 [facility] [place] Influenza Virus 2010-01-14 Completed Universit y of Vaccine 00:00:00 [facility] [place] PPD (TB) 2010-01-14 Completed University of 00:00:00 [facility] [place] Influenza Virus 2010-01-14 Completed Universit y of Vaccine 00:00:00 [facility] [place] HEPATITIS A 2009-07-15 Completed University of 00:00:00 [facility] [place] Varicella 2009-07-15 Completed University of (varivax)(chicken 00:00:00 [place] M edical pox) Branch HEPATITIS A 2009-07-15 Completed University of 00:00:00 [facility] [place] Varicella 2009-07-15 Completed University of (varivax)(chicken 00:00:00 [place] M edical pox) Branch HEPATITIS A 2009-07-15 Completed University of 00:00:00 [facility] [place] Varicella 2009-07-15 Completed University of (varivax)(chicken 00:00:00 [place] M edical pox) Branch HEPATITIS A 2009-07-15 Completed University of 00:00:00 [facility] [place] Varicella 2009-07-15 Completed University of (varivax)(chicken 00:00:00 [place] M edical pox) Branch HEPATITIS A 2009-07-15 Completed University of 00:00:00 [facility] [place] Varicella 2009-07-15 Completed University of (varivax)(chicken 00:00:00 [place] M edical pox) Branch HEPATITIS A 2009-07-15 Completed University of 00:00:00 [facility] [place] Varicella 2009-07-15 Completed University of (varivax)(chicken 00:00:00 [place] M edical pox) Branch HEPATITIS A 2009-07-15 Completed University of 00:00:00 [facility] [place] Varicella 2009-07-15 Completed University of (varivax)(chicken 00:00:00 [place] M edical pox) Branch HEPATITIS A 2009-07-15 Completed University of 00:00:00 [facility] [place] Varicella 2009-07-15 Completed University of (varivax)(chicken 00:00:00 [place] M edical pox) Branch H1n1 Vaccine 2009-03-29 Completed University o f 00:00:00 [facility] [place] H1n1 Vaccine 2009-03-29 Completed University o f 00:00:00 [facility] [place] H1n1 Vaccine 2009-03-29 Completed University o f 00:00:00 [facility] [place] H1n1 Vaccine 2009-03-29 Completed University o f 00:00:00 [facility] [place] H1n1 Vaccine 2009-03-29 Completed University o f 00:00:00 [facility] [place] H1n1 Vaccine 2009-03-29 Completed University o f 00:00:00 [facility] [place] H1n1 Vaccine 2009-03-29 Completed University o f 00:00:00 [facility] [place] H1n1 Vaccine 2009-03-29 Completed University o f 00:00:00 [facility] [place] DTAP 2003-05-23 Completed University of 00:00:00 [facility] [place] MMR 2003-05-23 Completed University of 00:00:00 [facility] [place] Polio (IPV/OPV) 2003-05-23 Completed Universit y of 00:00:00 [facility] [place] DTAP 2003-05-23 Completed University of 00:00:00 [facility] [place] MMR 2003-05-23 Completed University of 00:00:00 [facility] [place] Polio (IPV/OPV) 2003-05-23 Completed Universit y of 00:00:00 [facility] [place] DTAP 2003-05-23 Completed University of 00:00:00 [facility] [place] MMR 2003-05-23 Completed University of 00:00:00 [facility] [place] Polio (IPV/OPV) 2003-05-23 Completed Universit y of 00:00:00 [facility] [place] DTAP 2003-05-23 Completed University of 00:00:00 [facility] [place] MMR 2003-05-23 Completed University of 00:00:00 [facility] [place] Polio (IPV/OPV) 2003-05-23 Completed Universit y of 00:00:00 [facility] [place] DTAP 2003-05-23 Completed University of 00:00:00 [facility] MMR 2003-05-23 Completed University of 00:00:00 [facility] Polio (IPV/OPV) 2003-05-23 Completed Universit y of 00:00:00 [facility] DTAP 2003-05-23 Completed University of 00:00:00 [facility] MMR 2003-05-23 Completed University of 00:00:00 [facility] Polio (IPV/OPV) 2003-05-23 Completed Universit y of 00:00:00 [facility] DTAP 2003-05-23 Completed University of 00:00:00 [facility] MMR 2003-05-23 Completed University of 00:00:00 [facility] Polio (IPV/OPV) 2003-05-23 Completed Universit y of 00:00:00 [facility] DTAP 2003-05-23 Completed University of 00:00:00 [facility] MMR 2003-05-23 Completed University of 00:00:00 [facility] Polio (IPV/OPV) 2003-05-23 Completed Universit y of 00:00:00 [facility] DTAP 2001-07-25 Completed University of 00:00:00 [facility] HIB 4 Dose Schedule 2001-07-25 Completed Unive rsity of 00:00:00 [facility] DTAP 2001-07-25 Completed University of 00:00:00 [facility] HIB 4 Dose Schedule 2001-07-25 Completed Unive rsity of 00:00:00 [facility] DTAP 2001-07-25 Completed University of 00:00:00 [facility] HIB 4 Dose Schedule 2001-07-25 Completed Unive rsity of 00:00:00 [facility] DTAP 2001-07-25 Completed University of 00:00:00 [facility] HIB 4 Dose Schedule 2001-07-25 Completed Unive rsity of 00:00:00 [facility] DTAP 2001-07-25 Completed University of 00:00:00 [facility] HIB 4 Dose Schedule 2001-07-25 Completed Unive rsity of 00:00:00 [facility] DTAP 2001-07-25 Completed University of 00:00:00 [facility] HIB 4 Dose Schedule 2001-07-25 Completed Unive rsity of 00:00:00 [facility] DTAP 2001-07-25 Completed University of 00:00:00 [facility] HIB 4 Dose Schedule 2001-07-25 Completed Unive rsity of 00:00:00 [facility] DTAP 2001-07-25 Completed University of 00:00:00 [facility] HIB 4 Dose Schedule 2001-07-25 Completed Unive rsity of 00:00:00 [facility] DTAP 2000-03-30 Completed University of 00:00:00 [facility] HIB 4 Dose Schedule 2000-03-30 Completed Unive rsity of 00:00:00 [facility] Hep B, Adol or Pedi 2000-03-30 Completed Unive rsity of Dosage 00:00:00 [facility] MMR 2000-03-30 Completed University of 00:00:00 [facility] Polio (IPV/OPV) 2000-03-30 Completed Universit y of 00:00:00 [facility] Varicella 2000-03-30 Completed University of (varivax)(chicken 00:00:00 [place] [facility] pox) [facility] DTAP 2000-03-30 Completed University of 00:00:00 [facility] HIB 4 Dose Schedule 2000-03-30 Completed Unive rsity of 00:00:00 [facility] Hep B, Adol or Pedi 2000-03-30 Completed Unive rsity of Dosage 00:00:00 [facility] MMR 2000-03-30 Completed University of 00:00:00 [facility] Polio (IPV/OPV) 2000-03-30 Completed Universit y of 00:00:00 [facility] Varicella 2000-03-30 Completed University of (varivax)(chicken 00:00:00 [facility] edical pox) Branch DTAP 2000-03-30 Completed University of 00:00:00 [facility] HIB 4 Dose Schedule 2000-03-30 Completed Unive rsity of 00:00:00 [facility] Hep B, Adol or Pedi 2000-03-30 Completed Unive rsity of Dosage 00:00:00 [facility] MMR 2000-03-30 Completed University of 00:00:00 [facility] Polio (IPV/OPV) 2000-03-30 Completed Universit y of 00:00:00 [facility] Varicella 2000-03-30 Completed University of (varivax)(chicken 00:00:00 [place] [facility]ox[facility] DTAP 2000-03-30 Completed University of 00:00:00 [facility] HIB 4 Dose Schedule 2000-03-30 Completed Unive rsity of 00:00:00 [facility] Hep B, Adol or Pedi 2000-03-30 Completed Unive rsity of Dosage 00:00:00 [facility] MMR 2000-03-30 Completed University of 00:00:00 [facility] Polio (IPV/OPV) 2000-03-30 Completed Universit y of 00:00:00 [facility] Varicella 2000-03-30 Completed University of (varivax)(chicken 00:00:00 [place] [facility] pox) [facility] DTAP 2000-03-30 Completed University of 00:00:00 [facility] HIB 4 Dose Schedule 2000-03-30 Completed Unive rsity of 00:00:00 [facility] Hep B, Adol or Pedi 2000-03-30 Completed Unive rsity of Dosage 00:00:00 [facility] MMR 2000-03-30 Completed University of 00:00:00 [facility] Polio (IPV/OPV) 2000-03-30 Completed Universit y of 00:00:00 [facility] Varicella 2000-03-30 Completed University of (varivax)(chicken 00:00:00 [place] [facility] pox) [facility] DTAP 2000-03-30 Completed University of 00:00:00 [facility] HIB 4 Dose Schedule 2000-03-30 Completed Unive rsity of 00:00:00 [facility] Hep B, Adol or Pedi 2000-03-30 Completed Unive rsity of Dosage 00:00:00 [facility] MMR 2000-03-30 Completed University of 00:00:00 [facility] Polio (IPV/OPV) 2000-03-30 Completed Universit y of 00:00:00 [facility] Varicella 2000-03-30 Completed University of (varivax)(chicken 00:00:00 [place] [facility] pox) [facility] DTAP 2000-03-30 Completed University of 00:00:00 [facility] HIB 4 Dose Schedule 2000-03-30 Completed Unive rsity of 00:00:00 [facility] Hep B, Adol or Pedi 2000-03-30 Completed Unive rsity of Dosage 00:00:00 [facility] MMR 2000-03-30 Completed University of 00:00:00 [facility] Polio (IPV/OPV) 2000-03-30 Completed Universit y of 00:00:00 [facility] Varicella 2000-03-30 Completed University of (varivax)(chicken 00:00:00 [place] [facility] pox) [facility] DTAP 2000-03-30 Completed University of 00:00:00 [facility] HIB 4 Dose Schedule 2000-03-30 Completed Unive rsity of 00:00:00 [facility] Hep B, Adol or Pedi 2000-03-30 Completed Unive rsity of Dosage 00:00:00 [facility] MMR 2000-03-30 Completed University of 00:00:00 [facility] Polio (IPV/OPV) 2000-03-30 Completed Universit y of 00:00:00 [facility] Varicella 2000-03-30 Completed University of (varivax)(chicken 00:00:00 [place] [facility] pox) [facility] DTAP 1999 Completed University of 00:00:00 [facility] HIB 4 Dose Schedule 1999 Completed Unive rsity of 00:00:00 [facility] Polio (IPV/OPV) 1999 Completed Universit y of 00:00:00 [facility] DTAP 1999 Completed University of 00:00:00 [facility] HIB 4 Dose Schedule 1999 Completed Unive rsity of 00:00:00 [facility] Polio (IPV/OPV) 1999 Completed Universit y of 00:00:00 [facility] DTAP 1999 Completed University of 00:00:00 [facility] HIB 4 Dose Schedule 1999 Completed Unive rsity of 00:00:00 [facility] Polio (IPV/OPV) 1999 Completed Universit y of 00:00:00 [facility] DTAP 1999 Completed University of 00:00:00 [facility] HIB 4 Dose Schedule 1999 Completed Unive rsity of 00:00:00 [facility] Polio (IPV/OPV) 1999 Completed Universit y of 00:00:00 [facility] DTAP 1999 Completed University of 00:00:00 [place] [facility] HIB 4 Dose Schedule 1999 Completed Unive rsity of 00:00:00 [place] [facility] Polio (IPV/OPV) 1999 Completed Universit y of 00:00:00 [place] [facility] DTAP 1999 Completed University of 00:00:00 [facility] HIB 4 Dose Schedule 1999 Completed Unive rsity of 00:00:00 [facility] Polio (IPV/OPV) 1999 Completed Universit y of 00:00:00 [place] [facility] DTAP 1999 Completed University of 00:00:00 [facility] HIB 4 Dose Schedule 1999 Completed Unive rsity of 00:00:00 [place] [facility] Polio (IPV/OPV) 1999 Completed Universit y of 00:00:00 [facility] DTAP 1999 Completed University of 00:00:00 [facility] HIB 4 Dose Schedule 1999 Completed Unive rsity of 00:00:00 [facility] Polio (IPV/OPV) 1999 Completed Universit y of 00:00:00 [facility] HIB 4 Dose Schedule 1999 Completed Unive rsity of 00:00:00 [facility] Polio (IPV/OPV) 1999 Completed Universit y of 00:00:00 [facility] HIB 4 Dose Schedule 1999 Completed Unive rsity of 00:00:00 [facility] Polio (IPV/OPV) 1999 Completed Universit y of 00:00:00 [facility] HIB 4 Dose Schedule 1999 Completed Unive rsity of 00:00:00 [facility] Polio (IPV/OPV) 1999 Completed Universit y of 00:00:00 [facility] HIB 4 Dose Schedule 1999 Completed Unive rsity of 00:00:00 [facility] Polio (IPV/OPV) 1999 Completed Universit y of 00:00:00 [facility] HIB 4 Dose Schedule 1999 Completed Unive rsity of 00:00:00 [place] [facility] Polio (IPV/OPV) 1999 Completed Universit y of 00:00:00 [facility] HIB 4 Dose Schedule 1999 Completed Unive rsity of 00:00:00 [place] [facility] Polio (IPV/OPV) 1999 Completed Universit y of 00:00:00 [place] [facility] HIB 4 Dose Schedule 1999 Completed Unive rsity of 00:00:00 [place] [facility] Polio (IPV/OPV) 1999 Completed Universit y of 00:00:00 [facility] HIB 4 Dose Schedule 1999 Completed Unive rsity of 00:00:00 [facility] Polio (IPV/OPV) 1999 Completed Universit y of 00:00:00 [facility] DTAP 1999 Completed University of 00:00:00 [facility] Hep B, Adol or Pedi 1999 Completed Unive rsity of Dosage 00:00:00 [facility] DTAP 1999 Completed University of 00:00:00 [facility] Hep B, Adol or Pedi 1999 Completed Unive rsity of Dosage 00:00:00 [facility] DTAP 1999 Completed University of 00:00:00 [place] [facility] Hep B, Adol or Pedi 1999 Completed Unive rsity of Dosage 00:00:00 [facility] DTAP 1999 Completed University of 00:00:00 [facility] Hep B, Adol or Pedi 1999 Completed Unive rsity of Dosage 00:00:00 [facility] DTAP 1999 Completed University of 00:00:00 [place] [facility] Hep B, Adol or Pedi 1999 Completed Unive rsity of Dosage 00:00:00 [facility] DTAP 1999 Completed University of 00:00:00 [place] [facility] Hep B, Adol or Pedi 1999 Completed Unive rsity of Dosage 00:00:00 [facility] DTAP 1999 Completed University of 00:00:00 [facility] Hep B, Adol or Pedi 1999 Completed Unive rsity of Dosage 00:00:00 [facility] DTAP 1999 Completed University of 00:00:00 [place] [facility] Hep B, Adol or Pedi 1999 Completed Unive rsity of Dosage 00:00:00 [place] [facility] Hep B, Adol or Pedi 1999 Completed Unive rsity of Dosage 00:00:00 [place] [facility] Hep B, Adol or Pedi 1999 Completed Unive rsity of Dosage 00:00:00 [facility] Hep B, Adol or Pedi 1999 Completed Unive rsity of Dosage 00:00:00 [place] [facility] Hep B, Adol or Pedi 1999 Completed Unive rsity of Dosage 00:00:00 [place] [facility] Hep B, Adol or Pedi 1999 Completed Unive rsity of Dosage 00:00:00 [place] [facility] Hep B, Adol or Pedi 1999 Completed Unive rsity of Dosage 00:00:00 [facility] Hep B, Adol or Pedi 1999 Completed Unive rsity of Dosage 00:00:00 [facility] Hep B, Adol or Pedi 1999 Completed Unive rsity of Dosage 00:00:00 [facility] Vital Signs Vital Name Observation Time Observation Value Comments Source Systolic blood 2022-04-16 16:22:00 110 mm[Hg] Univer sity of pressure [facility] Diastolic blood 2022-04-16 16:22:00 60 mm[Hg] Unive rsity of pressure [facility] Heart rate 2022-04-16 16:22:00 96 /min [facility] Body temperature 2022-04-16 16:22:00 37.06 Evy [facility] Respiratory rate 2022-04-16 16:22:00 18 /min [facility] Body height 2022-04-16 16:22:00 157.5 cm [facility] Body weight 2022-04-16 16:22:00 80.485 kg [facility] BMI 2022-04-16 16:22:00 32.45 kg/m2 [facility] Systolic blood 2021-11-03 14:03:00 110 mm[Hg] Univer sity of pressure [facility] Diastolic blood 2021-11-03 14:03:00 63 mm[Hg] Unive rsity of pressure [facility] Heart rate 2021-11-03 14:03:00 108 /min [facility] Body temperature 2021-11-03 14:03:00 36 [facility] Respiratory rate 2021-11-03 14:03:00 18 /min [facility] Body height 2021-11-03 14:03:00 157.5 cm [facility] Body weight 2021-11-03 14:03:00 76.658 kg [facility] BMI 2021-11-03 14:03:00 30.91 kg/m2 [facility] Procedures Procedure Date / Time Performed Performing Clinician Sour e REPORT OF 2022-04-16 06:01:00 [facility] 2022-04-16 00:00:00 Meme Trejo [facility] POCT TEST 2022-04-16 00:00:00 Meme Trejo [facility] Encounters Start End Encounter Admission Attending Care Care Encounter Source Date/Time Date/Time Type Type Clinicians Facility Department ID 2022-06-08 2022-06-08 Outpatient Pal MITCHELL [facility] [id number] Univers 10:00:00 10:00:00 SHAYNE [facility] 2022-05-28 2022-05-28 Outpatient Dami CASTELLON [facility] [id number] Univers 14:00:00 14:00:00 YUMIKO [facility] 2022-05-14 2022-05-14 Outpatient R CANDE [facility] [id number] Univers 10:45:00 10:45:00 [facility] 2022-04-29 2022-04-29 Outpatient R [facility] [id number] Univers 14:30:00 14:30:00 [facility] 2022-04-21 2022-04-21 [facility] [id number] [id number] Univers 00:00:00 00:00:00 Management Yumiko Morrison SHAREPOINT ANALYST [id number] ity of REGIONAL [id number] Reginald as MATERNAL [phone] [facility] CH[facility] [address] [place] [address] 2022-04-20 2022-04-20 Telephone Cande [facility] [id number] Univers 00:00:00 00:00:00 Yumiko Morrison SHAREPOINT ANALYST [id number] i ty of REGIONAL [id number] [place] as MATERNAL [phone] [facility] CH[facility] [address] [place] [address] 2022-04-16 2022-04-16 Outpatient R NEIL [facility] [id number] Univers 10:45:00 11:08:07 MEME alonso [facility] 2022-04-16 2022-04-16 Meme Tripp [facility] 1.2.8 [id number] Univers 10:45:00 11:08:07 Kimberly Castellonnda Tamiko SHAREPOINT ANALYST [id number]. 10 ity of Visit [facility] [id number] Reg[place]d as MATERNAL [phone] [facility] & CHILD [address] [place] [address] 2022-04-16 2022-04-16 Orders Doctor JOANNE [id number] Univers 00:00:00 00:00:00 Only Unassigned, GIANNI [id number] ity of [place] [facility] [id number] Reginald as [id number] [address] 2021-12-24 2021-12-24 Outpatient R CHERRY [facility] [id number] Univers 09:45:00 09:45:00 CHELO moseley o f [facility] 2021-11-12 2021-11-12 Outpatient R NEIL [facility] [id number] Univers 13:00:00 13:00:00 MEME moseley o f [facility] 2021-11-07 2021-11-07 Outpatient P [facility] [id number] Univers 13:00:00 13:00:00 ity of [facility] 2021-11-03 2021-11-03 Routine Trimester, [facility] Res-1st UNIVERSIT 1.2.840.114 [id number] Univers 08:45:00 10:55:43 Yvette Leiva [facility] [id number] ity of [id number] [id number] [address] 2021-11-03 2021-11-03 [facility] [id number] Univers 08:45:00 10:55:43 [facility] 2021-11-03 2021-11-03 Outpatient Dami LEIVA [facility] [id number] Univers 08:45:00 08:45:00 [facility] 2021-10-31 2021-10-31 Routine Trimester, [facility] Res-1st UNIVERSIT 1.2.840.114 [id number] Univers 09:00:00 09:15:00 Yvette Leiva [facility] [id number] ity [place] [id number] [address] 2021-10-31 2021-10-31 [facility]patient [facility] [id number] Univers 09:00:00 09:00:00 [facility] 2021-10-29 2021-10-29 Outpatient R NEIL, [facility] [id number] Univers 11:00:00 11:42:46 MEME moseley o f [facility] 2021-10-29 2021-10-29 Routine [facility] [id number] Univers 11:00:00 11:42:46 Meme Guy SHAREPOINT ANALYST [id number] ity of Visit REGIONAL [id number] Reginald as MATERNAL [id number] [facility] ical & CHILD [address] [place] [address] 2021-10-27 2021-10-27 Emergency X GIAN [facility] ERT [id number] Univers 12:58:00 16:35:00 NATALIYA [facility] 2021-10-27 2021-10-27 [facility] 1.2.840.114 [id number] Univers 12:58:00 16:35:00 Nataliya GONCALVES 350.1.13.10 ity [facility] 4.2.7.2.686 [facility] [id number] [address] 2021-10-27 2021-10-27 Emergency [facility] [id number] Univers 12:58:00 16:35:00 NATALIYA itmichelle [facility] 2021-10-27 2021-10-27 [facility] 1.2.840.114 [id number] Univers 00:00:00 00:00:00 Meme Malena SHAREPOINT ANALYST [id number] ity of [facility] [id number] Reginald as MATERNAL [id number] [facility] ical & CHILD [address] [place] [address] 2021-10-10 2021-10-10 Outpatient R AKINSIPE, [facility] [id number] Univers 14:45:00 14:45:00 MEME ity o [facility] 2021-10-10 2021-10-10 Outpatient R AKINSIPE, [facility] [id number] Univers 14:45:00 14:45:00 MEME ity o [facility] 2021-10-09 2021-10-09 Outpatient R AKINSIPE, [facility] [id number] Univers 13:45:00 13:45:00 MEME ity o [facility] 2021-10-03 2021-10-03 Routine Akinsipe, [facility] [id number] Univers 16:00:00 16:15:00 Meme C SHAREPOINT ANALYST [id number] ity of [facility] [id number] Reginald as MATERNAL [id number] [facility] ical & CHILD [address] [place] [address] 2021-10-03 2021-10-03 Outpatient R AKINSIPE, [facility] [id number] Univers 16:00:00 16:00:00 MEME ity o [facility] 2021-10-03 2021-10-03 Outpatient R AKINSIPE, [facility] [id number] Univers 16:00:00 16:00:00 MEME ity o f [facility] 2021-09-09 2021-09-10 Emergency X Bryan BAUER [facility] ERT [id number] Univers 23:48:00 01:57:00 ity of [facility] 2021-09-09 2021-09-10 Emergency Bryan Bauer [facility] 1.2.840.114 [id number] Univers 23:48:00 01:57:00 Mckayla ARVADA 350.1.13.10 i ty [facility] 4.2.7.2.686 [facility] [id number] [address] 2021-09-05 2021-09-05 Initial Akincuatepe, [facility] [id number] Univers 14:15:00 15:20:42 Meme C SHAREPOINT ANALYST [id number] ity of Visit REGIONAL [id number] Reginald as MATERNAL [id number] Med ical & CHILD [address] [place] [address] 2021-09-05 2021-09-05 Outpatient R AKINSIPE, [facility] [id number] Univers 14:15:00 15:20:42 MEME ity o f [facility] 2021-09-05 2021-09-05 Outpatient R AKINSIPE, [facility] [id number] Univers 14:15:00 14:15:00 MEME ity o [facility] 2021-09-05 2021-09-05 Outpatient R AKINSIPE, [facility] [id number] Univers 13:45:00 14:11:27 MEME ity o [facility] 2021-09-04 2021-09-04 [facility]phone [facility] 1.2.840.114 [id number] Univers 00:00:00 00:00:00 Meme C SHAREPOINT ANALYST [id number] ity of REGIONAL [id number] Reginald as MATERNAL [id number] [facility] ical & CHILD [address] [place] [address] 2021-08-25 2021-08-25 Telephone [facility] 1.2.840.114 [id number] Univers 00:00:00 00:00:00 Meme C SHAREPOINT ANALYST [id number] ity of [facility] [id number] Reginald as MATERNAL [id number] [address] 2021-08-22 2021-08-22 Office [facility] [id number] Univers 08:00:00 09:01:20 Visit Meme C SHAREPOINT ANALYST [id number] ity of [facility] [id number] Reg[place]d as MATERNAL [id number] [address] 2021-08-22 2021-08-22 Outpatient R LEVINDALE [facility] [id number] Univers 08:00:00 09:01:20 MEME moseley o [facility] 2021-08-22 2021-08-22 [facility] [id number] Univers 08:00:00 08:00:00 MEME pradip o f [facility] 2021-08-22 2021-08-22 Orders Doctor JOANNE 1.2.840.114 [id number] Univers 00:00:00 00:00:00 Only Unassigned, GIANNI 350.1.13.10 ity of [place] [facility] [id number] Reginald as [id number] [address] 2021-08-22 2021-08-22 Letter [facility] [id number] Univers 00:00:00 00:00:00 (Out) Meme C SHAREPOINT ANALYST [id number] ity of [facility] [id number] Reginald as MATERNAL [id number] [address] 2021-08-13 2021-08-13 Emergency X SINGER [facility] ERT [id number] Univers 10:28:00 11:01:00 JENNI moseley [facility] 2021-08-13 2021-08-13 Emergency Singer [facility] [id number] Univers 10:28:00 11:01:00 Jenni GONCALVES [id number] i ty of [place]7.2.[place] [id number] [facility] [address] Branch 2021-08-13 2021-08-13 Orders Doctor JOANNE 1.2.840.114 [id number] Univers 00:00:00 00:00:00 Only Unassigned, GIANNI [id number] ity of [place] [facility] 4.2.7.2.686 Reginald as [phone] [facility] [address] 2020-11-25 2020-11-25 Outpatient R [facility] [id number] Univers 09:00:00 09:00:00 ity of [facility] 2020-11-22 2020-11-22 Telemedici Trimester, [facility] Res-1s t UNIVERSIT 1.2.840.114 [id number] Univers 10:45:00 11:00:00 ne Visit Shayne Mitchell [facility] 350.1.13.10 ity of [place] Vill[place] [facility] 4.2.7.2.686 [place] [phone] [facility] [address] 2020-11-22 2020-11-22 Outpatient R CORETTA [facility] [id number] Univers 10:45:00 10:45:00 SHAYNE itmichelle [facility] 2020-11-08 2020-11-08 Routine Trimester, [facility] Res-1st UNIVERSIT 1.2.840.114 [id number] Univers 10:00:57 10:35:05 Allen Villalta [facility] 350.1.13.10 ity of Visit CLINICS 4.2.7.2.686 [facility] [phone] [facility] [address] 2020-11-08 2020-11-08 Outpatient R [facility] [id number] Univers 10:00:00 10:00:00 ity of [facility] 2020-11-06 2020-11-06 Outpatient R CHERRY [facility] [id number] Univers 16:45:00 16:45:00 CHELO moseley o f [facility] 2020-11-062020-11-06 [facility] [id number] Univers 00:00:00 00:00:00 Aichanda R SHAREPOINT ANALYST 350.1.13.10 ity of REGIONAL 4.2.7.2.686 [place] as MATERNAL [phone] [facility] [address] [place] [address] 2020-11-05 2020-11-05 Office [facility] 1.2.840.114 [id number] Univers 15:59:30 16:27:56 Visit Chelo R SHAREPOINT ANALYST 350.1.13.10 ity of REGIONAL 4.2.7.2.686 [place] MATERNAL [phone] [address] 2020-11-05 2020-11-05 Outpatient [facility] [id number] Univers 16:00:00 16:00:00 CHELO moseley o gavin [facility] 2020-11-05 2020-11-05 [facility]phone [facility] [id number] Univers 00:00:00 00:00:00 Chelo R SHAREPOINT ANALYST 350.1.13.10 ity of REGIONAL 4.2.7.2.686 [place] as MATERNAL [phone] [address] 2020-10-29 2020-10-29 Outpatient Dami [facility] [id number] Univers 16:30:00 16:30:00 DIPAKTamiko moseley o gavin [facility] 2020-10-21 2020-10-21 Outpatient Dami [facility] [id number] Univers 15:30:00 15:30:00 AICHANDA ity o gavin [facility] 2020-10-18 2020-10-18 Business Editor Lab, Mike-Rmchp [facility] 1.2.840. 114 [id number] Univers 15:09:36 15:26:25 Visit Daisha Careyfred R SHAREPOINT ANALYST 350.1.13.10 ity of REGIONAL 4.2.7.2.686 [place] MATERNAL [phone] [facility] [address] [place] [address] 2020-10-18 2020-10-18 Outpatient R [facility] [id number] Univers 15:15:00 15:15:00 AICHANDA ity o f [facility] 2020-10-18 2020-10-18 [facility] [id number] Univers 00:00:00 00:00:00 Chelo R SHAREPOINT ANALYST 350.1.13.10 ity of REGIONAL 4.2.7.2.686 [place] as MATERNAL [id number] [facility] ical & CHILD [address] [place] [address] 2020-10-14 2020-10-14 Outpatient R [facility] [id number] Univers 10:45:00 10:45:00 ity of [facility] 2020-10-11 2020-10-11 Orders Doctor RUBIO 1.2.840.114 [id number] Univers 00:00:00 00:00:00 Only Unassigned, GIANNI 350.1.13.10 ity of [facility] 4.2.7.2.686 [place]d as [phone] [facility] [address] [place] 2020-10-11 2020-10-11 Telephone [facility] [id number] Univers 00:00:00 00:00:00 Chelo R SHAREPOINT ANALYST 350.1.13.10 ity of REGIONAL 4.2.7.2.686 [place]d as MATERNAL [phone] [facility] ical & CHILD [address] [place] [address] 2020-10-01 2020-10-01 Routine Trimester, [facility] Res-1st UNIVERSIT 1.2.840.114 [id number] Univers 09:29:23 11:47:08 Allen Villalta [facility] 350.1.13.10 ity of Visit CLINICS 4.[place].7.2.[place] [phone] [facility] [address] [place] 2020-10-01 2020-10-01 Outpatient R [facility] [id number] Univers 09:30:00 09:30:00 ity of [facility] 2020-10-01 2020-10-01 Orders Doctor RUBIO 1.2.840.114 [id number] Univers 00:00:00 00:00:00 Only Unassigned, GIANNI 350.1.13.10 ity of [place] [facility] 4.2.7.2.686 [place] as [phone] [address] 2020-09-30 2020-09-30 Routine LOUIS Carey 1.2.840.114 [id number] Univers 09:48:35 10:19:37 Rosenanda R SHAREPOINT ANALYST 350.1.13.10 ity of Visit REGIONAL 4.2.7.2.686 [place] as MATERNAL [phone] Med ical & CHILD [address] [place] [address] 2020-09-30 2020-09-30 Business Editor Ultrasound, Oliverjulius [facility] 1.2 .840.114 [id number] Univers 09:24:35 09:48:43 Visit Meme Trejo SHAREPOINT ANALYST 350.1.13. 10 ity of Hernan Mckeon [facility] 4.2.7.2.686 [place] MATERNAL [phone] [facility] ical & CHILD [address] [place] [address] 2020-09-30 2020-09-30 Business Editor Lab, OliverRmchp [facility] 1.2.840. 114 [id number] Univers 08:47:58 09:02:58 Visit Meme Trejo SHAREPOINT ANALYST 350.1.13. 10 ity of REGIONAL 4.2.7.2.686 [place] as MATERNAL [phone] [facility] ical & CHILD [address] [place] [address] 2020-09-30 2020-09-30 Outpatient R [facility] [id number] Univers 08:30:00 08:30:00 ity of [facility] 2020-09-30 2020-09-30 Telephone Cherry VANAA [id number] Univers 00:00:00 00:00:00 Chelo R SHAREPOINT ANALYST 350.1.13.10 ity of [facility] 4.2.7.2.686 [place] as MATERNAL [phone] Med ical & CHILD [address] [place] [address] 2020-09-25 2020-09-25 Telephone Cherry VANAA 1.2.759.121 [id number] Univers 00:00:00 00:00:00 Daishafranka R SHAREPOINT ANALYST 350.1.13.10 ity of REGIONAL 4.2.7.2.686 [place] as MATERNAL [phone] [facility] & CHILD [address] [place] [address] 2020-09-23 2020-09-23 Initial Cherry [facility] 1.2.840.114 [id number] Univers 14:13:53 15:44:35 Dipaka R SHAREPOINT ANALYST 350.1.13.10 ity of Visit REGIONAL 4.2.7.2.686 [place] as MATERNAL [phone] [facility] & [address] 2020-09-23 2020-09-23 Outpatient [facility] [id number] Univers 14:00:00 14:00:00 CHELO moseley o f [facility] 2020-09-23 2020-09-23 Orders Doctor JOANNE 1.2.840.114 [id number] Univers 00:00:00 00:00:00 Only Unassigned, GIANNI 350.1.13.10 ity of [place] [facility] 4.2.7.2.686 [place] as [phone] [address] 2020-07-30 2020-07-30 Patient Eitan [facility] 1.2.840.114 [id number] Univers 00:00:00 00:00:00 Outreach Trey [facility] 350.1.13.10 i ty of [facility] [place].2.7.2.[place] [id number] [address] 2020-04-25 2020-04-25 Outpatient [facility] [id number] Univers 16:00:00 16:00:00 ity of [facility] 2020-02-28 2020-02-28 Outpatient R [facility] [id number] Univers 13:30:00 13:30:00 ity of [facility] 2019-11-28 2019-11-28 Nurse Visit, [facility] 1.2.840.114 [id number] 16:05:10 16:35:57 Visit [facility] SHAREPOINT ANALYST 350.1.13.10 Nurse REGIONAL 4.2.7.2.686 MATERNAL [phone] & CHILD [address] [place] [address] 2019-11-28 2019-11-28 Nurse Visit, Ang-Rmchp Nurse [facility] 1.2 .840.114 [id number] Univers 16:05:10 16:35:57 Visit Emily Springer SHAREPOINT ANALYST 350.1.13.10 ity of REGIONAL 4.2.7.2.686 [place] as MATERNAL [phone] [facility] [address] [place] [address] 2019-11-28 2019-11-28 Outpatient R GIAN [facility] [id number] Univers 14:00:00 14:00:00 EMILY moseley [facility] 2019-11-27 2019-11-27 [facility]phone [facility] 1.2.840.114 [id number] 00:00:00 00:00:00 Meme C SHAREPOINT ANALYST 350.1.13.10 REGIONAL 4.2.7.2.686 MATERNAL [phone] & CHILD [address] [place] [address] 2019-11-27 2019-11-27 [facility]phone [facility] 1.2.840.114 [id number] Univers 00:00:00 00:00:00 Meme C SHAREPOINT ANALYST 350.1.13.10 ity of REGIONAL 4.2.7.2.686 [place]d as MATERNAL [phone] [facility] & CHILD [address] [place] [address] 2019-11-24 2019-11-24 Office [facility] 1.2.945.695 [id number] Univers 12:47:22 13:38:45 Visit Meme C SHAREPOINT ANALYST 350.1.13.10 ity of REGIONAL 4.2.7.2.686 [place]d as MATERNAL [phone] [facility] [address] [place] [address] 2019-11-24 2019-11-24 Outpatient R NEIL [facility] [id number] Univers 12:45:00 12:45:00 MEME alonso [facility] 2019-11-24 2019-11-24 [facility]phone [facility] 1.2.840.114 [id number] Univers 00:00:00 00:00:00 Meme C SHAREPOINT ANALYST 350.1.13.10 ity of REGIONAL 4.2.7.2.686 [place] as MATERNAL [phone] [facility] ical & CHILD [address] [place] [address] 2019-11-24 2019-11-24 Orders Doctor JOANNE 1.2.840.114 [id number] Univers 00:00:00 00:00:00 Only Unassigned, GIANNI 350.1.13.10 ity of [facility] 4.2.7.2.686 [place] as [phone] [address] 2019-11-24 2019-11-24 Letter [facility] 1.2.495.204 [id number] Univers 00:00:00 00:00:00 (Out) Meme Guy SHAREPOINT ANALYST 350.1.13.10 ity of REGIONAL 4.2.7.2.686 [place] as MATERNAL [phone] [facility] & CHILD [address] [place] [address] 2019-11-09 2019-11-09 Outpatient Dami JUDD [facility] [id number] Univers 16:20:00 16:20:00 RIK ity of [facility] 2019-01-25 2019-01-26 [facility] 1.2.840.114 [id number] Univers 09:10:00 20:45:00 Encounter Grzegorz Bradley 350.1.13.10 ity of [place].7.2.[place] [phone] [place] [address] [place] 2019-01-25 2019-01-25 Orders Doctor JOANNE 1.2.840.114 [id number] Univers 00:00:00 00:00:00 Only Unassigned, GIANNI 350.1.13.10 ity of [facility] 4.2.7.2.686 [place] as [phone] [address] 2019-01-18 2019-01-18 Routine [facility] 1.2.798.055 [id number] Univers 13:13:34 14:03:06 Meme C SHAREPOINT ANALYST 350.1.13.10 ity of Visit REGIONAL 4.2.7.2.686 [place]d as MATERNAL [phone] [facility] ical & CHILD [address] [place] [address] 2019-01-11 2019-01-11 Routine Akinsipe, [facility] 1.2.213.088 [id number] Univers 14:56:31 15:42:02 Meme C SHAREPOINT ANALYST 350.1.13.10 ity of Visit REGIONAL 4.2.7.2.686 Reg[place]d as MATERNAL [phone] [facility] ical & CHILD [address] [place] [address] 2019-01-04 2019-01-04 Routine Akinsipe, [facility] 1.2.744.615 [id number] Univers 10:45:17 11:24:54 Meme C SHAREPOINT ANALYST 350.1.13.10 ity of Visit REGIONAL 4.2.7.2.686 Reg[place]d as MATERNAL [phone] [facility] [address] [place] [address] 2018-12-15 2018-12-15 Routine Akinsipe, [facility] 1.2.760.485 [id number] Univers 13:22:12 13:41:21 Meme C SHAREPOINT ANALYST 350.1.13.10 ity of Visit REGIONAL 4.2.7.2.686 Reginald as MATERNAL [phone] [facility] [address] [place] [address] Results Test Description Test Time Test Comments Results Result Comments Source POCT TEST 2022-04-16 16:16:00 Test Item Value Reference Range Interpretation Comme nts POCT PREG (test code = 1605) Positive On board controls acceptable with C Line (test code = 3574) Yes POCT PREG LOT # (test code = 3575) POCT PREG TEST DATE (test code = 3576) [id number] 16:16:00 Test Item Value Reference Range Interpretation Comments POCT PREG (test code = 1605) Positive On board controls acceptable with C Yes Line (test code = 3574) POCT PREG LOT # (test code = 3575) POCT PREG TEST DATE (test code = 3576) [facility] [id number] 16:16:00 Test Item Value Reference Range Interpretation Comments POCT PREG (test code = 1605) Positive On board controls acceptable with C Yes Line (test code = 3574) POCT PREG LOT # (test code = 3575) POCT PREG TEST DATE (test code = 3576) [facility] [id number] 16:16:00 Test Item Value Reference Range Interpretation Comments POCT PREG (test code = 1605) Positive On board controls acceptable with C Yes Line (test code = 3574) POCT PREG LOT # (test code = 3575) POCT PREG TEST DATE (test code = 357) [facility] URINALYSIS W SPECIFIC [id number] 16:13:00 Test Item Value Reference Range Interpretation Comments POCT U SP GRAV (test code = negative 1.005-1.025 3255) POCT PH U (test code = 3254) 5 mg/dl 5-8 POCT U LEUK EST (test code = negtive Negative - Negative 3263) POCT U NIT (test code = 3262) negative Negative - Negative POCT U PROT (test code = 3259) trace Negative - Negative POCT U GLU (test code = 3256) negative Negative - Negative POCT U KETONE (test code = 3258) negative Negative - Negative POCT U UROBILI (test code = negative 0.2-1 3260) POCT U BILI (test code = 3261) negative Negative - Negative POCT U BLD (test code = 3257) negative Negative - Negative POCT U COLOR (test code = 3266) yellow POCT U APPEAR (test code = 3267) . [facility] URINALYSIS W SPECIFIC [id number] 16:13:00 Test Item Value Reference Range Interpretation Comments POCT U SP GRAV (test code = negative 1.005-1.025 3255) POCT PH U (test code = 3254) 5 mg/dl 5-8 POCT U LEUK EST (test code = negtive Negative - Negative 3263) POCT U NIT (test code = 3262) negative Negative - Negative POCT U PROT (test code = 3259) trace Negative - Negative POCT U GLU (test code = 3256) negative Negative - Negative POCT U KETONE (test code = 3258) negative Negative - Negative POCT U UROBILI (test code = negative 0.2-1 3260) POCT U BILI (test code = 3261) negative Negative - Negative POCT U BLD (test code = 3257) negative Negative - Negative POCT U COLOR (test code = 3266) yellow POCT U APPEAR (test code = 3267) . [facility] W SPECIFIC [id number] 16:13:00 Test Item Value Reference Range Interpretation Comments POCT U SP GRAV (test code = negative 1.005-1.025 3255) POCT PH U (test code = 3254) 5 mg/dl 5-8 POCT U LEUK EST (test code = negtive Negative - Negative 3263) POCT U NIT (test code = 3262) negative Negative - Negative POCT U PROT (test code = 3259) trace Negative - Negative POCT U GLU (test code = 3256) negative Negative - Negative POCT U KETONE (test code = 3258) negative Negative - Negative POCT U UROBILI (test code = negative 0.2-1 3260) POCT U BILI (test code = 3261) negative Negative - Negative POCT U BLD (test code = 3257) negative Negative - Negative POCT U COLOR (test code = 3266) yellow POCT U APPEAR (test code = 3267) . [facility] W SPECIFIC [id number] 16:13:00 Test Item Value Reference Range Interpretation Comments POCT U SP GRAV (test code = negative 1.005-1.025 3255) POCT PH U (test code = 3254) 5 mg/dl 5-8 POCT U LEUK EST (test code = negtive Negative - Negative 3263) POCT U NIT (test code = 3262) negative Negative - Negative POCT U PROT (test code = 3259) trace Negative - Negative POCT U GLU (test code = 3256) negative Negative - Negative POCT U KETONE (test code = 3258) negative Negative - Negative POCT U UROBILI (test code = negative 0.2-1 3260) POCT U BILI (test code = 3261) negative Negative - Negative POCT U BLD (test code = 3257) negative Negative - Negative POCT U COLOR (test code = 3266) yellow POCT U APPEAR (test code = 3267) . [facility]
--- NOTE | 2022-07-07 10:36 | EDPHYS ---
Physician Documentation [facility] Name: Guillermina Carlson Age: 22 yrs Sex: Female : 2000 Arrival Date: 07/07/2022 Time: 10:00 Bed 12 Private MD: ED Physician Shay Degroot HPI: 07/07 13:39 This 22 yrs old Female presents to ER via Ambulatory with complaints of Ear ms3 Pain, Ankle Injury. 13:39 22-year-old female with no past medical history presents for left ankle pain for ms3 greater than 1 week. Patient states without ambulation there is no pain. Patient states pain is worse with ambulation. Patient states she has had right ear pain for 2 months that she currently rates a 2/10. Patient denies alleviating or inciting factors. Historical: - Allergies: 10:26 No Known Allergies; ss - Home Meds: 10:26 None [Active]; ss - PMHx: 10:26 None; ss - PSHx: 10:26 None; ss - Immunization history:: Client reports receiving the 2nd dose of the Covid vaccine. - Social history:: Smoking status: Patient denies any tobacco usage or history of. ROS: 13:39 Constitutional: Negative for fever, and chills. Neck: Negative for injury, pain, and ms3 swelling, Cardiovascular: Negative for chest pain, and palpitations. Respiratory: Negative for shortness of breath, cough, wheezing, and pleuritic chest pain, Abdomen/GI: Negative for abdominal pain, nausea, vomiting, diarrhea, and constipation. 13:39 ENT: Positive for ear pain. 13:39 MS/extremity: Positive for pain, Left ankle. 13:39 All other systems are negative. Exam: 13:39 Constitutional: This is a well developed, well nourished patient who is awake, alert, ms3 and in no acute distress. Head/Face: Normocephalic, atraumatic. ENT: Nares patent. No nasal discharge, no septal abnormalities noted. Tympanic membranes are normal and external auditory canals are clear. Oropharynx with no redness, swelling, or masses, exudates, or evidence of obstruction, uvula midline. Mucous membranes moist. Neck: Trachea midline, no cervical lymphadenopathy. Supple, full range of motion without nuchal rigidity, or vertebral point tenderness. No Meningismus. Chest/axilla: Normal chest wall appearance and motion. Nontender with no deformity. Cardiovascular: Regular rate and rhythm with a normal S1 and S2. No gallops, murmurs, or rubs. Normal PMI, no JVD. No pulse deficits. Respiratory: Lungs have equal breath sounds bilaterally, clear to auscultation and percussion. No rales, rhonchi or wheezes noted. No increased work of breathing, no retractions or nasal flaring. Abdomen/GI: Soft, non-tender, with normal bowel sounds. No distension or tympany. No guarding or rebound. No evidence of tenderness throughout. Skin: Warm, dry with normal turgor. Normal color with no rashes, no lesions, and no evidence of cellulitis. 13:39 Musculoskeletal/extremity: Extremities: noted in the Left ankle: There is no evidence of decreased ROM, ecchymosis, erythema, pain, swelling, tenderness. Vital Signs: 10:24 BP 115 / 64; Pulse 92; Resp 14; Temp 98.1(TE); Pulse Ox 98% on R/A; Weight 81.65 kg; ss Height 5 ft. 2 in. (157.48 cm); Pain 0/10; 10:24 Body Mass Index 32.92 (81.65 kg, 157.48 cm) ss MDM: 10:33 Patient medically screened. ms3 13:39 Differential diagnosis: Allergic rhinitis versus ligament strain versus MSK pain. Data ms3 reviewed: vital signs, nurses notes, and as a result, I will discharge patient. Counseling: I had a detailed discussion with the patient and/or guardian regarding: the historical points, exam findings, and any diagnostic results supporting the discharge/admit diagnosis, the need for outpatient follow up, to return to the emergency department if symptoms worsen or persist or if there are any questions or concerns that arise at home. ED course: Discussed physical exam findings with patient. Patient to follow-up with her primary care physician in 2 to 3 days. Patient understands and agrees with plan. All questions were answered. Return precautions discussed include worsening symptoms, or any other concerns. Administered Medications: No medications were administered Disposition: 13:41 Chart complete. ms3 Disposition Summary: 07/07/22 10:35 Discharge Ordered Location: Home ms3 Condition: Stable ms3 Diagnosis - Otalgia ms3 - Pain in left ankle and joints of left foot ms3 Followup: ms3 - With: Carrillo Colmenares MD - When: 2 - 3 days - Reason: Recheck today's complaints Followup: ms3 - With: Rachael Mahoney MD - When: 2 - 3 days - Reason: Recheck today's complaints Discharge Instructions: - Discharge Summary Sheet ms3 - Musculoskeletal Pain ms3 Forms: - Medication Reconciliation Form ms3 - Work release form ss - Thank You Letter ms3 - Antibiotic Education ms3 - Prescription Opioid Use ms3 Prescriptions: - Nasacort 55 mcg Nasal aerosol,spray - spray 2 spray by INTRANASAL route once daily; 1 Pump; Refills: 0, Product ms3 Selection Permitted - Claritin 10 mg Oral Tablet - take 1 tablet by ORAL route once daily As needed; 30 tablet; Refills: 0, ms3 Product Selection Permitted Signatures: Billie Padilla, RN RN ss Shay Degroot DO DO ms3
--- NOTE | 2022-07-07 10:36 | ER ---
Nurse's Notes [facility] Name: Guillermina Carlson Age: 22 yrs Sex: Female : 2000 Arrival Date: 07/07/2022 Time: 10:00 Bed 12 Private MD: Diagnosis: Otalgia;Pain in left ankle and joints of left foot Presentation: 07/07 10:24 Chief complaint: Patient states: L ankle pain that began over a week ago. Is worse when ss "on it all day". Pt also c/o R ear pain >1 month. Comes and goes. Coronavirus screen: Client denies travel out of the [place] in the last 14 days. Ebola Screen: Patient denies exposure to infectious person. Patient denies travel to an Ebola-affected area in the 21 days before illness onset. Initial Sepsis Screen: Does the patient meet any 2 criteria? No. Patient's initial sepsis screen is negative. Does the patient have a suspected source of infection? No. Patient's initial sepsis screen is negative. Risk Assessment: Do you want to hurt yourself or someone else? Patient reports no desire to harm self or others. Onset of symptoms is unknown. 10:24 Method Of Arrival: Ambulatory ss 10:24 Acuity: SHIRLEY 4 ss Historical: - Allergies: 10:26 No Known Allergies; ss - Home Meds: 10:26 None [Active]; ss - PMHx: 10:26 None; ss - PSHx: 10:26 None; ss - Immunization history:: Client reports receiving the 2nd dose of the Covid vaccine. - Social history:: Smoking status: Patient denies any tobacco usage or history of. Screenin:30 [facility] ED Fall Risk Assessment (Adult) History of falling in the last 3 months, ss including since admission No falls in past 3 months (0 pts). Abuse screen: Denies threats or abuse. Denies injuries from another. Nutritional screening: No deficits noted. Tuberculosis screening: Never had TB. Assessment: 10:30 General: Appears in no apparent distress. comfortable, Behavior is calm, cooperative. ss General: Pt reports that R ear has been bothering her off and on for over a month. L ankle has been hurting only when on feet a long time while working for over a week. . Pain: Complains of pain in L ankle, R ear. Neuro: Level of Consciousness is awake, alert, obeys commands, Oriented to person, place, time, situation. Cardiovascular: Capillary refill < 3 seconds is brisk in bilateral fingers. Respiratory: Airway is patent Respiratory effort is even, unlabored, Respiratory pattern is regular, symmetrical. EENT: Nares are clear. Derm: Skin is intact, is healthy with good turgor, Skin is pink, warm \\T\\ dry. normal. Musculoskeletal: Circulation, motion, and sensation intact. Range of motion: intact in all extremities, Swelling absent. Vital Signs: 10:24 BP 115 / 64; Pulse 92; Resp 14; Temp 98.1(TE); Pulse Ox 98% on R/A; Weight 81.65 kg; ss Height 5 ft. 2 in. (157.48 cm); Pain 0/10; 10:24 Body Mass Index 32.92 (81.65 kg, 157.48 cm) ED Course: 10:00 Patient arrived in ED. am2 10:08 Shay Degroot DO is Attending Physician. ms3 10:26 Triage completed. ss 10:26 Arm band placed on right wrist. ss 10:30 Billie Padilla RN is Primary Nurse. ss 10:33 Carrillo Colmenares MD is Referral Physician. ms3 10:34 Rachael Mahoney MD is Referral Physician. ms3 10:40 No provider procedures requiring assistance completed. Patient did not have IV access ss during this emergency room visit. Administered Medications: No medications were administered Medication: 10:30 VIS not applicable for this client. ss Outcome: 10:35 Discharge ordered by . ms3 10:40 Discharged to home ambulatory, with friend. ss 10:40 Condition: good 10:40 Discharge instructions given to patient, friend, Instructed on discharge instructions, follow up and referral plans. medication usage, Demonstrated understanding of instructions, follow-up care, medications, Prescriptions given X 2. 10:40 Patient left the ED. ss Signatures: Billie Padilla RN RN Sofía Carlson am2 Shay Degroot DO DO ms3
[2022-07-07 10:54] VITALS: BP 115/64; TEMP 98.1; O2SAT 98
== END 2022-07-07 10:40 | disposition home or self-care (01) ==
LOC: ER 09:59
DX: H92.01 Otalgia, right ear (principal); M25.572 Pain in left ankle and joints of left foot
CPT/HCPCS: 99282

== ENCOUNTER → 2023-06-05 | Emergency (ER) | payer SELFPAY ==
[~2023-06-05] MED LIST: SMZ./TMP. 800/160 MG TABLET ONE
--- OUTSIDE RECORDS SUMMARY | 2023-06-05 19:19 | XMS REPORT | Continuity of Care Document ---
Author Name Unknown Address [address] [facility] [address] [place] [address] [facility] thconnect Address [address] [facility] [address] [place] [address] Care Team Providers Care Office Services Manager Name Role Phone Chelo Olivier Primary Care Physician Un available YULI HERRMANN Attending Clinician Unavailable SHAYNE MITCHELL Attending Clinician Unavailable YUMIKO CASTELLON Attending Clinician Unavaila ble MEME TREJO Attending Clinician Unavail able Yumiko Castellon CNM Attending Clinician [phone] Neil Meme CANCHOLA Attending Clinician + Doctor Unassigned, [place] Attending Clinician U navailCHELO Armendariz Attending Clinician Unavailab mariama Abreu, [facility] Res-1st Attending Clinician Unavailable Yvette Leiva MD Attending Clinician [phone] YVETTE LEIVA Attending Clinician Unavailable NATALIYA SPRINGER Attending Clinician Unavailab Nataliya Alvarado DO Attending Clinician [phone] Bryan BAUER Attending Clinician Unavailable Bryan Jansen Attending Clinician [phone] JENNI OSEI Attending Clinician Unavailable Jneni Osei DO Attending Clinician [phone] Shayne Mitchell MD Attending Clinician [phone] Allen Villalta MD Attending Clinician [phone] Daisha Olivierhunda Dami Attending Clinician [phone] Lab, [facility] Attending Clinician Unavailable Ultrasound, Fausto Attending Clinician Hernan Madden MD R Attending Clinician [phone] Trey Laird DO Attending Clinician EMILY SPRINGER Attending Clinician Unavailabl e Visit, [facility] Nurse Attending Clinician Jesús JIANG, Emily Guzman Attending Clinician [phone] RIK JUDD Attending Clinician Unavailable Louie REYES, Luz Marina Lantigua Attending Clinician [phone] NATALIYA SPRINGER Admitting Clinician Unavailab mariama Palma MD, Luz Marina Lantigua Admitting Clinician [phone] Payers Payer Name Policy Type Policy Number Effective Date Expirati on Date Source [facility] [id number] 2020 00:00:00 [place] [id number] 2020 00:00:00 MEDICAID PENDING PENDING 2020 00:00:00 Problems Condition Name Condition Details Condition Category Status Onset Date Resolution Date Last Treatment Date Treating Clinician Comments Source Supervisio n of high-risk Supervisio n of high-risk Disease Active 2021-0508 00:00: 00 [facility] Herpes infection in Herpes infection in Disease Active 10-03 00:00: 00 Overview: Formattin g of this note might be different from the original. Suppressi on at 36 weeks [facility] Susceptibl e to varicella (non-immun e), currently Susceptibl e to varicella (non-immun e), currently Disease Active 09-09 00:00: 00 Overview: Formattin g of this note might be different from the original. Address pp [facility] Multiparit y Multiparit y Disease Active 09-05 00:00: 00 [facility] History of miscarriag e History of miscarriag e Disease Active 09-05 00:00: 00 Overview: Formattin g of this note might be different from the original. x2 [facility] of unknown anatomic location of unknown anatomic location Disease Active 4-29 00:00: 00 [facility] Obesity in Obesity in Disease Active 2018-05 2-06 00:00: 00 [facility] Anemia associated with acute blood loss Anemia associated with acute blood loss Disease Active 9 00:00: 00 [facility] Rubella non-immune status, antepartum Rubella non-immune status, antepartum Disease Active 06-09 00:00: 00 Overview: Formattin g of this note might be different from the original. Address pp [facility] Generalize d anxiety disorder Generalize d anxiety disorder Disease Active 01-07 00:00: 00 [facility] Allergies, Adverse Reactions, Alerts Allergy Name Allergy Type Status Severity Reaction(s) Onset Date Inactive Date Treating Clinician Comments Source NO KNOWN ALLERGIE S Drug Class Active [facility] Social History Social Habit Start Date Stop Date Quantity Comments Source ASSERTION 2022-03-25 00:00:00 [facility] History SDOH Alcohol Frequency [facility] History SDOH [facility] SDOH Alcohol Binge [facility] to SARS-CoV-2 (event) 2022-04-06 00:00:00 2022-04-16 10:21:00 Not sure [facility] Alcohol Comment 2021-08-22 00:00:00 2021-08-22 00:00:00 social [facility] History of Social function 2021-08-22 00:00:00 2021-08-22 00:00:00 [facility] Alcohol intake 2020-10-01 00:00:00 2020-10-01 00:00:00 0 /d [facility] Tobacco use and exposure 2020-09-23 00:00:00 2020-09-23 00:00:00 Smokeless tobacco non-user [facility] Tobacco Comment 2020-09-23 00:00:00 2020-09-23 00:00:00 quit 2 months ago- 2-3 cigarrettes few days [facility] History of tobacco use 2018-04-14 00:00:00 Cigarette Smoker [facility] Sex Assigned At 2000 00:00:00 2000 00:00:00 [facility] Smoking Status Start Date Stop Date Source Ex-smoker 2020-09-23 00:00:00 2020-09-23 [facility] Ordered Medication Name Filled Medication Name Start Date Stop Date Current Medication? Ordering Clinician Indication Dosage Frequency Signature (SIG) Comments Components Source amoxicillin 500 mg tablet 2021-05 00:00: 00 05-02 05:59 :00 No [id number] 500mg Take 1 tablet by mouth in the morning and 1 tablet in the evening. Do all this for 10 days. [facility] multivitami n ( VITAMIN) tablet 2021-05 00:00: 00 Yes [id number] 1{tbl} Take 1 tablet by mouth in the morning. [facility] multivitami n ( VITAMIN) tablet 2021-05 00:00: 00 Yes [id number] 1{tbl} Take 1 tablet by mouth in the morning. [facility] multivitami n ( VITAMIN) tablet 2021-05 00:00: 00 Yes [id number] 1{tbl} Take 1 tablet by mouth in the morning. [facility] multivitami n ( VITAMIN) tablet 2021-05 00:00: 00 Yes [id number] 1{tbl} Take 1 tablet by mouth in the morning. [facility] multivitami n ( VITAMIN) tablet 2021-05 00:00: 00 Yes [id number] 1{tbl} Take 1 tablet by mouth in the morning. [facility] multivitami n ( VITAMIN) tablet 2021-05 00:00: 00 Yes [id number] 1{tbl} Take 1 tablet by mouth in the morning. [facility] multivitami n ( VITAMIN) tablet 2021-05 00:00: 00 Yes [id number] 1{tbl} Take 1 tablet by mouth in the morning. [facility] 875-125 mg per tablet 2021-05 00:00: 00 Yes TAKE 1 TABLET BY MOUTH EVERY 12 HOURS FOR 10 DAYS. [facility]an[facility] 875-125 mg per tablet 2021-05 00:00: 00 Yes TAKE 1 TABLET BY MOUTH EVERY 12 HOURS FOR 10 DAYS. [facility]an[facility] 875-125 mg per tablet 2021-05 00:00: 00 Yes TAKE 1 TABLET BY MOUTH EVERY 12 HOURS FOR 10 DAYS. [facility]an[facility] 875-125 mg per tablet 2021-05 00:00: 00 Yes TAKE 1 TABLET BY MOUTH EVERY 12 HOURS FOR 10 DAYS. [facility] amoxicillin -clavulanat e 875-125 mg per tablet 2021-05 00:00: 00 Yes TAKE 1 TABLET BY MOUTH EVERY 12 HOURS FOR 10 DAYS. [facility] amoxicillin -clavulanat e 875-125 mg per tablet 2021-05 00:00: 00 04-21 00:00 :00 No TAKE 1 TABLET BY MOUTH EVERY 12 HOURS FOR 10 DAYS. [facility] amoxicillin -clavulanat e 875-125 mg per tablet 2021-05 00:00: 00 04-21 00:00 :00 No TAKE 1 TABLET BY MOUTH EVERY 12 HOURS FOR 10 DAYS. [facility] proMETHazin e 25 mg tablet 0 5-27 00:00: 00 Yes [id number] 25mg Take 1 tablet by mouth every 6 (six) hours as needed for Nausea and Vomiting (N/V). [facility] proMETHazin e 25 mg tablet 0 5-27 00:00: 00 04-16 00:00 :00 No [id number] 25mg Take 1 tablet by mouth every 6 (six) hours as needed for Nausea and Vomiting (N/V). [facility] proMETHazin e 25 mg tablet 0 5-27 00:00: 00 04-16 00:00 :00 No [id number] 25mg Take 1 tablet by mouth every 6 (six) hours as needed for Nausea and Vomiting (N/V). [facility] proMETHazin e 25 mg tablet 10-03 00:00: 00 04-16 00:00 :00 No [id number] 25mg Take 1 tablet by mouth every 6 (six) hours as needed for Nausea and Vomiting (N/V). [facility] proMETHazin e 25 mg tablet 10-03 00:00: 00 04-16 00:00 :00 No [id number] 25mg Take 1 tablet by mouth every 6 (six) hours as needed for Nausea and Vomiting (N/V). [facility] multivitami n ( VITAMIN) tablet 09-05 00:00: 00 Yes [id number] 1{tbl} Take 1 tablet by mouth daily. [facility] multivitami n ( VITAMIN) tablet 09-05 00:00: 00 04-16 00:00 :00 No [id number] 1{tbl} Take 1 tablet by mouth daily. [facility] multivitami n ( VITAMIN) tablet 09-05 00:00: 00 04-16 00:00 :00 No [id number] 1{tbl} Take 1 tablet by mouth daily. [facility] multivitami n ( VITAMIN) tablet 09-05 00:00: 00 04-16 00:00 :00 No [id number] 1{tbl} Take 1 tablet by mouth daily. [facility] multivitami n ( VITAMIN) tablet 09-05 00:00: 00 04-16 00:00 :00 No [id number] 1{tbl} Take 1 tablet by mouth daily. [facility] Immunizations Ordered Immunization Name Filled Immunization Name Date Status Comments Source Influenza Virus Vaccine Quad .5 mL IM 6+ MO 2019-04-14 00:00:00 Completed [facility] Influenza Virus Vaccine Quad .5 mL IM 6+ MO 2019-04-14 00:00:00 Completed [facility] Influenza Virus Vaccine Quad .5 mL IM 6+ MO 2019-04-14 00:00:00 Completed [facility] Influenza Virus Vaccine Quad .5 mL IM 6+ MO 2019-04-14 00:00:00 Completed [facility] Influenza Virus Vaccine Quad .5 mL IM 6+ MO 2019-04-14 00:00:00 Completed [facility] Influenza Virus Vaccine Quad .5 mL IM 6+ MO 2019-04-14 00:00:00 Completed [facility] Influenza Virus Vaccine Quad .5 mL IM 6+ MO 2019-04-14 00:00:00 Completed [facility] Influenza Virus Vaccine Quad .5 mL IM 6+ MO 2019-04-14 00:00:00 Completed [facility] MMR 2019-01-26 00:00:00 Completed [facility] MMR 2019-01-26 00:00:00 Completed [facility] MMR 2019-01-26 00:00:00 Completed [facility] MMR 2019-01-26 00:00:00 Completed [facility] MMR 2019-01-26 00:00:00 Completed [facility] MMR 2019-01-26 00:00:00 Completed [facility] MMR 2019-01-26 00:00:00 Completed [facility] MMR 2019-01-26 00:00:00 Completed [facility] TDAP 2018-11-02 00:00:00 Completed [facility] TDAP 2018-11-02 00:00:00 Completed [facility] TDAP 2018-11-02 00:00:00 Completed [facility] TDAP 2018-11-02 00:00:00 Completed [facility] TDAP 2018-11-02 00:00:00 Completed [facility] TDAP 2018-11-02 00:00:00 Completed [facility] TDAP 2018-11-02 00:00:00 Completed [facility] TDAP 2018-11-02 00:00:00 Completed [facility] HPV9 2016-04-20 00:00:00 Completed [facility] TDAP 2016-04-20 00:00:00 Completed [facility] HPV9 2016-04-20 00:00:00 Completed [facility] TDAP 2016-04-20 00:00:00 Completed [facility] HPV9 2016-04-20 00:00:00 Completed [facility] TDAP 2016-04-20 00:00:00 Completed [facility] HPV9 2016-04-20 00:00:00 Completed [facility] TDAP 2016-04-20 00:00:00 Completed [facility] HPV9 2016-04-20 00:00:00 Completed [facility] TDAP 2016-04-20 00:00:00 Completed [facility] HPV9 2016-04-20 00:00:00 Completed [facility] TDAP 2016-04-20 00:00:00 Completed [facility] HPV9 2016-04-20 00:00:00 Completed [facility] TDAP 2016-04-20 00:00:00 Completed [facility] HPV9 2016-04-20 00:00:00 Completed [facility] TDAP 2016-04-20 00:00:00 Completed [facility] HPV 2014-12-19 00:00:00 Completed [facility] HPV 2014-12-19 00:00:00 Completed [facility] HPV 2014-12-19 00:00:00 Completed [facility] HPV 2014-12-19 00:00:00 Completed [facility] HPV 2014-12-19 00:00:00 Completed [facility] HPV 2014-12-19 00:00:00 Completed [facility] HPV 2014-12-19 00:00:00 Completed [facility] HPV 2014-12-19 00:00:00 Completed [facility] MMR 2014-01-24 00:00:00 Completed [facility] MMR 2014-01-24 00:00:00 Completed [facility] MMR 2014-01-24 00:00:00 Completed [facility] MMR 2014-01-24 00:00:00 Completed [facility] MMR 2014-01-24 00:00:00 Completed [facility] MMR 2014-01-24 00:00:00 Completed [facility] MMR 2014-01-24 00:00:00 Completed [facility] MMR 2014-01-24 00:00:00 Completed [facility] HEPATITIS A 2013-11-20 00:00:00 Completed [facility] HPV 2013-11-20 00:00:00 Completed [facility] HEPATITIS A 2013-11-20 00:00:00 Completed [facility] HPV 2013-11-20 00:00:00 Completed [facility] HEPATITIS A 2013-11-20 00:00:00 Completed [facility] HPV 2013-11-20 00:00:00 Completed [facility] HEPATITIS A 2013-11-20 00:00:00 Completed [facility] HPV 2013-11-20 00:00:00 Completed [facility] HEPATITIS A 2013-11-20 00:00:00 Completed [facility] HPV 2013-11-20 00:00:00 Completed [facility] HEPATITIS A 2013-11-20 00:00:00 Completed [facility] HPV 2013-11-20 00:00:00 Completed [facility] HEPATITIS A 2013-11-20 00:00:00 Completed [facility] HPV 2013-11-20 00:00:00 Completed [facility] HEPATITIS A 2013-11-20 00:00:00 Completed [facility] HPV 2013-11-20 00:00:00 Completed [facility] Influenza Virus Vaccine 2013-04-12 00:00:00 Completed [facility] Influenza Virus Vaccine 2013-04-12 00:00:00 Completed [facility] Influenza Virus Vaccine 2013-04-12 00:00:00 Completed [facility] Influenza Virus Vaccine 2013-04-12 00:00:00 Completed [facility] Influenza Virus Vaccine 2013-04-12 00:00:00 Completed [facility] Influenza Virus Vaccine 2013-04-12 00:00:00 Completed [facility] Influenza Virus Vaccine 2013-04-12 00:00:00 Completed [facility] Influenza Virus Vaccine 2013-04-12 00:00:00 Completed [facility] Influenza Virus Vaccine 2011-09-01 00:00:00 Completed [facility] Influenza Virus Vaccine 2011-09-01 00:00:00 Completed [facility] Influenza Virus Vaccine 2011-09-01 00:00:00 Completed [facility] Influenza Virus Vaccine 2011-09-01 00:00:00 Completed [facility] Influenza Virus Vaccine 2011-09-01 00:00:00 Completed [facility] Influenza Virus Vaccine 2011-09-01 00:00:00 Completed [facility] Influenza Virus Vaccine 2011-09-01 00:00:00 Completed [facility] Influenza Virus Vaccine 2011-09-01 00:00:00 Completed [facility] HEPATITIS A 2010-09-25 00:00:00 Completed [facility] Meningococcal Vaccine 2010-09-25 00:00:00 Completed [facility] HEPATITIS A 2010-09-25 00:00:00 Completed [facility] Meningococcal Vaccine 2010-09-25 00:00:00 Completed [facility] HEPATITIS A 2010-09-25 00:00:00 Completed [facility] Meningococcal Vaccine 2010-09-25 00:00:00 Completed [facility] HEPATITIS A 2010-09-25 00:00:00 Completed [facility] Meningococcal Vaccine 2010-09-25 00:00:00 Completed [facility] HEPATITIS A 2010-09-25 00:00:00 Completed [facility] Meningococcal Vaccine 2010-09-25 00:00:00 Completed [facility] HEPATITIS A 2010-09-25 00:00:00 Completed [facility] Meningococcal Vaccine 2010-09-25 00:00:00 Completed [facility] HEPATITIS A 2010-09-25 00:00:00 Completed [facility] Meningococcal Vaccine 2010-09-25 00:00:00 Completed [facility] HEPATITIS A 2010-09-25 00:00:00 Completed [facility] Meningococcal Vaccine 2010-09-25 00:00:00 Completed [facility] PPD (TB) 2010-01-14 00:00:00 Completed [facility] Influenza Virus Vaccine 2010-01-14 00:00:00 Completed [facility] PPD (TB) 2010-01-14 00:00:00 Completed [facility] Influenza Virus Vaccine 2010-01-14 00:00:00 Completed [facility] PPD (TB) 2010-01-14 00:00:00 Completed [facility] Influenza Virus Vaccine 2010-01-14 00:00:00 Completed [facility] PPD (TB) 2010-01-14 00:00:00 Completed [facility] Influenza Virus Vaccine 2010-01-14 00:00:00 Completed [facility] PPD (TB) 2010-01-14 00:00:00 Completed [facility] Influenza Virus Vaccine 2010-01-14 00:00:00 Completed [facility] PPD (TB) 2010-01-14 00:00:00 Completed [facility] Influenza Virus Vaccine 2010-01-14 00:00:00 Completed [facility] PPD (TB) 2010-01-14 00:00:00 Completed [facility] Influenza Virus Vaccine 2010-01-14 00:00:00 Completed [facility] PPD (TB) 2010-01-14 00:00:00 Completed [facility] Influenza Virus Vaccine 2010-01-14 00:00:00 Completed [facility] HEPATITIS A 2009-07-15 00:00:00 Completed [facility] Varicella (varivax)(chicken pox) 2009-07-15 00:00:00 Completed [facility] HEPATITIS A 2009-07-15 00:00:00 Completed [facility] Varicella (varivax)(chicken pox) 2009-07-15 00:00:00 Completed [facility] HEPATITIS A 2009-07-15 00:00:00 Completed [facility] Varicella (varivax)(chicken pox) 2009-07-15 00:00:00 Completed [facility] HEPATITIS A 2009-07-15 00:00:00 Completed [facility] Varicella (varivax)(chicken pox) 2009-07-15 00:00:00 Completed [facility] HEPATITIS A 2009-07-15 00:00:00 Completed [facility] Varicella (varivax)(chicken pox) 2009-07-15 00:00:00 Completed [facility] HEPATITIS A 2009-07-15 00:00:00 Completed [facility] Varicella (varivax)(chicken pox) 2009-07-15 00:00:00 Completed [facility] HEPATITIS A 2009-07-15 00:00:00 Completed [facility] Varicella (varivax)(chicken pox) 2009-07-15 00:00:00 Completed [facility] HEPATITIS A 2009-07-15 00:00:00 Completed [facility] Varicella (varivax)(chicken pox) 2009-07-15 00:00:00 Completed [facility] H1n1 Vaccine 2009-03-29 00:00:00 Completed [facility] H1n1 Vaccine 2009-03-29 00:00:00 Completed [facility] H1n1 Vaccine 2009-03-29 00:00:00 Completed [facility] H1n1 Vaccine 2009-03-29 00:00:00 Completed [facility] H1n1 Vaccine 2009-03-29 00:00:00 Completed [facility] H1n1 Vaccine 2009-03-29 00:00:00 Completed [facility] H1n1 Vaccine 2009-03-29 00:00:00 Completed [facility] H1n1 Vaccine 2009-03-29 00:00:00 Completed [facility] DTAP 2003-05-23 00:00:00 Completed [facility] MMR 2003-05-23 00:00:00 Completed [facility] Polio (IPV/OPV) 2003-05-23 00:00:00 Completed [facility] DTAP 2003-05-23 00:00:00 Completed [facility] MMR 2003-05-23 00:00:00 Completed [facility] Polio (IPV/OPV) 2003-05-23 00:00:00 Completed [facility] DTAP 2003-05-23 00:00:00 Completed [facility] MMR 2003-05-23 00:00:00 Completed [facility] Polio (IPV/OPV) 2003-05-23 00:00:00 Completed [facility] DTAP 2003-05-23 00:00:00 Completed [facility] MMR 2003-05-23 00:00:00 Completed [facility] Polio (IPV/OPV) 2003-05-23 00:00:00 Completed [facility] DTAP 2003-05-23 00:00:00 Completed [facility] MMR 2003-05-23 00:00:00 Completed [facility] Polio (IPV/OPV) 2003-05-23 00:00:00 Completed [facility] DTAP 2003-05-23 00:00:00 Completed [facility] MMR 2003-05-23 00:00:00 Completed [facility] Polio (IPV/OPV) 2003-05-23 00:00:00 Completed [facility] DTAP 2003-05-23 00:00:00 Completed [facility] MMR 2003-05-23 00:00:00 Completed [facility] Polio (IPV/OPV) 2003-05-23 00:00:00 Completed [facility] DTAP 2003-05-23 00:00:00 Completed [facility] MMR 2003-05-23 00:00:00 Completed [facility] Polio (IPV/OPV) 2003-05-23 00:00:00 Completed [facility] DTAP 2001-07-25 00:00:00 Completed [facility] HIB 4 Dose Schedule 2001-07-25 00:00:00 Completed [facility] DTAP 2001-07-25 00:00:00 Completed [facility] HIB 4 Dose Schedule 2001-07-25 00:00:00 Completed [facility] DTAP 2001-07-25 00:00:00 Completed [facility] HIB 4 Dose Schedule 2001-07-25 00:00:00 Completed [facility] DTAP 2001-07-25 00:00:00 Completed [facility] HIB 4 Dose Schedule 2001-07-25 00:00:00 Completed [facility] DTAP 2001-07-25 00:00:00 Completed [facility] HIB 4 Dose Schedule 2001-07-25 00:00:00 Completed [facility] DTAP 2001-07-25 00:00:00 Completed [facility] HIB 4 Dose Schedule 2001-07-25 00:00:00 Completed [facility] DTAP 2001-07-25 00:00:00 Completed [facility] HIB 4 Dose Schedule 2001-07-25 00:00:00 Completed [facility] DTAP 2001-07-25 00:00:00 Completed [facility] HIB 4 Dose Schedule 2001-07-25 00:00:00 Completed [facility] DTAP 2000-03-30 00:00:00 Completed [facility] HIB 4 Dose Schedule 2000-03-30 00:00:00 Completed [facility] Hep B, Adol or Pedi Dosage 2000-03-30 00:00:00 Completed [facility] MMR 2000-03-30 00:00:00 Completed [facility] Polio (IPV/OPV) 2000-03-30 00:00:00 Completed [facility] Varicella (varivax)(chicken pox) 2000-03-30 00:00:00 Completed [facility] DTAP 2000-03-30 00:00:00 Completed [facility] HIB 4 Dose Schedule 2000-03-30 00:00:00 Completed [facility] Hep B, Adol or Pedi Dosage 2000-03-30 00:00:00 Completed [facility] MMR 2000-03-30 00:00:00 Completed [facility] Polio (IPV/OPV) 2000-03-30 00:00:00 Completed [facility] Varicella (varivax)(chicken pox) 2000-03-30 00:00:00 Completed [facility] DTAP 2000-03-30 00:00:00 Completed [facility] HIB 4 Dose Schedule 2000-03-30 00:00:00 Completed [facility] Hep B, Adol or Pedi Dosage 2000-03-30 00:00:00 Completed [facility] MMR 2000-03-30 00:00:00 Completed [facility] Polio (IPV/OPV) 2000-03-30 00:00:00 Completed [facility] Varicella (varivax)(chicken pox) 2000-03-30 00:00:00 Completed [facility] DTAP 2000-03-30 00:00:00 Completed [facility] HIB 4 Dose Schedule 2000-03-30 00:00:00 Completed [facility] Hep B, Adol or Pedi Dosage 2000-03-30 00:00:00 Completed [facility] MMR 2000-03-30 00:00:00 Completed [facility] Polio (IPV/OPV) 2000-03-30 00:00:00 Completed [facility] Varicella (varivax)(chicken pox) 2000-03-30 00:00:00 Completed [facility] DTAP 2000-03-30 00:00:00 Completed [facility] HIB 4 Dose Schedule 2000-03-30 00:00:00 Completed [facility] Hep B, Adol or Pedi Dosage 2000-03-30 00:00:00 Completed [facility] MMR 2000-03-30 00:00:00 Completed [facility] Polio (IPV/OPV) 2000-03-30 00:00:00 Completed [facility] Varicella (varivax)(chicken pox) 2000-03-30 00:00:00 Completed [facility] DTAP 2000-03-30 00:00:00 Completed [facility] HIB 4 Dose Schedule 2000-03-30 00:00:00 Completed [facility] Hep B, Adol or Pedi Dosage 2000-03-30 00:00:00 Completed [facility] MMR 2000-03-30 00:00:00 Completed [facility] Polio (IPV/OPV) 2000-03-30 00:00:00 Completed [facility] Varicella (varivax)(chicken pox) 2000-03-30 00:00:00 Completed [facility] DTAP 2000-03-30 00:00:00 Completed [facility] HIB 4 Dose Schedule 2000-03-30 00:00:00 Completed [facility] Hep B, Adol or Pedi Dosage 2000-03-30 00:00:00 Completed [facility] MMR 2000-03-30 00:00:00 Completed [facility] Polio (IPV/OPV) 2000-03-30 00:00:00 Completed [facility] Varicella (varivax)(chicken pox) 2000-03-30 00:00:00 Completed [facility] DTAP 2000-03-30 00:00:00 Completed [facility] HIB 4 Dose Schedule 2000-03-30 00:00:00 Completed [facility] Hep B, Adol or Pedi Dosage 2000-03-30 00:00:00 Completed [facility] MMR 2000-03-30 00:00:00 Completed [facility] Polio (IPV/OPV) 2000-03-30 00:00:00 Completed [facility] Varicella (varivax)(chicken pox) 2000-03-30 00:00:00 Completed [facility] DTAP 1999 00:00:00 Completed [facility] HIB 4 Dose Schedule 1999 00:00:00 Completed [facility] Polio (IPV/OPV) 1999 00:00:00 Completed [facility] DTAP 1999 00:00:00 Completed [facility] HIB 4 Dose Schedule 1999 00:00:00 Completed [facility] Polio (IPV/OPV) 1999 00:00:00 Completed [facility] DTAP 1999 00:00:00 Completed [facility] HIB 4 Dose Schedule 1999 00:00:00 Completed [facility] Polio (IPV/OPV) 1999 00:00:00 Completed [facility] DTAP 1999 00:00:00 Completed [facility] HIB 4 Dose Schedule 1999 00:00:00 Completed [facility] Polio (IPV/OPV) 1999 00:00:00 Completed [facility] DTAP 1999 00:00:00 Completed [facility] HIB 4 Dose Schedule 1999 00:00:00 Completed [facility] Polio (IPV/OPV) 1999 00:00:00 Completed [facility] DTAP 1999 00:00:00 Completed [facility] HIB 4 Dose Schedule 1999 00:00:00 Completed [facility] Polio (IPV/OPV) 1999 00:00:00 Completed [facility] DTAP 1999 00:00:00 Completed [facility] HIB 4 Dose Schedule 1999 00:00:00 Completed [facility] Polio (IPV/OPV) 1999 00:00:00 Completed [facility] DTAP 1999 00:00:00 Completed [facility] HIB 4 Dose Schedule 1999 00:00:00 Completed [facility] Polio (IPV/OPV) 1999 00:00:00 Completed [facility] HIB 4 Dose Schedule 1999 00:00:00 Completed [facility] Polio (IPV/OPV) 1999 00:00:00 Completed [facility] HIB 4 Dose Schedule 1999 00:00:00 Completed [facility] Polio (IPV/OPV) 1999 00:00:00 Completed [facility] HIB 4 Dose Schedule 1999 00:00:00 Completed [facility] Polio (IPV/OPV) 1999 00:00:00 Completed [facility] HIB 4 Dose Schedule 1999 00:00:00 Completed [facility] Polio (IPV/OPV) 1999 00:00:00 Completed [facility] HIB 4 Dose Schedule 1999 00:00:00 Completed [facility] Polio (IPV/OPV) 1999 00:00:00 Completed [facility] HIB 4 Dose Schedule 1999 00:00:00 Completed [facility] Polio (IPV/OPV) 1999 00:00:00 Completed [facility] HIB 4 Dose Schedule 1999 00:00:00 Completed [facility] Polio (IPV/OPV) 1999 00:00:00 Completed [facility] HIB 4 Dose Schedule 1999 00:00:00 Completed [facility] Polio (IPV/OPV) 1999 00:00:00 Completed [facility] DTAP 1999 00:00:00 Completed [facility] Hep B, Adol or Pedi Dosage 1999 00:00:00 Completed [facility] DTAP 1999 00:00:00 Completed [facility] Hep B, Adol or Pedi Dosage 1999 00:00:00 Completed [facility] DTAP 1999 00:00:00 Completed [facility] Hep B, Adol or Pedi Dosage 1999 00:00:00 Completed [facility] DTAP 1999 00:00:00 Completed [facility] Hep B, Adol or Pedi Dosage 1999 00:00:00 Completed [facility] DTAP 1999 00:00:00 Completed [facility] Hep B, Adol or Pedi Dosage 1999 00:00:00 Completed [facility] DTAP 1999 00:00:00 Completed [facility] Hep B, Adol or Pedi Dosage 1999 00:00:00 Completed [facility] DTAP 1999 00:00:00 Completed [facility] Hep B, Adol or Pedi Dosage 1999 00:00:00 Completed [facility] DTAP 1999 00:00:00 Completed [facility] Hep B, Adol or Pedi Dosage 1999 00:00:00 Completed [facility] Hep B, Adol or Pedi Dosage 1999 00:00:00 Completed [facility] Hep B, Adol or Pedi Dosage 1999 00:00:00 Completed [facility] Hep B, Adol or Pedi Dosage 1999 00:00:00 Completed [facility] Hep B, Adol or Pedi Dosage 1999 00:00:00 Completed [facility] Hep B, Adol or Pedi Dosage 1999 00:00:00 Completed [facility] Hep B, Adol or Pedi Dosage 1999 00:00:00 Completed [facility] Hep B, Adol or Pedi Dosage 1999 00:00:00 Completed [facility] Hep B, Adol or Pedi Dosage 1999 00:00:00 Completed [facility] H1n1 Vaccine Unknown Completed [facility] HEPATITIS A Unknown Completed [facility] Varicella (varivax)(chicken pox) Unknown Completed [facility] PPD (TB) Unknown Completed [facility] Influenza Virus Vaccine Unknown Completed [facility] DTAP Unknown Completed [facility] DTAP Unknown Completed [facility] DTAP Unknown Completed [facility] DTAP Unknown Completed [facility] DTAP Unknown Completed [facility] HIB 4 Dose Schedule Unknown Completed [facility] HIB 4 Dose Schedule Unknown Completed [facility] HIB 4 Dose Schedule Unknown Completed [facility] HIB 4 Dose Schedule Unknown Completed [facility] Hep B, Adol or Pedi Dosage Unknown Completed [facility] Hep B, Adol or Pedi Dosage Unknown Completed [facility] Hep B, Adol or Pedi Dosage Unknown Completed [facility] MMR Unknown Completed [facility] MMR Unknown Completed [facility] Polio (IPV/OPV) Unknown Completed [facility] Polio (IPV/OPV) Unknown Completed [facility] Polio (IPV/OPV) Unknown Completed [facility] Polio (IPV/OPV) Unknown Completed [facility] Varicella (varivax)(chicken pox) Unknown Completed [facility] MMR Unknown Completed [facility] HEPATITIS A Unknown Completed [facility] HEPATITIS A Unknown Completed [facility] HPV Unknown Completed [facility] HPV Unknown Completed [facility] Influenza Virus Vaccine Unknown Completed [facility] Influenza Virus Vaccine Unknown Completed [facility] Meningococcal Vaccine Unknown Completed [facility] HPV9 Unknown Completed [facility] TDAP Unknown Completed [facility] TDAP Unknown Completed [facility] MMR Unknown Completed [facility] Influenza Virus Vaccine Quad .5 mL IM 6+ MO (FLUZONE/FLULAVAL/F LUARIX) Unknown Completed [facility] Vital Signs Vital Name Observation Time Observation Value Comments S ource Systolic blood pressure 2022-04-16 16:22:00 110 mm[Hg] [facility] Diastolic blood pressure 2022-04-16 16:22:00 60 mm[Hg] [facility] Heart rate 2022-04-16 16:22:00 96 /min [facility] Body temperature 2022-04-16 16:22:00 37.06 Evy [facility] Respiratory rate 2022-04-16 16:22:00 18 /min [facility] Body height 2022-04-16 16:22:00 157.5 cm [facility] Body weight 2022-04-16 16:22:00 80.485 kg [facility] BMI 2022-04-16 16:22:00 32.45 kg/m2 [facility] Systolic blood pressure 2021-11-03 14:03:00 110 mm[Hg] [facility] Diastolic blood pressure 2021-11-03 14:03:00 63 mm[Hg] [place] [facility] Heart rate 2021-11-03 14:03:00 108 /min [facility] Body temperature 2021-11-03 14:03:00 36 Evy [facility] Respiratory rate 2021-11-03 14:03:00 18 /min [facility] Body height 2021-11-03 14:03:00 157.5 cm [facility] Body weight 2021-11-03 14:03:00 76.658 kg [facility] BMI 2021-11-03 14:03:00 30.91 kg/m2 [facility] Procedures Procedure Date / Time Performed Performing Clinicia n Source REPORT OF 2022-04-16 06:01:00 Doctor Enrrique garza, [place] [facility] POCT URINALYSIS 2022-04-16 00:00:00 Meme Trejo [facility] POCT TEST 2022-04-16 00:00:00 Armen Trejo [facility] Encounters Start Date/Time End Date/Time Encounter Type Admission Type Attending Clinicians Care Facility Care Department Encounter ID Source 2022-12-04 10:27:32 Outpatient [facility] [id number] [facility] 2023-04-15 10:45:00 2023-04-15 10:45:00 Outpatient YULI HERRMANN [facility] [id number] [facility] 2022-10-13 15:52:44 2022-10-13 15:52:44 Outpatient [id number] [id number] Rolf Murray Garret 2022-06-08 10:00:00 2022-06-08 10:00:[address] [facility] [id number] [facility] 2022-05-28 14:00:00 2022-05-28 14:00:00 Outpatient R YUMIKO CASTELLON [facility] [id number] [facility] 2022-05-14 10:45:00 2022-05-14 10:45:00 Outpatient R YUMIKO CASTELLON [facility] [id number] [facility] 2022-04-29 14:30:00 2022-04-29 14:30:[address] [facility] [id number] [facility] 2022-04-21 00:00:00 2022-04-21 00:00:00 Case Management Yumiko Castellon [facility] 1..114 350.1.13.10 4.2.7.2.686 [id number] [facility] 2022-04-20 00:00:00 2022-04-20 00:00:[address] [facility] 1..114 350.1.13.10 4.2.7.2.686 [id number] [facility] 2022-04-16 10:45:00 2022-04-16 11:08:07 Outpatient R [address] [facility] [id number] [facility] 2022-04-16 10:45:00 2022-04-16 11:08:07 Initial Visit Meme Trejo Brenda A [facility] 1.0.114 350.1.13.10 4.2.7.2.686 [id number] [facility] 2022-04-16 00:00:00 2022-04-16 00:00:00 Orders Only Doctor Unassigned, [place] [facility] 1.0.114 350.1.13.10 4.2.7.2.686 [id number] [facility] 2021-12-24 09:45:00 2021-12-24 09:45:00 [address]Y [facility] [id number] [facility] 2021-11-12 13:00:00 2021-11-12 13:00:00 Outpatient R [address]E T[address] [facility] [id number] [facility] 2021-11-07 13:00:00 2021-11-07 13:00:[address] [facility] [id number] [facility] 2021-11-03 08:45:00 2021-11-03 10:55:43 Routine Visit Trimester, [facility] [address] [place] [address] 1..840.114 350.1.13.10 4.2.7.2.686 [id number] [facility] 2021-11-03 08:45:00 2021-11-03 10:55:43 Outpatient R YVETTE LEIVA [facility] [id number] [facility] 2021-11-03 08:45:00 2021-11-03 08:45:00 Outpatient R YVETTE LEIVA [facility] [id number] [facility] 2021-10-31 09:00:00 2021-10-31 09:15:00 Routine Visit Trimester, [facility] [address] [place] [address] 1..840.114 350.1.13.10 4.2.7.2.686 [id number] [facility] 2021-10-31 09:00:00 2021-10-31 09:00:00 Outpatient R YVETTE LEIVA [facility] [id number] [facility] 2021-10-29 11:00:00 2021-10-29 11:42:46 Outpatient R [address] [facility] [id number] [facility] 2021-10-29 11:00:00 2021-10-29 11:42:46 Routine Visit Meme Trejo [facility] 1..840.114 350.1.13.10 4.2.7.2.686 [id number] [facility] 2021-10-27 12:58:00 2021-10-27 16:35:00 Emergency X NATALIYA SPRINGER [facility] ERT [id number] [facility] 2021-10-27 12:58:00 2021-10-27 16:35:00 Emergency Nataliya Springer [facility] 1..840.114 350.1.13.10 4.2.7.2.686 [id number] [facility] 2021-10-27 12:58:00 2021-10-27 16:35:00 Emergency X NATALIYA SPRINGER [facility] ERT [id number] [facility] 2021-10-27 00:00:00 2021-10-27 00:00:00 Telephone Meme Trejo [facility] 1..840.114 350.1.13.10 4.2.7.2.686 [id number] [facility] 2021-10-10 14:45:00 2021-10-10 14:45:00 Outpatient R [address] [facility] [facility] [id number] [facility] 2021-10-10 14:45:00 2021-10-10 14:45:00 Outpatient R [address] [facility] [id number] [facility] 2021-10-09 13:45:00 2021-10-09 13:45:00 Outpatient R [address] [id number] [facility] 2021-10-03 16:00:00 2021-10-03 16:15:00 Routine Visit DougcuateleydiMeme Malena [facility] 1.2.840.114 350.1.13.10 4.2.7.2.686 [id number] [facility] 2021-10-03 16:00:00 2021-10-03 16:00:00 Outpatient R [address] [id number] [facility] 2021-10-03 16:00:00 2021-10-03 16:00:00 Outpatient R [address] [id number] [facility] 2021-09-09 23:48:00 2021-09-10 01:57:00 Emergency X Bryan BAUER [facility] ERT [id number] [facility] 2021-09-09 23:48:00 2021-09-10 01:57:00 Emergency Bryan Bauerge [facility] 1.2.840.114 350.1.13.10 4.2.7.2.686 [id number] [facility] 2021-09-05 14:15:00 2021-09-05 15:20:42 Initial Visit Meme Trejo [facility] 1.2.840.114 350.1.13.10 4.2.7.2.686 [id number] [facility] 2021-09-05 14:15:00 2021-09-05 15:20:42 Outpatient R [address] [facility] [id number] [facility] 2021-09-05 14:15:00 2021-09-05 14:15:00 Outpatient R [address] [id number] [facility] 2021-09-05 13:45:00 2021-09-05 14:11:27 Outpatient R [address] [facility] [id number] [facility] 2021-09-04 00:00:00 2021-09-04 00:00:00 Telephone Prudenceleydi Meme Guy [facility] W[facility]NER [facility] 1.2840.114 350.1.13.10 4.2.7.2.686 [id number] [facility] 2021-08-25 00:00:00 2021-08-25 00:00:00 Telephone DougTeo brianirene Guy [facility] 1.2.114 350.1.13.10 4.2.7.2.686 [id number] [facility] 2021-08-22 08:00:00 2021-08-22 09:01:20 Office Visit Meme Trejo [facility] [employer] 1.20.114 350.1.13.10 4.2.7.2.686 [id number] [facility] 2021-08-22 08:00:00 2021-08-22 09:01:20 Outpatient [address] [facility] [id number] [facility] 2021-08-22 08:00:00 2021-08-22 08:00:00 Outpatient R [address] [id number] [facility] 2021-08-22 00:00:00 2021-08-22 00:00:00 Orders Only Doctor Unassigned, [place] [facility] 1..114 350.1.13.10 4.2.7.2.686 [id number] [facility] 2021-08-22 00:00:00 2021-08-22 00:00:00 Letter (Out) Meme Trejo [facility] 1.2.840.114 350.1.13.10 4.2.7.2.686 [id number] [facility] 2021-08-13 10:28:00 2021-08-13 11:01:00 Emergency X JENNI OSEI [facility] ERT [id number] [facility] 2021-08-13 10:28:00 2021-08-13 11:01:00 Emergency Jenni Osei [facility] 1.840.114 350.1.13.10 4.2.7.2.686 [id number] [facility] 2021-08-13 00:00:00 2021-08-13 00:00:00 Orders Only Doctor Unassigned, [place] [facility] 1.0.114 350.1.13.10 4.2.7.2.686 [id number] [facility] 2020-11-25 09:00:00 2020-11-25 09:00:[address] [facility] [id number] [facility] 2020-11-22 10:45:00 2020-11-22 11:00:00 Telemedici ne Visit Trimester, [facility] Shayne Mitchell [facility] 1..114 350.1.13.10 4.2.7.2.686 [id number] [facility] 2020-11-22 10:45:00 2020-11-22 10:45:00 [id number] 2020-11-08 10:00:57 2020-11-08 10:35:05 Routine Visit Trimester, [facility] Res-1st [place] [facility] 1..114 350.1.13.10 4.2.7.2.686 [id number] [facility] 2020-11-08 10:00:00 2020-11-08 10:00:[address] [facility] [id number] [facility] 2020-11-06 16:45:00 2020-11-06 16:45:00 Out[address] Dami CAREY [facility] [id number] [facility] 2020-11-06 00:00:00 2020-11-06 00:00:00 Telephone Chelo Carey [facility] WIRE SP[facility]NER [facility] 1.2.840.114 350.1.13.10 4.2.7.2.686 [id number] [facility] 2020-11-05 15:59:30 2020-11-05 16:27:56 Office Visit CareyChelo [facility] W[facility] 1.2.840.114 350.1.13.10 4.2.7.2.686 [id number] [facility] 2020-11-05 16:00:00 2020-11-05 16:00:00 Out[address] Dami CAREY [facility] [id number] [facility] 2020-11-05 00:00:00 2020-11-05 00:00:00 Telephone CareyChelo [facility] WIRE SP[facility]NER [facility] 1.2.840.114 350.1.13.10 4.2.7.2.686 [id number] [facility] 2020-10-29 16:30:00 2020-10-29 16:30:[address] [facility] [id number] [facility] 2020-10-21 15:30:00 2020-10-21 15:30:[address] 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 [id number] [facility] 2020-10-18 00:00:00 2020-10-18 00:00:00 Telephone Chelo Carey [facility] WIRE SPINNER [facility] 1.0.114 350.1.13.10 4.2.7.2.686 [id number] [facility] 2020-10-14 10:45:00 2020-10-14 10:45:[address] [facility] [id number] [facility] 2020-10-11 00:00:00 2020-10-11 00:00:00 Orders Only Doctor Unassigned, [place] [facility] 1..114 350.1.13.10 4.2.7.2.686 [id number] [facility] 2020-10-11 00:00:00 2020-10-11 00:00:00 Telephone Chelo Carey [facility] WIRE SPINNER [facility] 1..114 350.1.13.10 4.2.7.2.686 [id number] [facility] 2020-10-03 00:00:00 2020-10-03 00:00:00 Patient Secure Msg Doctor Unassigned, [place] [facility] 1.0.114 350.1.13.10 4.2.7.2.686 [id number] [facility] 2020-10-01 09:29:23 2020-10-01 11:47:08 Routine Visit Trimester, [facility] Res-[address] Villaltanedra Soni [facility] 1.114 350.1.13.10 4.2.7.2.686 [id number] [facility] 2020-10-01 09:30:00 2020-10-01 09:30:[address] [facility] [id number] [facility] 2020-10-01 00:00:00 2020-10-01 00:00:00 Orders Only Doctor Unassigned, [place] [facility] 1..114 350.1.13.10 4.2.7.2.686 [id number] [facility] 2020-09-30 09:48:35 2020-09-30 10:19:37 Routine Visit Chelo Carey [facility] WIRE SPINNER [facility] 1..114 350.1.13.10 4.2.7.2.686 [id number] [facility] 2020-09-30 09:24:35 2020-09-30 09:48:43 Supervisor Malted Milk Visit Ultrasound, OliverMeme Elise George [facility] WIRE SPINNER [facility] 1.114 350.1.13.10 4.2.7.2.686 [id number] [facility] 2020-09-30 08:47:58 2020-09-30 09:02:58 Supervisor Malted Milk [facility] W[facility] SPINNER [facility] 1..114 350.1.13.10 4.2.7.2.686 [id number] [facility] 2020-09-30 08:30:00 2020-09-30 08:30:[address] [facility] [id number] [facility] 2020-09-30 00:00:00 2020-09-30 00:00:00 Telephone Chelo Carey [facility] WIRE SPINNER [facility] 1.2840.114 350.1.13.10 4.2.7.2.686 [id number] [facility] 2020-09-25 00:00:00 2020-09-25 00:00:00 Telephone Chelo Carey [facility] WIRE SPINNER [facility] 1.2840.114 350.1.13.10 4.2.7.2.686 [id number] [facility] 2020-09-23 14:13:53 2020-09-23 15:44:35 Initial Visit Chelo Carey [facility] WIRE SPINNER [facility] 1.2840.114 350.1.13.10 4.2.7.2.686 [id number] [facility] 2020-09-23 14:00:00 2020-09-23 14:00:00 Outpatient R CHELO CAREY [facility] [id number] [facility] 2020-09-23 00:00:00 2020-09-23 00:00:00 Orders Only Doctor Unassigned, [place] [facility] 1.2840.114 350.1.13.10 4.2.7.2.686 [id number] [facility] 2020-07-30 00:00:00 2020-07-30 00:00:00 Patient Outreach Trey Laird [facility] 1.284.114 350.1.13.10 4.2.7.2.686 [id number] [facility] 2020-04-25 16:00:00 2020-04-25 16:00:00 Outpatient R EMILY SPR[facility] [id number] [facility] 2020-02-28 13:30:00 2020-02-28 13:30:[address] [facility] [id number] [facility] 2019-11-28 16:05:10 2019-11-28 16:35:57 [facility] Springer [facility] WIRE SPINNER [facility] 1.2.840.114 350.1.13.10 4.2.7.2.686 [id number] [facility] 2019-11-28 16:05:2019-11-28 16:35:57 Nurse Visit Visit, Keyur Nurse [facility] WIRE SPINNER [facility] 1.2.840.114 350.1.13.10 4.2.7.2.686 [id number] 2019-11-28 14:00:00 2019-11-28 14:00:00 Outpatient R EMILY [facility] [id number] [facility] 2019-11-27 00:00:00 2019-11-27 00:00:00 Telephone Meme Trejo [facility] WIRE SPINNER [facility] 1.2840.114 350.1.13.10 4.2.7.2.686 [id number] [facility] 2019-11-27 00:00:00 2019-11-27 00:00:00 Telephone Meme Trejo [facility] WIRE SPINNER [facility] 1.2.840.114 350.1.13.10 4.2.7.2.686 [id number] 2019-11-24 12:47:22 2019-11-24 13:38:45 Office Visit Meme Trejo [facility] W[facility] SPINNER [facility] 1.2.840.114 350.1.13.10 4.2.7.2.686 [id number] [facility] 2019-11-24 12:45:00 2019-11-24 12:45:00 Outpatient R MEME TREJO [facility] [id number] [facility] 2019-11-24 00:00:00 2019-11-24 00:00:00 Telephone Meme Trejo [facility] WIRE SPINNER [facility] 1.2.840.114 350.1.13.10 4.2.7.2.686 [id number] [facility] 2019-11-24 00:00:00 2019-11-24 00:00:00 Orders Only Doctor Unassigned, [place] [facility] 1.2840.114 350.1.13.10 4.2.7.2.686 [id number] [facility] 2019-11-24 00:00:00 2019-11-24 00:00:00 Letter (Out) Meme Trejo [facility] WIRE SPINNER [facility] 1.2840.114 350.1.13.10 4.2.7.2.686 [id number] [facility] 2019-11-09 16:20:00 2019-11-09 16:20:00 Outpatient R RIK JUDD [facility] [id number] [facility] 2019-01-25 09:10:00 2019-01-26 20:45:00 Hospital Encounter PalmaLuz Marina Grzegorz [facility] 1.20.114 350.1.13.10 4.2.7.2.686 [id number] [facility] 2019-01-25 00:00:00 2019-01-25 00:00:00 Orders Only Doctor Unassigned, [place] [facility] 1.2840.114 350.1.13.10 4.2.7.2.686 [id number] [facility] 2019-01-18 13:13:34 2019-01-18 14:03:06 Routine Visit Meme Trejo [facility] WIRE SPINNER [facility] 1.2.840.114 350.1.13.10 4.2.7.2.686 [id number] [facility] 2019-01-11 14:56:31 2019-01-11 15:42:02 Routine Visit Meme Trejo [facility] W[facility] SPINNER [facility] 1.2.840.114 350.1.13.10 4.2.7.2.686 [id number] [facility] 2019-01-04 10:45:17 2019-01-04 11:24:54 Routine Visit Meme Trejo [facility] 1.2.840.114 350.1.13.10 4.2.7.2.686 [id number] [facility] 2018-12-15 13:22:12 2018-12-15 13:41:21 Routine Visit Meme Trejo [facility] 1.2.840.114 350.1.13.10 4.2.7.2.686 [id number] [facility] Results Test Description Test Time Test Comments Results Result Co mments Source [facility] [id number] 16:16:00* Test Item Value Reference Range Interpretation Comme nts POCT PREG (test code = 1605) Positive On board controls acceptable with C Line (test code = 3574) Yes POCT PREG LOT # (test code = 3575) POCT PREG TEST DATE ( test code = 3576[id number] 16:16:00* Test Item Value Reference Range Interpretation Comme nts POCT PREG (test code = 1605) Positive On board controls acceptable with C Line (test code = 3574) Yes POCT PREG LOT # (test code = 3575) POCT PREG TEST DATE ( test code = 3576) [facility] [id number] 16:16:00* Test Item Value Reference Range Interpretation Comme nts POCT PREG (test code = 1605) Positive On board controls acceptable with C Line (test code = 3574) Yes POCT PREG LOT # (test code = 3575) POCT PREG TEST DATE ( test code = 3576) [facility] URINALYSIS W SPECIFIC [id number] 16:13:00* Test Item Value Reference Range Interpretation Comme nts POCT U SP GRAV (test code = 3255) negative 1.005-1.025 POCT PH U (test code = 3254) 5 mg/dl 5-8 POCT U LEUK EST (test code = 3263) negtive Negative - Negative POCT U NIT (test code = 3262) negative Negative - Negati ve POCT U PROT (test code = 3259) trace Negative - Negat lorin POCT U GLU (test code = 3256) negative Negative - Negati ve POCT U KETONE (test code = 3258) negative Negative - Neg ative POCT U UROBILI (test code = 3260) negative 0.2-1 POCT U BILI (test code = 3261) negative Negative - Negat lorin POCT U BLD (test code = 3257) negative Negative - Negati ve POCT U COLOR (test code = 3266) yellow POCT U APPEAR (test code = 3267) . [facility] URINALYSIS W SPECIFIC [id number] 16:13:00* Test Item Value Reference Range Interpretation Comme nts POCT U SP GRAV (test code = 3255) negative 1.005-1.025 POCT PH U (test code = 3254) 5 mg/dl 5-8 POCT U LEUK EST (test code = 3263) negtive Negative - Negative POCT U NIT (test code = 3262) negative Negative - Negati ve POCT U PROT (test code = 3259) trace Negative - Negat lorin POCT U GLU (test code = 3256) negative Negative - Negati ve POCT U KETONE (test code = 3258) negative Negative - Neg ative POCT U UROBILI (test code = 3260) negative 0.2-1 POCT U BILI (test code = 3261) negative Negative - Negat lorin POCT U BLD (test code = 3257) negative Negative - Negati ve POCT U COLOR (test code = 3266) yellow POCT U APPEAR (test code = 3267) . [facility] URINALYSIS W SPECIFIC [id number] 16:13:00* Test Item Value Reference Range Interpretation Comme nts POCT U SP GRAV (test code = 3255) negative 1.005-1.025 POCT PH U (test code = 3254) 5 mg/dl 5-8 POCT U LEUK EST (test code = 3263) negtive Negative - Negative POCT U NIT (test code = 3262) negative Negative - Negati ve POCT U PROT (test code = 3259) trace Negative - Negat lorin POCT U GLU (test code = 3256) negative Negative - Negati ve POCT U KETONE (test code = 3258) negative Negative - Neg ative POCT U UROBILI (test code = 3260) negative 0.2-1 POCT U BILI (test code = 3261) negative Negative - Negat lorin POCT U BLD (test code = 3257) negative Negative - Negati ve POCT U COLOR (test code = 3266) yellow POCT U APPEAR (test code = 3267) . [facility] URINALYSIS W SPECIFIC [id number] 16:13:00* Test Item Value Reference Range Interpretation Comme nts POCT U SP GRAV (test code = 3255) negative 1.005-1.025 POCT PH U (test code = 3254) 5 mg/dl 5-8 POCT U LEUK EST (test code = 3263) negtive Negative - Negative POCT U NIT (test code = 3262) negative Negative - Negati ve POCT U PROT (test code = 3259) trace Negative - Negat olrin POCT U GLU (test code = 3256) negative Negative - Negati ve POCT U KETONE (test code = 3258) negative Negative - Neg ative POCT U UROBILI (test code = 3260) negative 0.2-1 POCT U BILI (test code = 326) negative Negative - Negat lorin POCT U BLD (test code = 2867) negative Negative - Negati ve POCT U COLOR (test code = 4223) yellow POCT U APPEAR (test code = 0697) . [facility]
[2023-06-05 20:29] LABS: Urine Bacteria None Seen /HPF (<20); Urine Crystals Unidentified Few /HPF (None Seen); Urine Mucus Slight /HPF (None Seen); Urine WBC Clump Rare /HPF (None Seen)
[2023-06-05 20:30] LABS: Specific Gravity 1.029 (1.005-1.030)
--- NOTE | 2023-06-05 21:01 | EDPHYS ---
Physician Documentation [facility] Name: Guillermina Carlson Age: 23 yrs Sex: Female : 2000 Arrival Date: 06/05/2023 Time: 19:15 Bed 11 Private MD: ED Physician Marcio Chance HPI: 06/05 20:00 This 23 yrs old Female presents to ER via Ambulatory with complaints of Pain cp With Urination. 20:00 The patient presents with urinary symptoms, dysuria. Onset: The symptoms/episode cp began/occurred 1 week(s) ago. Associated signs and symptoms: Pertinent positives: dysuria, urinary odor, Pertinent negatives: diarrhea, fever, vaginal bleeding, vaginal discharge, vomiting, back pain. 20:00 Severity of symptoms: in the emergency department the symptoms are unchanged, despite cp home interventions. Historical: - Allergies: 19:36 No Known Allergies; ha1 - Immunization history:: Adult Immunizations up to date. - Social history:: Smoking status: Patient denies any tobacco usage or history of. ROS: 20:10 Eyes: Negative for injury, pain, redness, and discharge, cp 20:10 Constitutional: Negative for body aches, chills, fever, poor PO intake, 20:10 Cardiovascular: Negative for chest pain, palpitations, 20:10 Respiratory: Negative for cough, shortness of breath, wheezing, 20:10 Abdomen/GI: Negative for abdominal pain, vomiting, diarrhea, constipation, 20:10 Back: Negative for pain at rest, pain with movement, 20:10 : Positive for burning with urination, foul smelling urine, Negative for vaginal bleeding, vaginal discharge, 20:10 Neuro: Negative for headache, weakness, 20:10 All other systems are negative, Exam: 20:13 Constitutional: The patient appears in no acute distress, alert, awake, comfortable, cp non-toxic, well developed, well nourished, 20:13 Head/Face: Normocephalic, atraumatic. cp 20:13 Eyes: Periorbital structures: appear normal, Conjunctiva: normal, no exudate, no injection, Sclera: no appreciated abnormality, Lids and lashes: appear normal, bilaterally, 20:13 ENT: External ear(s): are unremarkable, Nose: is normal, Posterior pharynx: Airway: no evidence of obstruction, patent, 20:13 Chest/axilla: Inspection: normal, 20:13 Cardiovascular: Rate: normal, 20:13 Respiratory: the patient does not display signs of respiratory distress, Respirations: normal, no use of accessory muscles, no retractions, 20:13 Abdomen/GI: Exam negative for discomfort, distension, guarding, Inspection: abdomen appears normal, 20:13 Back: pain, is absent, ROM is normal, CVA tenderness, is absent, Vital Signs: 19:32 BP 140 / 74; Pulse 88; Resp 17 S; Temp 98.2(O); Pulse Ox 99% on R/A; Weight 73.48 kg; ha1 Height 5 ft. 2 in. ; 21:06 BP 119 / 78; Pulse 81; Resp 16; Pulse Ox 99% ; as6 19:32 Body Mass Index 29.63 (73.48 kg, 157.48 cm) ha1 MDM: 19:35 Patient medically screened. cp 20:00 Differential diagnosis: pelvic inflammatory disease, urinary tract infection, cp vaginosis, kidney stone. 21:00 Data reviewed: vital signs, nurses notes, lab test result(s), and as a result, I will cp discharge patient. 21:00 I considered the following discharge prescriptions or medication management in the cp emergency department Medications were administered in the Emergency Department. See MAR. Counseling: I had a detailed discussion with the patient and/or guardian regarding the historical points, exam findings, and any diagnostic results supporting the discharge/admit diagnosis, lab results, to return to the emergency department if symptoms worsen or persist or if there are any questions or concerns that arise at home. 06/05 19:51 Order name: Urine Microscopic Only; Complete Time: 20:44 cp 06/05 19:51 Order name: Test, Urine; Complete Time: 20:44 cp 06/05 20:32 Order name: Urine Culture EDMS Administered Medications: 21:05 Drug: Trimethoprim-Sulfamethoxazole PO (160 mg-800 mg (DS) 1 tablet PO once Route: PO; as6 21:05 Follow up: Response: No adverse reaction as6 Disposition Summary: 06/05/23 21:00 Discharge Ordered Notes: Location: Home cp Problem: new cp Symptoms: have improved cp Condition: Stable cp Diagnosis - UTI/ Urinary tract infection, site not specified cp Followup: cp - With: Private Physician - When: 2 - 3 days - Reason: Worsening of condition Discharge Instructions: - Discharge Summary Sheet cp - Urinary Tract Infection, Adult cp Forms: - Medication Reconciliation Form cp - Thank You Letter cp - Antibiotic Education cp - Prescription Opioid Use cp - Patient Portal Instructions cp - Leadership Thank You Letter cp Prescriptions: - Pyridium 200 mg Oral tablet - take 1 tablet ORAL route every 8 hours for 3 days; 6 tablet; Refills: 0, cp Product Selection Permitted - Bactrim DS 800-160 mg Oral Tablet - take 1 tablet ORAL route every 12 hours for 7 days; 14 tablet; Refills: 0, cp Product Selection Permitted Signatures: Dispatcher [employer] EDMS Marcio Robertson PA PA cp Slawson, Ashby, RN RN as6 Angeles Franklin RN RN ha1
--- NOTE | 2023-06-05 21:01 | ER ---
Nurse's Notes [facility] Name: Guillermina Carlson Age: 23 yrs Sex: Female : 2000 Arrival Date: 06/05/2023 Time: 19:15 Bed 11 Private MD: Diagnosis: UTI/ Urinary tract infection, site not specified Presentation: 06/05 19:32 Chief complaint: Patient states: one week ago I had burning with urination and it felt ha1 like it had gone away but every morning I experience the burning sensations. Also my urine smells bad. Coronavirus screen: Vaccine status: Patient reports being unvaccinated. Ebola Screen: No symptoms or risks identified at this time. Initial Sepsis Screen: Does the patient meet any 2 criteria? No. Patient's initial sepsis screen is negative. Does the patient have a suspected source of infection? No. Patient's initial sepsis screen is negative. Risk Assessment: Do you want to hurt yourself or someone else? Patient reports no desire to harm self or others. Onset of symptoms was May 31, 2023. 19:32 Method Of Arrival: Ambulatory ha1 19:32 Acuity: SHIRLEY 4 ha1 Triage Assessment: 19:36 General: Appears comfortable, Behavior is calm, cooperative. Neuro: Level of ha1 Consciousness is awake, alert, obeys commands, Oriented to person, place, time, situation. Respiratory: Airway is patent Respiratory effort is even, unlabored, Respiratory pattern is regular, symmetrical. : Reports burning with urination. Historical: - Allergies: 19:36 No Known Allergies; ha1 - Immunization history:: Adult Immunizations up to date. - Social history:: Smoking status: Patient denies any tobacco usage or history of. Screenin:14 [facility] ED Fall Risk Assessment (Adult) Score/Fall Risk Level 0 - 2 = Low Risk. Abuse as6 screen: Denies threats or abuse. Denies injuries from another. Nutritional screening: No deficits noted. Tuberculosis screening: No symptoms or risk factors identified. Vital Signs: 19:32 BP 140 / 74; Pulse 88; Resp 17 S; Temp 98.2(O); Pulse Ox 99% on R/A; Weight 73.48 kg; ha1 Height 5 ft. 2 in. ; 21:06 BP 119 / 78; Pulse 81; Resp 16; Pulse Ox 99% ; as6 19:32 Body Mass Index 29.63 (73.48 kg, 157.48 cm) ha1 ED Course: 19:18 Patient arrived in ED. jj6 19:27 Marcio Robertson PA is PHCP. cp 19:27 Marcio Chance MD is Attending Physician. cp 19:36 Triage completed. ha1 20:14 Suhas Dietz, RN is Primary Nurse. as6 20:14 Urine Microscopic Only Sent. as6 20:14 Test, Urine Sent. as6 20:14 Arm band placed on. as6 20:14 Bed in low position. Call light in reach. as6 21:05 No provider procedures requiring assistance completed. Patient did not have IV access as6 during this emergency room visit. 21:05 Provided Education on: rx teaching. as6 Administered Medications: 21:05 Drug: Trimethoprim-Sulfamethoxazole PO (160 mg-800 mg (DS) 1 tablet PO once Route: PO; as6 21:05 Follow up: Response: No adverse reaction as6 Medication: 20:14 VIS not applicable for this client. as6 Outcome: 21:00 Discharge ordered by . cp 21:05 Discharged to home ambulatory, as6 21:05 Condition: stable 21:05 Discharge instructions given to patient, Instructed on discharge instructions, follow up and referral plans. medication usage, Demonstrated understanding of instructions, follow-up care, medications, Prescriptions given X 1, 21:06 Patient left the ED. as6 Signatures: Marcio Robertson PA PA cp Jeffries, Jennifer jj6 Suhas Dietz, RN RN as6 Angeles Franklin RN RN ha1
[2023-06-05 21:28] VITALS: BP 119/78; TEMP 98.2; O2SAT 99
== END ==
LOC: ER 19:15
DX: N39.0 Urinary tract infection, site not specified (principal); R30.9 Painful micturition, unspecified
CPT/HCPCS: 81015; 81025; 87077; 87086; 87088; 87186

== ENCOUNTER 2024-04-12 08:24 | Emergency (ER) | payer SELFPAY ==
--- OUTSIDE RECORDS SUMMARY | 2024-04-12 08:28 | XMS REPORT | Continuity of Care Document ---
Author Name Unknown Address [address] [place] [address] [facility] thconnect Address [address] [place] [address] Care Team Providers Care [employer] Grader Name Role Phone Chelo Olivier Primary Care Physician Un available YULI HERRMANN Attending Clinician Unavailable SHAYNE MITCHELL Attending Clinician Unavailable YUMIKO CASTELLON Attending Clinician Unavaila ble MEME TREJO Attending Clinician Unavail able Yumiko Castellon CNM Attending Clinician [phone] Neil Meme CANCHOLA Attending Clinician + Doctor Unassigned, [place] Attending Clinician U navailable CHELO CAREY Attending Clinician Unavailab mariama Abreu, [facility] Res-1st Attending Clinician Unavailable Yvette Leiva MD Attending Clinician [phone] YVETTE LEIVA Attending Clinician Unavailable NATALIYA SPRINGER Attending Clinician Unavailab Nataliya Alvarado DO Attending Clinician [phone] Bryan BAUER Attending Clinician Unavailable Bryan Jansen Attending Clinician [phone] JENNI OSEI Attending Clinician Unavailable Jenni Osei DO Attending Clinician [phone] Shayne Mitchell MD Attending Clinician [phone] Allen Villalta MD Attending Clinician [phone] Carey HIDE SALTER, Chelo R Attending Clinician + [phone] Lab, [facility] Attending Clinician Unavailable Ultrasound, Fausto Attending Clinician Unavailsarita Mckeon MD, Hernan R Attending Clinician [phone] Trey Laird DO Attending Clinician EMILY SPRINGER Attending Clinician Unavailabl e Visit, [facility] Nurse Attending Clinician Jesús JIANG, Emily Guzman Attending Clinician [phone] RIK JUDD Attending Clinician Unavailable Louie REYES, Luz Marina Lantigua Attending Clinician [phone] NATALIYA SPRINGER Admitting Clinician Unavailab Gaudencio REYES, Luz Marina Lantigua Admitting Clinician [phone] Payers Payer Name Policy Type Policy Number Effective Date Expirati on Date Source [facility] [id number] 2020 00:00:00 MEDICAID [place] [id number] 2020 00:00:00 MEDICAID PENDING PENDING 2020 00:00:00 Problems Condition Name Condition Details Condition Category Status Onset Date Resolution Date Last Treatment Date Treating Clinician Comments Source Supervisio n of high-risk Supervisio n of high-risk Disease Active 2021-05 2-08 00:00: 00 [facility] Herpes infection in Herpes infection in Disease Active 10-03 00:00: 00 Overview: Formattin g of this note might be different from the original. Suppressi on at 36 weeks [facility] Susceptibl e to varicella (non-immun e), currently Susceptibl e to varicella (non-immun e), currently Disease Active 5-03 00:00: 00 Overview: Formattin g of this note might be different from the original. Address pp [facility] Multiparit y Multiparit y Disease Active 09-05 00:00: 00 [facility] History of miscarriag e History of miscarriag e Disease Active 09-05 00:00: 00 Overview: Formattin g of this note might be different from the original. x2 [facility] of unknown anatomic location of unknown anatomic location Disease Active 4-29 00:00: 00 [facility] Obesity in Obesity in Disease Active 2018-05 2-06 00:00: 00 [facility] Anemia associated with acute blood loss Anemia associated with acute blood loss Disease Active 9 00:00: 00 [facility] Rubella non-immune status, antepartum Rubella non-immune status, antepartum Disease Active 06-09 00:00: 00 Overview: Formattin g of this note might be different from the original. Address pp [facility] Generalize d anxiety disorder Generalize d anxiety disorder Disease Active 01-07 00:00: 00 [facility] Allergies, Adverse Reactions, Alerts Allergy Name Allergy Type Status Severity Reaction(s) Onset Date Inactive Date Treating Clinician Comments Source NO KNOWN ALLERGIE S Drug Class Active [facility] Social History Social Habit Start Date Stop Date Quantity Comments Source ASSERTION 2022-03-25 00:00:00 [facility] History SDOH Alcohol Frequency [facility] History SDOH Alcohol Std Drinks [facility] History SDOH Alcohol Binge [facility] to SARS-CoV-2 (event) 2022-04-06 00:00:00 2022-04-16 10:21:00 Not sure [facility] Alcohol Comment 2021-08-22 00:00:00 2021-08-22 00:00:00 social [facility] History of Social function 2021-08-22 00:00:00 2021-08-22 00:00:00 [facility] Alcohol intake 2020-10-01 00:00:00 2020-10-01 00:00:00 0 /d [facility] Tobacco use and exposure 2020-09-23 00:00:00 2020-09-23 00:00:00 Smokeless tobacco non-user [facility] Tobacco Comment 2020-09-23 00:00:00 2020-09-23 00:00:00 quit 2 months ago- 2-3 cigarrettes few days [facility] History of tobacco use 2018-04-14 00:00:00 Cigarette Smoker [facility] Sex Assigned At 1999 00:00:00 2000 00:00:00 [facility] Smoking Status Start Date Stop Date Source Ex-smoker 2020-09-23 00:00:00 2020-09-23 00:00:00 U [facility] Medications Ordered Medication Name Filled Medication Name Start Date Stop Date Current Medication? Ordering Clinician Indication Dosage Frequency Signature (SIG) Comments Components Source amoxicillin 500 mg tablet 2021-05 00:00: 00 05-02 05:59 :00 No [id number] 500mg Take 1 tablet by mouth in the morning and 1 tablet in the evening. Do all this for 10 days. [facility] multivitami n ( VITAMIN) tablet 2021-05 00:00: 00 Yes [id number] 1{tbl} Take 1 tablet by mouth in the morning. [facility] amoxicillin -clavulanat e 875-125 mg per tablet 2021-05 00:00: 00 04-21 00:00 :00 No TAKE 1 TABLET BY MOUTH EVERY 12 HOURS FOR 10 DAYS. [facility] proMETHazin e 25 mg tablet 5-27 00:00: 00 04-16 00:00 :00 No [id number] 25mg Take 1 tablet by mouth every 6 (six) hours as needed for Nausea and Vomiting (N/V). [facility] multivitami n ( VITAMIN) tablet 4-29 00:00: 00 04-16 00:00 :00 No [id number] 1{tbl} Take 1 tablet by mouth daily. [facility] Immunizations Ordered Immunization Name Filled Immunization Name Date Status Comments Source Influenza Virus Vaccine Quad .5 mL IM 6+ MO 2019-04-14 00:00:00 Completed [facility] Influenza Virus Vaccine Quad .5 mL IM 6+ MO 2019-04-14 00:00:00 Completed [facility] Influenza Virus Vaccine Quad .5 mL IM 6+ MO 2019-04-14 00:00:00 Completed [facility] Influenza Virus Vaccine Quad .5 mL IM 6+ MO 2019-04-14 00:00:00 Completed [facility] Influenza Virus Vaccine Quad .5 mL IM 6+ MO 2019-04-14 00:00:00 Completed [facility] MMR 2019-01-26 00:00:00 Completed [facility] MMR 2019-01-26 00:00:00 Completed [facility] MMR 2019-01-26 00:00:00 Completed [facility] MMR 2019-01-26 00:00:00 Completed [facility] MMR 2019-01-26 00:00:00 Completed [facility] TDAP 2018-11-02 00:00:00 Completed [facility] TDAP 2018-11-02 00:00:00 Completed [facility] TDAP 2018-11-02 00:00:00 Completed [facility] TDAP 2018-11-02 00:00:00 Completed [facility] TDAP 2018-11-02 00:00:00 Completed [facility] HPV9 2016-04-20 00:00:00 Completed [facility] TDAP 2016-04-20 00:00:00 Completed [facility] HPV9 2016-04-20 00:00:00 Completed [facility] TDAP 2016-04-20 00:00:00 Completed [facility] HPV9 2016-04-20 00:00:00 Completed [facility] TDAP 2016-04-20 00:00:00 Completed [facility] HPV9 2016-04-20 00:00:00 Completed [facility] TDAP 2016-04-20 00:00:00 Completed [facility] HPV9 2016-04-20 00:00:00 Completed [facility] TDAP 2016-04-20 00:00:00 Completed [facility] HPV 2014-12-19 00:00:00 Completed [facility] HPV 2014-12-19 00:00:00 Completed [facility] HPV 2014-12-19 00:00:00 Completed [facility] HPV 2014-12-19 00:00:00 Completed [facility] HPV 2014-12-19 00:00:00 Completed [facility] MMR 2014-01-24 00:00:00 Completed [facility] MMR 2014-01-24 00:00:00 Completed [facility] MMR 2014-01-24 00:00:00 Completed [facility] MMR 2014-01-24 00:00:00 Completed [facility] MMR 2014-01-24 00:00:00 Completed [facility] HEPATITIS A 2013-11-20 00:00:00 Completed [facility] HPV 2013-11-20 00:00:00 Completed [facility] HEPATITIS A 2013-11-20 00:00:00 Completed [facility] HPV 2013-11-20 00:00:00 Completed [facility] HEPATITIS A 2013-11-20 00:00:00 Completed [facility] HPV 2013-11-20 00:00:00 Completed [facility] HEPATITIS A 2013-11-20 00:00:00 Completed [facility] HPV 2013-11-20 00:00:00 Completed [facility] HEPATITIS A 2013-11-20 00:00:00 Completed [facility] HPV 2013-11-20 00:00:00 Completed [facility] Influenza Virus Vaccine 2013-04-12 00:00:00 Completed [facility] Influenza Virus Vaccine 2013-04-12 00:00:00 Completed [facility] Influenza Virus Vaccine 2013-04-12 00:00:00 Completed [facility] Influenza Virus Vaccine 2013-04-12 00:00:00 Completed [facility] Influenza Virus Vaccine 2013-04-12 00:00:00 Completed [facility] Influenza Virus Vaccine 2011-09-01 00:00:00 Completed [facility] Influenza Virus Vaccine 2011-09-01 00:00:00 Completed [facility] Influenza Virus Vaccine 2011-09-01 00:00:00 Completed [facility] Influenza Virus Vaccine 2011-09-01 00:00:00 Completed [facility] Influenza Virus Vaccine 2011-09-01 00:00:00 Completed [facility] HEPATITIS A 2010-09-25 00:00:00 Completed [facility] Meningococcal Vaccine 2010-09-25 00:00:00 Completed [facility] HEPATITIS A 2010-09-25 00:00:00 Completed [facility] Meningococcal Vaccine 2010-09-25 00:00:00 Completed [facility] HEPATITIS A 2010-09-25 00:00:00 Completed [facility] Meningococcal Vaccine 2010-09-25 00:00:00 Completed [facility] HEPATITIS A 2010-09-25 00:00:00 Completed [facility] Meningococcal Vaccine 2010-09-25 00:00:00 Completed [facility] HEPATITIS A 2010-09-25 00:00:00 Completed [facility] Meningococcal Vaccine 2010-09-25 00:00:00 Completed [facility] PPD (TB) 2010-01-14 00:00:00 Completed [facility] Influenza Virus Vaccine 2010-01-14 00:00:00 Completed [facility] PPD (TB) 2010-01-14 00:00:00 Completed [facility] Influenza Virus Vaccine 2010-01-14 00:00:00 Completed [facility] PPD (TB) 2010-01-14 00:00:00 Completed [facility] Influenza Virus Vaccine 2010-01-14 00:00:00 Completed [facility] PPD (TB) 2010-01-14 00:00:00 Completed [facility] Influenza Virus Vaccine 2010-01-14 00:00:00 Completed [facility] PPD (TB) 2010-01-14 00:00:00 Completed [facility] Influenza Virus Vaccine 2010-01-14 00:00:00 Completed [facility] HEPATITIS A 2009-07-15 00:00:00 Completed [facility] Varicella (varivax)(chicken pox) 2009-07-15 00:00:00 Completed [facility] HEPATITIS A 2009-07-15 00:00:00 Completed [facility] Varicella (varivax)(chicken pox) 2009-07-15 00:00:00 Completed [facility] HEPATITIS A 2009-07-15 00:00:00 Completed [facility] Varicella (varivax)(chicken pox) 2009-07-15 00:00:00 Completed [facility] HEPATITIS A 2009-07-15 00:00:00 Completed [facility] Varicella (varivax)(chicken pox) 2009-07-15 00:00:00 Completed [facility] HEPATITIS A 2009-07-15 00:00:00 Completed [facility] Varicella (varivax)(chicken pox) 2009-07-15 00:00:00 Completed [facility] H1n1 Vaccine 2009-03-29 00:00:00 Completed [facility] H1n1 Vaccine 2009-03-29 00:00:00 Completed [facility] H1n1 Vaccine 2009-03-29 00:00:00 Completed [facility] H1n1 Vaccine 2009-03-29 00:00:00 Completed [facility] H1n1 Vaccine 2009-03-29 00:00:00 Completed [facility] DTAP 2003-05-23 00:00:00 Completed [facility] MMR 2003-05-23 00:00:00 Completed [facility] Polio (IPV/OPV) 2003-05-23 00:00:00 Completed [facility] DTAP 2003-05-23 00:00:00 Completed [facility] MMR 2003-05-23 00:00:00 Completed [facility] Polio (IPV/OPV) 2003-05-23 00:00:00 Completed [facility] DTAP 2003-05-23 00:00:00 Completed [facility] MMR 2003-05-23 00:00:00 Completed [facility] Polio (IPV/OPV) 2003-05-23 00:00:00 Completed [facility] DTAP 2003-05-23 00:00:00 Completed [facility] MMR 2003-05-23 00:00:00 Completed [facility] Polio (IPV/OPV) 2003-05-23 00:00:00 Completed [facility] DTAP 2003-05-23 00:00:00 Completed [facility] MMR 2003-05-23 00:00:00 Completed [facility] Polio (IPV/OPV) 2003-05-23 00:00:00 Completed [facility] DTAP 2001-07-25 00:00:00 Completed [facility] HIB 4 Dose Schedule 2001-07-25 00:00:00 Completed [facility] DTAP 2001-07-25 00:00:00 Completed [facility] HIB 4 Dose Schedule 2001-07-25 00:00:00 Completed [facility] DTAP 2001-07-25 00:00:00 Completed [facility] HIB 4 Dose Schedule 2001-07-25 00:00:00 Completed [facility] DTAP 2001-07-25 00:00:00 Completed [facility] HIB 4 Dose Schedule 2001-07-25 00:00:00 Completed [facility] DTAP 2001-07-25 00:00:00 Completed [facility] HIB 4 Dose Schedule 2001-07-25 00:00:00 Completed [facility] DTAP 2000-03-30 00:00:00 Completed [facility] HIB 4 Dose Schedule 2000-03-30 00:00:00 Completed [facility] Hep B, Adol or Pedi Dosage 2000-03-30 00:00:00 Completed [facility] MMR 2000-03-30 00:00:00 Completed [facility] Polio (IPV/OPV) 2000-03-30 00:00:00 Completed [facility] Varicella (varivax)(chicken pox) 2000-03-30 00:00:00 Completed [facility] DTAP 2000-03-30 00:00:00 Completed [facility] HIB 4 Dose Schedule 2000-03-30 00:00:00 Completed [facility] Hep B, Adol or Pedi Dosage 2000-03-30 00:00:00 Completed [facility] MMR 2000-03-30 00:00:00 Completed [facility] Polio (IPV/OPV) 2000-03-30 00:00:00 Completed [facility] Varicella (varivax)(chicken pox) 2000-03-30 00:00:00 Completed [facility] DTAP 2000-03-30 00:00:00 Completed [facility] HIB 4 Dose Schedule 2000-03-30 00:00:00 Completed [facility] Hep B, Adol or Pedi Dosage 2000-03-30 00:00:00 Completed [facility] MMR 2000-03-30 00:00:00 Completed [facility] Polio (IPV/OPV) 2000-03-30 00:00:00 Completed [facility] Varicella (varivax)(chicken pox) 2000-03-30 00:00:00 Completed [facility] DTAP 2000-03-30 00:00:00 Completed [facility] HIB 4 Dose Schedule 2000-03-30 00:00:00 Completed [facility] Hep B, Adol or Pedi Dosage 2000-03-30 00:00:00 Completed [facility] MMR 2000-03-30 00:00:00 Completed [facility] Polio (IPV/OPV) 2000-03-30 00:00:00 Completed [facility] Varicella (varivax)(chicken pox) 2000-03-30 00:00:00 Completed [facility] DTAP 2000-03-30 00:00:00 Completed [facility] HIB 4 Dose Schedule 2000-03-30 00:00:00 Completed [facility] Hep B, Adol or Pedi Dosage 2000-03-30 00:00:00 Completed [facility] MMR 2000-03-30 00:00:00 Completed [facility] Polio (IPV/OPV) 2000-03-30 00:00:00 Completed [facility] Varicella (varivax)(chicken pox) 2000-03-30 00:00:00 Completed [facility] DTAP 1999 00:00:00 Completed [facility] HIB 4 Dose Schedule 1999 00:00:00 Completed [facility] Polio (IPV/OPV) 1999 00:00:00 Completed [facility] DTAP 1999 00:00:00 Completed [facility] HIB 4 Dose Schedule 1999 00:00:00 Completed [facility] Polio (IPV/OPV) 1999 00:00:00 Completed [facility] DTAP 1999 00:00:00 Completed [facility] HIB 4 Dose Schedule 1999 00:00:00 Completed [facility] Polio (IPV/OPV) 1999 00:00:00 Completed [facility] DTAP 1999 00:00:00 Completed [facility] HIB 4 Dose Schedule 1999 00:00:00 Completed [facility] Polio (IPV/OPV) 1999 00:00:00 Completed [facility] DTAP 1999 00:00:00 Completed [facility] HIB 4 Dose Schedule 1999 00:00:00 Completed [facility] Polio (IPV/OPV) 1999 00:00:00 Completed [facility] HIB 4 Dose Schedule 1999 00:00:00 Completed [facility] Polio (IPV/OPV) 1999 00:00:00 Completed [facility] HIB 4 Dose Schedule 1999 00:00:00 Completed [facility] Polio (IPV/OPV) 1999 00:00:00 Completed [facility] HIB 4 Dose Schedule 1999 00:00:00 Completed [facility] Polio (IPV/OPV) 1999 00:00:00 Completed [facility] HIB 4 Dose Schedule 1999 00:00:00 Completed [facility] Polio (IPV/OPV) 1999 00:00:00 Completed [facility] HIB 4 Dose Schedule 1999 00:00:00 Completed [facility] Polio (IPV/OPV) 1999 00:00:00 Completed [facility] DTAP 1999 00:00:00 Completed [facility] Hep B, Adol or Pedi Dosage 1999 00:00:00 Completed [facility] DTAP 1999 00:00:00 Completed [facility] Hep B, Adol or Pedi Dosage 1999 00:00:00 Completed [facility] DTAP 1999 00:00:00 Completed [facility] Hep B, Adol or Pedi Dosage 1999 00:00:00 Completed [facility] DTAP 1999 00:00:00 Completed [facility] Hep B, Adol or Pedi Dosage 1999 00:00:00 Completed [facility] DTAP 1999 00:00:00 Completed [facility] Hep B, Adol or Pedi Dosage 1999 00:00:00 Completed [facility] Hep B, Adol or Pedi Dosage 1999 00:00:00 Completed [facility] Hep B, Adol or Pedi Dosage 1999 00:00:00 Completed [facility] Hep B, Adol or Pedi Dosage 1999 00:00:00 Completed [facility] Hep B, Adol or Pedi Dosage 1999 00:00:00 Completed [facility] Hep B, Adol or Pedi Dosage 1999 00:00:00 Completed [facility] H1n1 Vaccine Unknown Completed [facility] HEPATITIS A Unknown Completed [facility] Varicella (varivax)(chicken pox) Unknown Completed [facility] PPD (TB) Unknown Completed [facility] Influenza Virus Vaccine Unknown Completed [facility] DTAP Unknown Completed [facility] HIB 4 Dose Schedule Unknown Completed [facility] Hep B, Adol or Pedi Dosage Unknown Completed [facility] Polio (IPV/OPV) Unknown Completed [facility] HPV Unknown Completed [facility] Meningococcal Vaccine Unknown Completed [facility] HPV9 Unknown Completed [facility] TDAP Unknown Completed [facility] MMR Unknown Completed [facility] Influenza Virus Vaccine Quad .5 mL IM 6+ MO (FLUZONE/FLULAVAL/F LUARIX) Unknown Completed [facility] Vital Signs Vital Name Observation Time Observation Value Comments S ource Systolic blood pressure 2022-04-16 16:22:00 110 mm[Hg] [facility] Diastolic blood pressure 2022-04-16 16:22:00 60 mm[Hg] [facility] Heart rate 2022-04-16 16:22:00 96 /min [facility] Body temperature 2022-04-16 16:22:00 37.06 Evy [facility] Respiratory rate 2022-04-16 16:22:00 18 /min [facility] Body height 2022-04-16 16:22:00 157.5 cm [facility] Body weight 2022-04-16 16:22:00 80.485 kg [facility] BMI 2022-04-16 16:22:00 32.45 kg/m2 [facility] Systolic blood pressure 2021-11-03 14:03:00 110 mm[Hg] [facility] Diastolic blood pressure 2021-11-03 14:03:00 63 mm[Hg] [place] [facility] Heart rate 2021-11-03 14:03:00 108 /[facility] Body temperature 2021-11-03 14:03:00 36 Evy [facility] Respiratory rate 2021-11-03 14:03:00 18 /min [facility] Body height 2021-11-03 14:03:00 157.5 cm [facility] Body weight 2021-11-03 14:03:00 76.658 kg [facility] BMI 2021-11-03 14:03:00 30.91 kg/m2 [facility] Procedures Procedure Date / Time Performed Performing Clinicia n Source REPORT OF 2022-04-16 06:01:00 Doctor Enrrique garza, [place] [facility] POCT URINALYSIS 2022-04-16 00:00:00 Meme Trejo [facility] POCT TEST 2022-04-16 00:00:00 Armen Trejo [facility] Encounters Start Date/Time End Date/Time Encounter Type Admission Type Attending Clinicians Care Facility Care Department Encounter ID Source 2022-12-04 10:27:32 Outpatient [facility] [id number] [facility] 2023-04-15 10:45:00 2023-04-15 10:45:00 Outpatient YULI HERRMANN [facility] [id number] [facility] 2022-10-13 15:52:44 2022-10-13 15:52:44 Outpatient [facility] [id number] Rolf Terri Garret 2022-06-08 10:00:00 2022-06-08 10:00:00 Outpatient SHAYNE RAMIREZ [facility] [id number] [facility] 2022-05-28 14:00:00 2022-05-28 14:00:00 Outpatient R YUMIKO CASTELLON [facility] [id number] [facility] 2022-05-14 10:45:00 2022-05-14 10:45:00 Outpatient R YUMIKO CASTELLON [facility] [id number] [facility] 2022-04-29 14:30:00 2022-04-29 14:30:00 Outpatient R [facility] [id number] [facility] 2022-04-21 00:00:00 2022-04-21 00:00:00 Case Management Yumiko Castellon [facility] CONTRACT [facility] 1..114 [id number] [facility] 2022-04-20 00:00:00 2022-04-20 00:00:00 Telephone Yumiko Castellon [facility] CONTRACT [facility] 1..114 [id number] [facility] 2022-04-16 10:45:00 2022-04-16 11:08:07 Outpatient R MEME TREJO [facility] [id number] [facility] 2022-04-16 10:45:00 2022-04-16 11:08:07 Initial Visit Meme Trejo Brenda A [facility] LAB[facility] CONTRACT [facility] [id number] [facility] 2022-04-16 00:00:00 2022-04-16 00:00:00 Orders Only Doctor Unassigned, [place] [facility] [id number] [facility] 2021-12-24 09:45:00 2021-12-24 09:45:00 Outpatient R CHELO CAREY [facility] [id number] [facility] 2021-11-12 13:00:00 2021-11-12 13:00:00 Outpatient R MEME TREJO [facility] [id number] [facility] 2021-11-07 13:00:00 2021-11-07 13:00:00 Outpatient P [facility] [id number] [facility] 2021-11-03 08:45:00 2021-11-03 10:55:43 Routine Visit Trimester, [facility] Res-[address] [place] [address] 1..840.114 350.1.13.10 4.2.7.2.686 [id number] [facility] 2021-11-03 08:45:00 2021-11-03 10:55:43 Outpatient YVETTE KRAUSE [facility] [id number] [facility] 2021-11-03 08:45:00 2021-11-03 08:45:00 Outpatient YVETTE KRAUSE [facility] [id number] [facility] 2021-10-31 09:00:00 2021-10-31 09:15:00 Routine Visit Trimester, [facility] .840.114 350.1.13.10 4.2.7.2.686 [id number] [facility] 2021-10-31 09:00:00 2021-10-31 09:00:00 Outpatient YVETTE KRAUSE [facility] [id number] [facility] 2021-10-29 11:00:00 2021-10-29 11:42:46 Outpatient R MEME TREJO [facility] [id number] [facility] 2021-10-29 11:00:00 2021-10-29 11:42:46 Routine Visit Meme Trejo [facility] LABOR CONTRACT [facility] 1.2.840.114 350.1.13.10 4.2.7.2.686 [id number] [facility] 2021-10-27 12:58:00 2021-10-27 16:35:00 Emergency X NATALIYA SPRINGER [facility] ERT [id number] [facility] 2021-10-27 12:58:00 2021-10-27 16:35:00 Emergency Nataliya Springer [facility] 1.2.840.114 350.1.13.10 4.2.7.2.686 [id number] [facility] 2021-10-27 12:58:00 2021-10-27 16:35:00 Emergency X NATALIYA SPRINGER [facility] ERT [id number] [facility] 2021-10-27 00:00:00 2021-10-27 00:00:00 Telephone Meme Trejo [facility] LABOR CONTRACT [facility] 1.2.840.114 350.1.13.10 4.2.7.2.686 [id number] [facility] 2021-10-10 14:45:00 2021-10-10 14:45:00 Outpatient R MEME TREJO [facility] [id number] [facility] 2021-10-10 14:45:00 2021-10-10 14:45:00 Outpatient R MEME TREJO [facility] [id number] [facility] 2021-10-09 13:45:00 2021-10-09 13:45:00 Outpatient R MEME TREJO [facility] [id number] [facility] 2021-10-03 16:00:00 2021-10-03 16:15:00 Routine Visit Meme Trejo Malena [facility] LABOR CONTRACT [facility] 1.2.840.114 350.1.13.10 4.2.7.2.686 [id number] [facility] 2021-10-03 16:00:00 2021-10-03 16:00:00 Outpatient R NEIL MEME [facility] [id number] [facility] 2021-10-03 16:00:00 2021-10-03 16:00:00 Outpatient R NEIL MEME [facility] [id number] [facility] 2021-09-09 23:48:00 2021-09-10 01:57:00 Emergency X Bryan BAUER [facility] ERT [id number] [facility] 2021-09-09 23:48:00 2021-09-10 01:57:00 Emergency Bryan Bauer [facility] 1.2.840.114 350.1.13.10 4.2.7.2.686 [id number] [facility] 2021-09-05 14:15:00 2021-09-05 15:20:42 Initial Visit Meme Trejo Malena [facility] LABOR CONTRACT [facility] 1.2.840.114 350.1.13.10 4.2.7.2.686 [id number] [facility] 2021-09-05 14:15:00 2021-09-05 15:20:42 Outpatient R NEIL MMEE [facility] [id number] [facility] 2021-09-05 14:15:00 2021-09-05 14:15:00 Outpatient R NEIL MEME [facility] [id number] [facility] 2021-09-05 13:45:00 2021-09-05 14:11:27 Outpatient R MEME TREJO [facility] [id number] [facility] 2021-09-04 00:00:00 2021-09-04 00:00:00 Telephone Meme Trejo [facility] LABOR CONTRACT [facility] 1.2.840.114 350.1.13.10 4.2.7.2.686 [id number] [facility] 2021-08-25 00:00:00 2021-08-25 00:00:00 Telephone Neil Meme Guy [facility] LABOR CONTRACT [facility] 1.2.840.114 350.1.13.10 4.2.7.2.686 [id number] [facility] 2021-08-22 08:00:00 2021-08-22 09:01:20 Office Visit Meme Trejo [facility] LABOR CONTRACT [facility] 1.2840.114 350.1.13.10 4.2.7.2.686 [id number] [facility] 2021-08-22 08:00:00 2021-08-22 09:01:20 Outpatient R MEME TREJO [facility] [id number] [facility] 2021-08-22 08:00:00 2021-08-22 08:00:00 Outpatient R MEME TREJO [facility] [id number] [facility] 2021-08-22 00:00:00 2021-08-22 00:00:00 Orders Only Doctor Unassigned, [place] [facility] 1..114 350.1.13.10 4.2.7.2.686 [id number] [facility] 2021-08-22 00:00:00 2021-08-22 00:00:00 Letter (Out) Meme Trejo [facility] 1.20.114 350.1.13.10 4.2.7.2.686 [id number] [facility] 2021-08-13 10:28:00 2021-08-13 11:01:00 Emergency X JENNI OSEI [facility] ERT [id number] [facility] 2021-08-13 10:28:00 2021-08-13 11:01:00 Emergency Jenni Osei [facility] 1.0.114 350.1.13.10 4.2.7.2.686 [id number] [facility] 2021-08-13 00:00:00 2021-08-13 00:00:00 Orders Only Doctor Unassigned, [place] [facility] 1..114 350.1.13.10 4.2.7.2.686 [id number] [facility] 2020-11-25 09:00:00 2020-11-25 09:00:00 Outpatient R [facility] [id number] [facility] 2020-11-22 10:45:00 2020-11-22 11:00:00 Telemedici ne Visit Trimester, [facility] Res-1st Shayne Mitchell [facility] 1..114 350.1.13.10 4.2.7.2.686 [id number] [facility] 2020-11-22 10:45:00 2020-11-22 10:45:00 [facility] [id number] [facility] 2020-11-08 10:00:57 2020-11-08 10:35:05 Routine Visit Trimester, [facility] Res-1st Pawan [facility] 1..114 350.1.13.10 4.2.7.2.686 [id number] [facility] 2020-11-08 10:00:00 2020-11-08 10:00:00 Outpatient R [facility] [id number] [facility] 2020-11-06 16:45:00 2020-11-06 16:45:00 Outpatient DAISHA THOMASLAWSarita [facility] [id number] [facility] 2020-11-06 00:00:00 2020-11-06 00:00:00 Telephone Lázaro Chelo Lomax [facility] LABOR CONTRACT [facility] 1.2.840.114 350.1.13.10 4.2.7.2.686 [id number] [facility] 2020-11-05 15:59:30 2020-11-05 16:27:56 Office Visit CareyChelo [facility] LABOR CONTRACT [facility] 1.2.840.114 350.1.13.10 4.2.7.2.686 [id number] [facility] 2020-11-05 16:00:00 2020-11-05 16:00:00 Outpatient Dami CAREY CHELO [facility] [id number] [facility] 2020-11-05 00:00:00 2020-11-05 00:00:00 Telephone Daisha Careygia [facility] LABOR CONTRACT ANA[facility]ST [facility] 1.2.840.114 350.1.13.10 4.2.7.2.686 [id number] [facility] 2020-10-29 16:30:00 2020-10-29 16:30:00 Outpatient Dami CAREYCHELO [facility] [id number] [facility] 2020-10-21 15:30:00 2020-10-21 15:30:00 Outpatient Dami CAREYCHELO [facility] [id number] [facility] 2020-10-18 15:09:36 2020-10-18 15:26:25 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, [facility] Chelo Carey [facility] LABOR CONTRACT [facility] 1.840.114 350.1.13.10 4.2.7.2.686 [id number] [facility] 2020-10-18 15:15:00 2020-10-18 15:15:00 Outpatient R CHELO CAREY [facility] [id number] [facility] 2020-10-18 00:00:00 2020-10-18 00:00:00 Telephone Chelo Carey [facility] LABOR CONTRACT [facility] 1.84.114 350.1.13.10 4.2.7.2.686 [id number] [facility] 2020-10-14 10:45:00 2020-10-14 10:45:00 Outpatient R [facility] [id number] [facility] 2020-10-11 00:00:00 2020-10-11 00:00:00 Orders Only Doctor Unassigned, [place] [facility] 1.114 350.1.13.10 4.2.7.2.686 [id number] [facility] 2020-10-11 00:00:00 2020-10-11 00:00:00 Telephone Chelo Carey [facility] LABOR CONTRACT [facility] 1..114 350.1.13.10 4.2.7.2.686 [id number] [facility] 2020-10-03 00:00:00 2020-10-03 00:00:00 Patient Secure Msg Doctor Unassigned, [place] [facility] 1.2.114 350.1.13.10 4.2.7.2.686 [id number] [facility] 2020-10-01 09:29:23 2020-10-01 11:47:08 Routine Visit Trimester, [facility] [address] Villaltanedra Soni [facility] 1.114 350.1.13.10 4.2.7.2.686 [id number] [facility] 2020-10-01 09:30:00 2020-10-01 09:30:00 Outpatient R [facility] [id number] [facility] 2020-10-01 00:00:00 2020-10-01 00:00:00 Orders Only Doctor Unassigned, [place] [facility] 1..114 350.1.13.10 4.2.7.2.686 [id number] [facility] 2020-09-30 09:48:35 2020-09-30 10:19:37 Routine Visit Chelo Carey [facility] LABOR CONTRACT [facility] 1..114 350.1.13.10 4.2.7.2.686 [id number] [facility] 2020-09-30 09:24:35 2020-09-30 09:48:43 Forest Ecologist Visit Ultrasound, OliverMeme Elise George [facility] LABOR CONTRACT [facility] 1..114 350.1.13.10 4.2.7.2.686 [id number] [facility] 2020-09-30 08:47:58 2020-09-30 09:02:58 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 LABOR CONTRACT [facility] 1.2.114 350.1.13.10 4.2.7.2.686 [id number] [facility] 2020-09-30 08:30:00 2020-09-30 08:30:00 Outpatient R [facility] [id number] [facility] 2020-09-30 00:00:00 2020-09-30 00:00:00 Telephone Chelo Carey [facility] LABOR CONTRACT [facility] 1.2840.114 350.1.13.10 4.2.7.2.686 [id number] [facility] 2020-09-25 00:00:00 2020-09-25 00:00:00 Telephone Chelo Carey [facility] LABOR CONTRACT [facility] 1.2840.114 350.1.13.10 4.2.7.2.686 [id number] [facility] 2020-09-23 14:13:53 2020-09-23 15:44:35 Initial Visit Chelo Carey [facility] LABOR CONTRACT [facility] 1.2840.114 350.1.13.10 4.2.7.2.686 [id number] [facility] 2020-09-23 14:00:00 2020-09-23 14:00:00 Outpatient R CAREY, ROSGIA [facility] [id number] [facility] 2020-09-23 00:00:00 2020-09-23 00:00:00 Orders Only Doctor Unassigned, [place] [facility] 1.2.114 350.1.13.10 4.2.7.2.686 [id number] [facility] 2020-07-30 00:00:00 2020-07-30 00:00:00 Patient Outreach Trey Laird [facility] 1.284.114 350.1.13.10 4.2.7.2.686 [id number] [facility] 2020-04-25 16:00:00 2020-04-25 16:00:00 Outpatient R EMILY SPRINGER [facility] [id number] [facility] 2020-02-28 13:30:00 2020-02-28 13:30:00 Outpatient R [facility] [id number] [facility] 2019-11-28 16:05:10 2019-11-28 16:35:57 [facility] LABOR CONTRACT [facility] 1.2840.114 350.1.13.10 4.2.7.2.686 [id number] [facility] 2019-11-28 16:05:10 2019-11-28 16:35:57 Nurse Visit Visit, Keyur Nurse [facility] LABOR CONTRACT [facility] 1.2840.114 350.1.13.10 4.2.7.2.686 [id number] 107 [id number] 2019-11-28 14:00:00 2019-11-28 14:00:00 Outpatient R EMILY SPRINGER [facility] [id number] [facility] 2019-11-27 00:00:00 2019-11-27 00:00:00 Telephone Meme Trejo [facility] LABOR CONTRACT [facility] 1..114 350.1.13.10 4.2.7.2.686 [id number] [facility] 2019-11-27 00:00:00 2019-11-27 00:00:00 Telephone Meme Trejo [facility] LABOR CONTRACT [facility] 1.2840.114 350.1.13.10 4.2.7.2.686 [id number] 2019-11-24 12:47:22 2019-11-24 13:38:45 Office Visit Meme Trejo [facility] LABOR CONTRACT [facility] 1.2840.114 350.1.13.10 4.2.7.2.686 [id number] [facility] 2019-11-24 12:45:00 2019-11-24 12:45:00 Outpatient R MEME TREJO [facility] [id number] [facility] 2019-11-24 00:00:00 2019-11-24 00:00:00 Telephone Meme Trejo [facility] LABOR CONTRACT [facility] 1.2.840.114 350.1.13.10 4.2.7.2.686 [id number] [facility] 2019-11-24 00:00:00 2019-11-24 00:00:00 Orders Only Doctor Unassigned, [place] [facility] 1.2840.114 350.1.13.10 4.2.7.2.686 [id number] [facility] 2019-11-24 00:00:00 2019-11-24 00:00:00 Letter (Out) Meme Trejo [facility] LABOR CONTRACT [facility] 1.2.840.114 350.1.13.10 4.2.7.2.686 [id number] [facility] 2019-11-09 16:20:00 2019-11-09 16:20:00 Outpatient R RIK JDUD [facility] [id number] [facility] 2019-01-25 09:10:00 2019-01-26 20:45:00 Hospital Encounter PalmaLuz Marina Grzeg[facility] 1.2.840.114 350.1.13.10 4.2.7.2.686 [id number] [facility] 2019-01-25 00:00:00 2019-01-25 00:00:00 Orders Only Doctor Unassigned, [place] [facility] 1.2.840.114 350.1.13.10 4.2.7.2.686 [id number] [facility] 2019-01-18 13:13:34 2019-01-18 14:03:06 Routine Visit Meme Trejo [facility] LABOR CONTRACT [facility] 1.2.840.114 350.1.13.10 4.2.7.2.686 [id number] [facility] 2019-01-11 14:56:31 2019-01-11 15:42:02 Routine Visit Meme Trejo [facility] LABOR CONTRACT [facility] 1.2.840.114 350.1.13.10 4.2.7.2.686 [id number] [facility] 2019-01-04 10:45:17 2019-01-04 11:24:54 Routine Visit Meme Trejo [facility] LABOR CONTRACT [facility] 1.2.840.114 350.1.13.10 4.2.7.2.686 [id number] [facility] 2018-12-15 13:22:12 2018-12-15 13:41:21 Routine Visit Meme Trejo [facility] LABOR CONTRACT [facility] 1.2.840.114 350.1.13.10 4.2.7.2.686 [id number] [facility] Results Test Description Test Time Test Comments Results Result Co mments [id number]:16:00* Test Item Value Reference Range Interpretation Comme nts POCT PREG (test code = 1605) Positive On board controls acceptable with C Line (test code = 3574) Yes POCT PREG LOT # (test code = 3575) POCT PREG TEST DATE ( test code = 3576) [id number] 16:16:00* Test Item Value Reference Range Interpretation Comme nts POCT PREG (test code = 1605) Positive On board controls acceptable with C Line (test code = 3574) Yes POCT PREG LOT # (test code = 3575) POCT PREG TEST DATE ( test code = 3576) [facility] [id number] 16:16:00* Test Item Value Reference Range Interpretation Comme nts POCT PREG (test code = 1605) Positive On board controls acceptable with C Line (test code = 3574) Yes POCT PREG LOT # (test code = 3575) POCT PREG TEST DATE ( test code = 3576) [facility] URINALYSIS W SPECIFIC [id number] 16:13:00* Test Item Value Reference Range Interpretation [...] U APPEAR (test code = 3267) . [facility] URINALYSIS W SPECIFIC [id number] 16:13:00* Test Item Value Reference Range Interpretation [...] U APPEAR (test code = 3267) . [facility] URINALYSIS W SPECIFIC [id number] 16:13:00* Test Item Value Reference Range Interpretation [...] U APPEAR (test code = 3267) . [facility] URINALYSIS W SPECIFIC [id number] 16:13:00* Test Item Value Reference Range Interpretation [...] lorin POCT U BLD (test code = 7407) negative Negative - Negati ve POCT U COLOR (test code = 7766) yellow POCT U APPEAR (test code = 3619) . [facility]
--- NOTE | 2024-04-12 09:45 | RAD REPORT ---
EXAMINATION: XR RIGHT HUMERUS HISTORY: PAIN RIGHT TECHNIQUE: Multiple views of the right humerus were obtained. COMPARISON: None FINDINGS: No bone or joint abnormality detected. No suspicious focal osseous abnormality. Joint align ment is maintained. Surrounding soft tissues are unremarkable.
--- NOTE | 2024-04-12 10:09 | EDPHYS ---
Physician Documentation [facility] Name: Guillermina Carlson Age: 24 yrs Sex: Female : 2000 Arrival Date: 04/12/2024 Time: 08:24 Bed 10 Private MD: ED Physician Clovis Solis HPI: 04/12 10:03 This 24 yrs old Female presents to ER via Ambulatory with complaints of Fall rn Injury - x2wks ago, Shoulder Pain - Right. 10:03 Details of fall: The patient fell from an upright position. Onset: The symptoms/episode rn began/occurred 2 week(s) ago. Associated injuries: The patient sustained right shoulder. Severity of symptoms: At their worst the symptoms were mild, in the emergency department the symptoms are unchanged. The patient has not experienced similar symptoms in the past. Patient reports fall on outstretched arm 2 weeks ago. Still having pain but slowly improving. Isolated injury to right shoulder. 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 - Infectious Disease History:: Denies. - Social history:: Smoking status: Patient denies any tobacco usage or history of. - Family history:: not pertinent. - Hospitalizations: : No recent hospitalization is reported. ROS: 10:03 Constitutional: Negative for fever, chills, and weight loss, Neck: Negative for injury, rn pain, and swelling, Cardiovascular: Negative for chest pain, palpitations, and edema, Respiratory: Negative for shortness of breath, cough, wheezing, and pleuritic chest pain, Back: Negative for injury and pain, MS/Extremity: Positive for right shoulder injury and pain Neuro: Negative for headache, weakness, numbness, tingling, and seizure, Exam: 10:03 Constitutional: This is a well developed, well nourished patient who is awake, alert, rn and in no acute distress. Head/Face: Normocephalic, atraumatic. Neck: Trachea midline, no vertebral point tenderness. MS/ Extremity: Pulses equal, no cyanosis. Neurovascular intact. Full, normal range of motion. Equal circumference. Vital Signs: 08:34 BP 117 / 67; Pulse 84; Resp 16; Temp 97.7; Pulse Ox 100% ; Weight 74.39 kg; Height 5 iw ft. 2 in. ; Pain 2; 08:34 Body Mass Index 30.00 (74.39 kg, 157.48 cm) iw 08:34 Pain Scale: Adult iw MDM: 08:28 Medical Screening Exam initiated rn 10:08 Differential diagnosis: contusion, fracture, sprain, strain. Data reviewed: vital rn signs, nurses notes, radiologic studies, plain films, and as a result, I will discharge patient. Counseling: I had a detailed discussion with the patient and/or guardian regarding the historical points, exam findings, and any diagnostic results supporting the discharge/admit diagnosis, radiology results, the need for outpatient follow up, to return to the emergency department if symptoms worsen or persist or if there are any questions or concerns that arise at home. Special discussion: I discussed with the patient/guardian in detail that at this point there is no indication for admission to the hospital. It is understood, however, that if the symptoms persist or worsen the patient needs to return immediately for re-evaluation. Further emergent ED testing is not indicated at this point in time. I discussed with the patient/guardian in detail the need to arrange with the PCP or specialist further outpatient testing, MRI, Based on the history and exam findings, there is no indication for further emergent testing or inpatient evaluation. I discussed with the patient/guardian the need to see the orthopedic surgeon for further evaluation of the symptoms. 04/12 08:33 Order name: XRAY Humerus RIGHT; Complete Time: 09:46 rn Administered Medications: No medications were administered Disposition Summary: 04/12/24 10:09 Discharge Ordered Notes: Location: Home rn Problem: an ongoing problem rn Symptoms: have improved rn Condition: Stable rn Diagnosis - Other sprain of right shoulder joint rn Followup: rn - With: Private Physician - When: As needed - Reason: Recheck today's complaints, Re-evaluation by your physician Discharge Instructions: - Discharge Summary Sheet rn - Shoulder Sprain rn Forms: - Medication Reconciliation Form rn - Antibiotic immigration attorney - Prescription Opioid Use rn - Patient Portal Instructions rn - Leadership Thank You Letter rn Signatures: Dispatcher [facility] Melissa Gonsales RN RN iw Clovis Solis MD MD rn
--- NOTE | 2024-04-12 10:09 | ER ---
Nurse's Notes [facility]ly [facility] Name: Guillermina Carlson Age: 24 yrs Sex: Female : 2000 Arrival Date: 04/12/2024 Time: 08:24 Bed 10 Private MD: Diagnosis: Other sprain of right shoulder joint Presentation: 04/12 08:34 Chief complaint: Patient states: tripped an fell 2 weeks ago , fell on right arm, still iw having pain, worse with movement. Coronavirus screen: At this time, the client does not indicate any symptoms associated with coronavirus-19. Ebola Screen: No symptoms or risks identified at this time. Initial Sepsis Screen: Does the patient meet any 2 criteria? No. Patient's initial sepsis screen is negative. Does the patient have a suspected source of infection? No. Patient's initial sepsis screen is negative. Risk Assessment: Do you want to hurt yourself or someone else? Patient reports no desire to harm self or others. 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 - Infectious Disease History:: Denies. - Social history:: Smoking status: Patient denies any tobacco usage or history of. - Family history:: not pertinent. - Hospitalizations: : No recent hospitalization is reported. Screenin:04 [facility] ED Fall Risk Assessment (Adult) History of falling in the last 3 months, iw including since admission Yes- single mechanical fall (1 pt) Confusion or Disorientation No (0 pts) Intoxicated or Sedated No (0 pts) Impaired Gait No (0 pts) Mobility Assist Device Used No (0 pt) Altered Elimination No (0 pt) Score/Fall Risk Level 0 - 2 = Low Risk Oriented to surroundings, Maintained a safe environment. Abuse screen: Denies injuries from another. Nutritional screening: No deficits noted. Tuberculosis screening: No symptoms or risk factors identified. Assessment: 08:42 General: Appears in no apparent distress. Behavior is calm, cooperative. Pain:. iw 09:03 Neuro: Level of Consciousness is awake, alert, obeys commands, Oriented to person, iw place, time, situation, Moves all extremities. Full function. Cardiovascular: Patient's skin is warm and dry. Respiratory: Respiratory effort is even, unlabored, Respiratory pattern is regular. Derm: Skin is intact, is healthy with good turgor. Musculoskeletal: Range of motion: limited in right shoulder and right elbow. Vital Signs: 08:34 BP 117 / 67; Pulse 84; Resp 16; Temp 97.7; Pulse Ox 100% ; Weight 74.39 kg; Height 5 iw ft. 2 in. ; Pain 2; 08:34 Body Mass Index 30.00 (74.39 kg, 157.48 cm) iw 08:34 Pain Scale: Adult iw ED Course: 08:27 Patient arrived in ED. ra3 08:27 Clovis Solis MD is Attending Physician. rn 08:35 Triage completed. iw 08:42 Melissa Jay RN is Primary Nurse. iw 09:09 XRAY Humerus RIGHT In Process Unspecified. EDMS Administered Medications: No medications were administered Medication: 09:04 VIS not applicable for this client. iw Outcome: 10:09 Discharge ordered by . rn 10:22 Patient left the ED. iw Signatures: Dispatcher [employer] EDMS Melissa Jay RN RN Clovis Solis MD MD rn Alva, Ruby ra3
[2024-04-12 15:47] VITALS: BP 117/67; TEMP 97.7; O2SAT 100
== END 2024-04-12 10:22 | disposition home or self-care (01) ==
LOC: ER 08:24
DX: S43.491A Other sprain of right shoulder joint, initial encounter (principal); W18.30XA Fall on same level, unspecified, initial encounter
CPT/HCPCS: 99281

== ENCOUNTER 2024-06-30 08:09 | Emergency (ER) | payer OTHER, SELFPAY ==
--- OUTSIDE RECORDS SUMMARY | 2024-06-30 08:14 | XMS REPORT | Continuity of Care Document ---
Author Name Unknown Address [address] [facility] [address] [place] [address] [facility] thconnect Address [address] [facility] [address] [place] [address] Care Team Providers Care Talent Buyer Name Role Phone Chelo Olivier Primary Care Physician Un available YULI HERRMANN Attending Clinician Unavailable SHAYNE MITCHELL Attending Clinician Unavailable YUMIKO CASTELLON Attending Clinician Unavaila ble MEME TREJO Attending Clinician Unavail able Yumiko Castellon CNM Attending Clinician [phone] Neil Meme CANCHOLA Attending Clinician + Doctor Unassigned, Luis M. Cintron Attending Clinician U navailable CHELO CAREY Attending Clinician Unavailab mariama Abreu, [facility] Attending Clinician Unavailable Yvette Leiva MD Attending Clinician [phone] YVETTE LEIVA Attending Clinician Unavailable NATALIYA SPRINGER Attending Clinician Unavailab Nataliya Alvarado DO Attending Clinician [phone] Bryan BAUER Attending Clinician Unavailable Bryan Jansen Attending Clinician [phone] JENNI OSEI Attending Clinician Unavailable Jenni Osei DO Attending Clinician [phone] Shayne Mitchell MD Attending Clinician [phone] Pawan MD, Allen L Attending Clinician [phone] Lázaro BINDERY TECHNICIAN, Chelo R Attending Clinician + [phone] Lab, [facility] Attending Clinician Unavailable Ultrasound, Fausto Attending Clinician Unavailsarita Mckeon MD, Hernan R Attending Clinician [phone] Trey Laird DO Attending Clinician [phone] EMILY SPRINGER Attending Clinician Unavailabl e Visit, [facility] Nurse Attending Clinician Jesús ROBERTOP, Emily Guzman Attending Clinician [phone] RIK JUDD Attending Clinician Unavailable Louie REYES, Luz Marina Lantigua Attending Clinician [phone] NATALIYA SPRINGER Admitting Clinician Unavailab mariama Palma MD, Luz Marina Lantigua Admitting Clinician [phone] Payers Payer Name Policy Type Policy Number Effective Date Expirati on Date Source [facility] [id number] 2020 00:00:00 [place] [id number] 2020 00:00:00 MEDICAID PENDING PENDING 2020 00:00:00 Problems Condition Name Condition Details Condition Category Status Onset Date Resolution Date Last Treatment Date Treating Clinician Comments Source Supervisio n of high-risk Supervisio n of high-risk Disease Active 2021-05 2-08 00:00: 00 [facility] Herpes infection in Herpes infection in Disease Active 10-03 00:00: 00 Overview: Formattin g of this note might be different from the original. Suppressi on at 36 weeks [facility] Susceptibl e to varicella (non-immun e), currently Susceptibl e to varicella (non-immun e), currently Disease Active 03 00:00: 00 Overview: Formattin g of this note might be different from the original. Address pp [facility] Multiparit y Multiparit y Disease Active 09-05 00:00: 00 [facility] History of miscarriag e History of miscarriag e Disease Active 09-05 00:00: 00 Overview: Formattin g of this note might be different from the original. x2 [facility] of unknown anatomic location of unknown anatomic location Disease Active 09-05 00:00: 00 [facility] Obesity in Obesity in Disease Active 2018-05 2-06 00:00: 00 [facility] Anemia associated with acute blood loss Anemia associated with acute blood loss Disease Active 01-26 00:00: 00 [facility] Rubella non-immune status, antepartum Rubella non-immune status, antepartum Disease Active 06-09 00:00: 00 Overview: Formattin g of this note might be different from the original. Address pp [facility] Generalize d anxiety disorder Generalize d anxiety disorder Disease Active 01-07 00:00: 00 [facility] Allergies, Adverse Reactions, Alerts Allergy Name Allergy Type Status Severity Reaction(s) Onset Date Inactive Date Treating Clinician Comments Source NO KNOWN ALLERGIE S Drug Class Active [facility] Social History Social Habit Start Date Stop Date Quantity Comments Source ASSERTION 2022-03-25 00:00:00 [facility] History SDOH Alcohol Frequency [facility] History SDOH Alcohol Std Drinks [facility] History SDOH Alcohol Binge [facility] Exposure to SARS-CoV-2 (event) 2022-04-06 00:00:00 2022-04-16 10:21:00 Not sure [facility] Alcohol Comment 2021-08-22 00:00:00 2021-08-22 00:00:00 social [facility] History of Social function 2021-08-22 00:00:00 2021-08-22 00:00:00 [facility] Alcohol intake 2020-10-01 00:00:00 2020-10-01 00:00:00 0 /d [facility] Tobacco use and exposure 2020-09-23 00:00:00 2020-09-23 00:00:00 Smokeless tobacco non-user [facility] Tobacco Comment 2020-09-23 00:00:00 2020-09-23 00:00:00 quit 2 months ago- 2-3 cigarrettes few days [facility] History of tobacco use 2018-04-14 00:00:00 Cigarette Smoker [facility] Sex Assigned At 2000 00:00:00 2000 00:00:00 [facility] Smoking Status Start Date Stop Date Source Ex-smoker 2020-09-23 00:00:00 2020-09-23 00[facility]00[facility] Medications Ordered Medication Name Filled Medication Name Start Date Stop Date Current Medication? Ordering Clinician Indication Dosage Frequency Signature (SIG) Comments Components Source amoxicillin 500 mg tablet 2021-05 00:00: 00 05-02 05:59 :00 No [id number] 500mg Take 1 tablet by mouth in the morning and 1 tablet in the evening. Do all this for 10 days. [facility] multivitami n ( VITAMIN) tablet 2021-05 00:00: 00 Yes [id number] 1{tbl} Take 1 tablet by mouth in the morning. [facility] amoxicillin -clavulanat e 875-125 mg per tablet 2021-05 00:00: 00 04-21 00:00 :00 No TAKE 1 TABLET BY MOUTH EVERY 12 HOURS FOR 10 DAYS. [facility] proMETHazin e 25 mg tablet 10-03 00:00: 00 04-16 00:00 :00 No [id number] 25mg Take 1 tablet by mouth every 6 (six) hours as needed for Nausea and Vomiting (N/V). [facility] multivitami n ( VITAMIN) tablet 09-05 00:00: 00 04-16 00:00 :00 No [id number] 1{tbl} Take 1 tablet by mouth daily. [facility] Immunizations Ordered Immunization Name Filled Immunization Name Date Status Comments Source H1n1 Vaccine 2020-10-03 00:00:00 Completed [facility] HEPATITIS A 2020-10-03 00:00:00 Completed [facility] Varicella (varivax)(chicken pox) 2020-10-03 00:00:00 Completed [facility] PPD (TB) 2020-10-03 00:00:00 Completed [facility] Influenza Virus Vaccine 2020-10-03 00:00:00 Completed [facility] DTAP 2020-10-03 00:00:00 Completed [facility] HIB 4 Dose Schedule 2020-10-03 00:00:00 Completed [facility] Hep B, Adol or Pedi Dosage 2020-10-03 00:00:00 Completed [facility] Polio (IPV/OPV) 2020-10-03 00:00:00 Completed [facility] HPV 2020-10-03 00:00:00 Completed [facility] Meningococcal Vaccine 2020-10-03 00:00:00 Completed [facility] HPV9 2020-10-03 00:00:00 Completed [facility] TDAP 2020-10-03 00:00:00 Completed [facility] MMR 2020-10-03 00:00:00 Completed [facility] Influenza Virus Vaccine Quad .5 mL IM 6+ MO (FLUZONE/FLULAVAL/FL UARIX) 2020-10-03 00:00:00 Completed [facility] Influenza Virus Vaccine Quad .5 mL IM 6+ MO 2019-04-14 00:00:00 Completed [facility] Influenza Virus Vaccine Quad .5 mL IM 6+ MO 2019-04-14 00:00:00 Completed [facility] Influenza Virus Vaccine Quad .5 mL IM 6+ MO 2019-04-14 00:00:00 Completed [facility] Influenza Virus Vaccine Quad .5 mL IM 6+ MO 2019-04-14 00:00:00 Completed [facility] Influenza Virus Vaccine Quad .5 mL IM 6+ MO 2019-04-14 00:00:00 Completed [facility] MMR 2019-01-26 00:00:00 Completed [facility] MMR 2019-01-26 00:00:00 Completed [facility] MMR 2019-01-26 00:00:00 Completed [facility] MMR 2019-01-26 00:00:00 Completed [facility] MMR 2019-01-26 00:00:00 Completed [facility] TDAP 2018-11-02 00:00:00 Completed [facility] TDAP 2018-11-02 00:00:00 Completed [facility] TDAP 2018-11-02 00:00:00 Completed [facility] TDAP 2018-11-02 00:00:00 Completed [facility] TDAP 2018-11-02 00:00:00 Completed [facility] HPV9 2016-04-20 00:00:00 Completed [facility] TDAP 2016-04-20 00:00:00 Completed [facility] HPV9 2016-04-20 00:00:00 Completed [facility] TDAP 2016-04-20 00:00:00 Completed [facility] HPV9 2016-04-20 00:00:00 Completed [facility] TDAP 2016-04-20 00:00:00 Completed [facility] HPV9 2016-04-20 00:00:00 Completed [facility] TDAP 2016-04-20 00:00:00 Completed [facility] HPV9 2016-04-20 00:00:00 Completed [facility] TDAP 2016-04-20 00:00:00 Completed [facility] HPV 2014-12-19 00:00:00 Completed [facility] HPV 2014-12-19 00:00:00 Completed [facility] HPV 2014-12-19 00:00:00 Completed [facility] HPV 2014-12-19 00:00:00 Completed [facility] HPV 2014-12-19 00:00:00 Completed [facility] MMR 2014-01-24 00:00:00 Completed [facility] MMR 2014-01-24 00:00:00 Completed [facility] MMR 2014-01-24 00:00:00 Completed [facility] MMR 2014-01-24 00:00:00 Completed [facility] MMR 2014-01-24 00:00:00 Completed [facility] HEPATITIS A 2013-11-20 00:00:00 Completed [facility] HPV 2013-11-20 00:00:00 Completed [facility] HEPATITIS A 2013-11-20 00:00:00 Completed [facility] HPV 2013-11-20 00:00:00 Completed [facility] HEPATITIS A 2013-11-20 00:00:00 Completed [facility] HPV 2013-11-20 00:00:00 Completed [facility] HEPATITIS A 2013-11-20 00:00:00 Completed [facility] HPV 2013-11-20 00:00:00 Completed [facility] HEPATITIS A 2013-11-20 00:00:00 Completed [facility] HPV 2013-11-20 00:00:00 Completed [facility] Influenza Virus Vaccine 2013-04-12 00:00:00 Completed [facility] Influenza Virus Vaccine 2013-04-12 00:00:00 Completed [facility] Influenza Virus Vaccine 2013-04-12 00:00:00 Completed [facility] Influenza Virus Vaccine 2013-04-12 00:00:00 Completed [facility] Influenza Virus Vaccine 2013-04-12 00:00:00 Completed [facility] Influenza Virus Vaccine 2011-09-01 00:00:00 Completed [facility] Influenza Virus Vaccine 2011-09-01 00:00:00 Completed [facility] Influenza Virus Vaccine 2011-09-01 00:00:00 Completed [facility] Influenza Virus Vaccine 2011-09-01 00:00:00 Completed [facility] Influenza Virus Vaccine 2011-09-01 00:00:00 Completed [facility] HEPATITIS A 2010-09-25 00:00:00 Completed [facility] Meningococcal Vaccine 2010-09-25 00:00:00 Completed [facility] HEPATITIS A 2010-09-25 00:00:00 Completed [facility] Meningococcal Vaccine 2010-09-25 00:00:00 Completed [facility] HEPATITIS A 2010-09-25 00:00:00 Completed [facility] Meningococcal Vaccine 2010-09-25 00:00:00 Completed [facility] HEPATITIS A 2010-09-25 00:00:00 Completed [facility] Meningococcal Vaccine 2010-09-25 00:00:00 Completed [facility] HEPATITIS A 2010-09-25 00:00:00 Completed [facility] Meningococcal Vaccine 2010-09-25 00:00:00 Completed [facility] PPD (TB) 2010-01-14 00:00:00 Completed [facility] Influenza Virus Vaccine 2010-01-14 00:00:00 Completed [facility] PPD (TB) 2010-01-14 00:00:00 Completed [facility] Influenza Virus Vaccine 2010-01-14 00:00:00 Completed [facility] PPD (TB) 2010-01-14 00:00:00 Completed [facility] Influenza Virus Vaccine 2010-01-14 00:00:00 Completed [facility] PPD (TB) 2010-01-14 00:00:00 Completed [facility] Influenza Virus Vaccine 2010-01-14 00:00:00 Completed [facility] PPD (TB) 2010-01-14 00:00:00 Completed [facility] Influenza Virus Vaccine 2010-01-14 00:00:00 Completed [facility] HEPATITIS A 2009-07-15 00:00:00 Completed [facility] Varicella (varivax)(chicken pox) 2009-07-15 00:00:00 Completed [facility] HEPATITIS A 2009-07-15 00:00:00 Completed [facility] Varicella (varivax)(chicken pox) 2009-07-15 00:00:00 Completed [facility] HEPATITIS A 2009-07-15 00:00:00 Completed [facility] Varicella (varivax)(chicken pox) 2009-07-15 00:00:00 Completed [facility] HEPATITIS A 2009-07-15 00:00:00 Completed [facility] Varicella (varivax)(chicken pox) 2009-07-15 00:00:00 Completed [facility] HEPATITIS A 2009-07-15 00:00:00 Completed [facility] Varicella (varivax)(chicken pox) 2009-07-15 00:00:00 Completed [facility] H1n1 Vaccine 2009-03-29 00:00:00 Completed [facility] H1n1 Vaccine 2009-03-29 00:00:00 Completed [facility] H1n1 Vaccine 2009-03-29 00:00:00 Completed [facility] H1n1 Vaccine 2009-03-29 00:00:00 Completed [facility] H1n1 Vaccine 2009-03-29 00:00:00 Completed [facility] DTAP 2003-05-23 00:00:00 Completed [facility] MMR 2003-05-23 00:00:00 Completed [facility] Polio (IPV/OPV) 2003-05-23 00:00:00 Completed [facility] DTAP 2003-05-23 00:00:00 Completed [facility] MMR 2003-05-23 00:00:00 Completed [facility] Polio (IPV/OPV) 2003-05-23 00:00:00 Completed [facility] DTAP 2003-05-23 00:00:00 Completed [facility] MMR 2003-05-23 00:00:00 Completed [facility] Polio (IPV/OPV) 2003-05-23 00:00:00 Completed [facility] DTAP 2003-05-23 00:00:00 Completed [facility] MMR 2003-05-23 00:00:00 Completed [facility] Polio (IPV/OPV) 2003-05-23 00:00:00 Completed [facility] DTAP 2003-05-23 00:00:00 Completed [facility] MMR 2003-05-23 00:00:00 Completed [facility] Polio (IPV/OPV) 2003-05-23 00:00:00 Completed [facility] DTAP 2001-07-25 00:00:00 Completed [facility] HIB 4 Dose Schedule 2001-07-25 00:00:00 Completed [facility] DTAP 2001-07-25 00:00:00 Completed [facility] HIB 4 Dose Schedule 2001-07-25 00:00:00 Completed [facility] DTAP 2001-07-25 00:00:00 Completed [facility] HIB 4 Dose Schedule 2001-07-25 00:00:00 Completed [facility] DTAP 2001-07-25 00:00:00 Completed [facility] HIB 4 Dose Schedule 2001-07-25 00:00:00 Completed [facility] DTAP 2001-07-25 00:00:00 Completed [facility] HIB 4 Dose Schedule 2001-07-25 00:00:00 Completed [facility] DTAP 2000-03-30 00:00:00 Completed [facility] HIB 4 Dose Schedule 2000-03-30 00:00:00 Completed [facility] Hep B, Adol or Pedi Dosage 2000-03-30 00:00:00 Completed [facility] MMR 2000-03-30 00:00:00 Completed [facility] Polio (IPV/OPV) 2000-03-30 00:00:00 Completed [facility] Varicella (varivax)(chicken pox) 2000-03-30 00:00:00 Completed [facility] DTAP 2000-03-30 00:00:00 Completed [facility] HIB 4 Dose Schedule 2000-03-30 00:00:00 Completed [facility] Hep B, Adol or Pedi Dosage 2000-03-30 00:00:00 Completed [facility] MMR 2000-03-30 00:00:00 Completed [facility] Polio (IPV/OPV) 2000-03-30 00:00:00 Completed [facility] Varicella (varivax)(chicken pox) 2000-03-30 00:00:00 Completed [facility] DTAP 2000-03-30 00:00:00 Completed [facility] HIB 4 Dose Schedule 2000-03-30 00:00:00 Completed [facility] Hep B, Adol or Pedi Dosage 2000-03-30 00:00:00 Completed [facility] MMR 2000-03-30 00:00:00 Completed [facility] Polio (IPV/OPV) 2000-03-30 00:00:00 Completed [facility] Varicella (varivax)(chicken pox) 2000-03-30 00:00:00 Completed [facility] DTAP 2000-03-30 00:00:00 Completed [facility] HIB 4 Dose Schedule 2000-03-30 00:00:00 Completed [facility] Hep B, Adol or Pedi Dosage 2000-03-30 00:00:00 Completed [facility] MMR 2000-03-30 00:00:00 Completed [facility] Polio (IPV/OPV) 2000-03-30 00:00:00 Completed [facility] Varicella (varivax)(chicken pox) 2000-03-30 00:00:00 Completed [facility] DTAP 2000-03-30 00:00:00 Completed [facility] HIB 4 Dose Schedule 2000-03-30 00:00:00 Completed [facility] Hep B, Adol or Pedi Dosage 2000-03-30 00:00:00 Completed [facility] MMR 2000-03-30 00:00:00 Completed [facility] Polio (IPV/OPV) 2000-03-30 00:00:00 Completed [facility] Varicella (varivax)(chicken pox) 2000-03-30 00:00:00 Completed [facility] DTAP 1999 00:00:00 Completed [facility] HIB 4 Dose Schedule 1999 00:00:00 Completed [facility] Polio (IPV/OPV) 1999 00:00:00 Completed [facility] DTAP 1999 00:00:00 Completed [facility] HIB 4 Dose Schedule 1999 00:00:00 Completed [facility] Polio (IPV/OPV) 1999 00:00:00 Completed [facility] DTAP 1999 00:00:00 Completed [facility] HIB 4 Dose Schedule 1999 00:00:00 Completed [facility] Polio (IPV/OPV) 1999 00:00:00 Completed [facility] DTAP 1999 00:00:00 Completed [facility] HIB 4 Dose Schedule 1999 00:00:00 Completed [facility] Polio (IPV/OPV) 1999 00:00:00 Completed [facility] DTAP 1999 00:00:00 Completed [facility] HIB 4 Dose Schedule 1999 00:00:00 Completed [facility] Polio (IPV/OPV) 1999 00:00:00 Completed [facility] HIB 4 Dose Schedule 1999 00:00:00 Completed [facility] Polio (IPV/OPV) 1999 00:00:00 Completed [facility] HIB 4 Dose Schedule 1999 00:00:00 Completed [facility] Polio (IPV/OPV) 1999 00:00:00 Completed [facility] HIB 4 Dose Schedule 1999 00:00:00 Completed [facility] Polio (IPV/OPV) 1999 00:00:00 Completed [facility] HIB 4 Dose Schedule 1999 00:00:00 Completed [facility] Polio (IPV/OPV) 1999 00:00:00 Completed [facility] HIB 4 Dose Schedule 1999 00:00:00 Completed [facility] Polio (IPV/OPV) 1999 00:00:00 Completed [facility] DTAP 1999 00:00:00 Completed [facility] Hep B, Adol or Pedi Dosage 1999 00:00:00 Completed [facility] DTAP 1999 00:00:00 Completed [facility] Hep B, Adol or Pedi Dosage 1999 00:00:00 Completed [facility] DTAP 1999 00:00:00 Completed [facility] Hep B, Adol or Pedi Dosage 1999 00:00:00 Completed [facility] DTAP 1999 00:00:00 Completed [facility] Hep B, Adol or Pedi Dosage 1999 00:00:00 Completed [facility] DTAP 1999 00:00:00 Completed [facility] Hep B, Adol or Pedi Dosage 1999 00:00:00 Completed [facility] Hep B, Adol or Pedi Dosage 1999 00:00:00 Completed [facility] Hep B, Adol or Pedi Dosage 1999 00:00:00 Completed [facility] Hep B, Adol or Pedi Dosage 1999 00:00:00 Completed [facility] Hep B, Adol or Pedi Dosage 1999 00:00:00 Completed [facility] Hep B, Adol or Pedi Dosage 1999 00:00:00 Completed [facility] Vital Signs Vital Name Observation Time Observation Value Comments S ource Systolic blood pressure 2022-04-16 16:22:00 110 mm[Hg] [facility] Diastolic blood pressure 2022-04-16 16:22:00 60 mm[Hg] [facility] Heart rate 2022-04-16 16:22:00 96 /min Unive [facility] Body temperature 2022-04-16 16:22:00 37.06 Evy [facility] Respiratory rate 2022-04-16 16:22:00 18 /min [facility] Body height 2022-04-16 16:22:00 157.5 cm [facility] Body weight 2022-04-16 16:22:00 80.485 kg [facility] BMI 2022-04-16 16:22:00 32.45 kg/m2 [facility] Systolic blood pressure 2021-11-03 14:03:00 110 mm[Hg] [facility] Diastolic blood pressure 2021-11-03 14:03:00 63 mm[Hg] [facility] Heart rate 2021-11-03 14:03:00 108 /[facility] Body temperature 2021-11-03 14:03:00 36 Evy [facility] Respiratory rate 2021-11-03 14:03:00 18 /min [facility] Body height 2021-11-03 14:03:00 157.5 cm [facility] Body weight 2021-11-03 14:03:00 76.658 kg [facility] BMI 2021-11-03 14:03:00 30.91 kg/m2 [facility] Procedures Procedure Date / Time Performed Performing Clinicia n Source REPORT OF 2022-04-16 06:01:00 Doctor Enrrique garza, Luis M. Cintron [facility] POCT URINALYSIS 2022-04-16 00:00:00 Meme Trejo [facility] POCT TEST 2022-04-16 00:00:00 Armen Trejo [facility] Encounters Start Date/Time End Date/Time Encounter Type Admission Type Attending Clinicians Care Facility Care Department Encounter ID Source 2022-12-04 10:27:32 Outpatient [facility] [id number] [facility] 2023-04-15 10:45:00 2023-04-15 10:45:00 Outpatient YULI HERRMANN [facility] [id number] [facility] 2022-10-13 15:52:44 2022-10-13 15:52:44 Outpatient [facility] [id number] Rolf Combs 2022-06-08 10:00:00 2022-06-08 10:00:00 Outpatient SHAYNE RAMIREZ [facility] [id number] [facility] 2022-05-28 14:00:00 2022-05-28 14:00:00 Outpatient R YUMIKO CASTELLON [facility] [id number] [facility] 2022-05-14 10:45:00 2022-05-14 10:45:00 Outpatient R YUMIKO CASTELLON [facility] [id number] [facility] 2022-04-29 14:30:00 2022-04-29 14:30:00 Outpatient R [facility] [id number] [facility] 2022-04-21 00:00:00 2022-04-21 00:00:00 Case Management Yumiko Castellon [facility]ILD [facility] [id number] [facility] 2022-04-20 00:00:00 2022-04-20 00:00:00 Telephone Yumiko Castellon [facility] CHILD [facility] [id number] [facility] 2022-04-16 10:45:00 2022-04-16 11:08:07 Outpatient R MEME TREJO [facility] [id number] [facility] 2022-04-16 10:45:2022-04-16 11:08:07 Initial Visit Meme Trejo Brenda A [facility] [id number] [facility] 2022-04-16 00:00:00 2022-04-16 00:00:00 Orders Only Doctor Unassigned, Luis M. Cintron [facility] 1..840.114 350.1.13.10 4.2.7.2.686 [id number] [facility] 2021-12-24 09:45:00 2021-12-24 09:45:00 Outpatient CHELO THOMAS [facility] [id number] [facility] 2021-11-12 13:00:00 2021-11-12 13:00:00 Outpatient R MEME TREJO [facility] [id number] [facility] 2021-11-07 13:00:00 2021-11-07 13:00:00 Outpatient P [facility] [id number] [facility] 2021-11-03 08:45:00 2021-11-03 10:55:43 Routine Visit Tr[facility], [facility] Yvette Leiva [facility] 1..840.114 350.1.13.10 4.2.7.2.686 [id number] [facility] 2021-11-03 08:45:00 2021-11-03 10:55:43 Outpatient YVETTE KRAUSE [facility] [id number] [facility] 2021-11-03 08:45:00 2021-11-03 08:45:00 Outpatient YVETTE KRAUSE [facility] [id number] [facility] 2021-10-31 09:00:00 2021-10-31 09:15:00 Routine Visit Trimester, [facility] Yvette Leiva [facility] ..114 350.1.13.10 4.2.7.2.686 [id number] [facility] 2021-10-31 09:00:00 2021-10-31 09:00:00 Outpatient R KARISHMA LEIVAE [facility] [id number] [facility] 2021-10-29 11:00:00 2021-10-29 11:42:46 Outpatient R MEME TREJO [facility] [id number] [facility] 2021-10-29 11:00:00 2021-10-29 11:42:46 Routine Visit Meme Trejo [facility] [employer] [facility] MATERNAL & [facility] 1.840.114 350.1.13.10 4.2.7.2.686 [id number] [facility] 2021-10-27 12:58:00 2021-10-27 16:35:00 Emergency X NATALIYA SPRINGER [facility] ERT [id number] [facility] 2021-10-27 12:58:00 2021-10-27 16:35:00 Emergency Nataliya Springer [facility] 1.840.114 350.1.13.10 4.2.7.2.686 [id number] [facility] 2021-10-27 12:58:00 2021-10-27 16:35:00 Emergency X NATALIYA SPRINGER [facility] ERT [id number] [facility] 2021-10-27 00:00:00 2021-10-27 00:00:00 Telephone Meme Trejo [facility] [employer] [facility] & CHILD [facility] 1.840.114 350.1.13.10 4.2.7.2.686 [id number] [facility] 2021-10-10 14:45:00 2021-10-10 14:45:00 Outpatient R MEME TREJO [facility] [id number] [facility] 2021-10-10 14:45:00 2021-10-10 14:45:00 Outpatient R MEME TREJO [facility] [id number] [facility] 2021-10-09 13:45:00 2021-10-09 13:45:00 Outpatient R MEME TREJO [facility] [id number] [facility] 2021-10-03 16:00:00 2021-10-03 16:15:00 Routine Visit Meme Trejo [facility] [employer] [facility] MATERNAL & CHILD [facility] 1.840.114 350.1.13.10 4.2.7.2.686 [id number] [facility] 2021-10-03 16:00:00 2021-10-03 16:00:00 Outpatient R MEME TREJO [facility] [id number] [facility] 2021-10-03 16:00:00 2021-10-03 16:00:00 Outpatient R MEME TREJO [facility] [id number] [facility] 2021-09-09 23:48:00 2021-09-10 01:57:00 Emergency X Bryan BAUER [facility] ERT [id number] [facility] 2021-09-09 23:48:00 2021-09-10 01:57:00 Emergency Bryan Bauer [facility] 1.84.114 350.1.13.10 4.2.7.2.686 [id number] [facility] 2021-09-05 14:15:00 2021-09-05 15:20:42 Initial Visit Meme Trejo [facility] [employer] [facility] MATERNAL & CHILD [facility] 1.840.114 350.1.13.10 4.2.7.2.686 [id number] [facility] 2021-09-05 14:15:00 2021-09-05 15:20:42 Outpatient R MEME TREJO [facility] [id number] [facility] 2021-09-05 14:15:00 2021-09-05 14:15:00 Outpatient R SHIKHAJOAQUIMMEME [facility] [id number] [facility] 2021-09-05 13:45:00 2021-09-05 14:11:27 Outpatient R SHIKHAJOAQUIMMEME [facility] [id number] [facility] 2021-09-04 00:00:00 2021-09-04 00:00:00 Telephone DougMeme brian Malena [facility] [employer] [facility] & CHILD [facility] 1.2.840.114 350.1.13.10 4.2.7.2.686 [id number] [facility] 2021-08-25 00:00:00 2021-08-25 00:00:00 Telephone ShikhajoaquimMeme [facility] [employer] [facility] CHILD [facility] 1.2.840.114 350.1.13.10 4.2.7.2.686 [id number] [facility] 2021-08-22 08:00:00 2021-08-22 09:01:20 Office Visit Neil Meme Malena [facility] [employer] [facility] & CHILD [facility] 1.2.840.114 350.1.13.10 4.2.7.2.686 [id number] [facility] 2021-08-22 08:00:00 2021-08-22 09:01:20 Outpatient R SHIKHAMEME MARCH [facility] [id number] [facility] 2021-08-22 08:00:00 2021-08-22 08:00:00 Outpatient R MEME TREJO [facility] [id number] [facility] 2021-08-22 00:00:00 2021-08-22 00:00:00 Orders Only Doctor Unassigned, Luis M. Cintron [facility] 1.2840.114 350.1.13.10 4.2.7.2.686 [id number] [facility] 2021-08-22 00:00:00 2021-08-22 00:00:00 Letter (Out) Meme Trejo [facility] [employer] [facility] 1.0.114 350.1.13.10 4.2.7.2.686 [id number] [facility] 2021-08-13 10:28:00 2021-08-13 11:01:00 Emergency X [employer] ERT [id number] [facility] 2021-08-13 10:28:00 2021-08-13 11:01:00 Emergency Jenni Osei [facility] 1.840.114 350.1.13.10 4.2.7.2.686 [id number] [facility] 2021-08-13 00:00:00 2021-08-13 00:00:00 Orders Only Doctor Unassigned, Luis M. Cintron [facility] 1.0.114 350.1.13.10 4.2.7.2.686 [id number] [facility] 2020-11-25 09:00:00 2020-11-25 09:00:00 Outpatient R [facility] [id number] [facility] 2020-11-22 10:45:00 2020-11-22 11:00:00 Telemedici ne Visit Trimester, [facility] Shayne Mitchell Perry L [facility] 1.0.114 350.1.13.10 4.2.7.2.686 [id number] [facility] 2020-11-22 10:45:00 2020-11-22 10:45:00 Outpatient R CORETTA, SHAYNE [facility] [id number] [facility] 2020-11-08 10:00:57 2020-11-08 10:35:05 Routine Visit Trimester, [facility] Allen Villalta [facility] .840.114 350.1.13.10 4.2.7.2.686 [id number] [facility] 2020-11-08 10:00:00 2020-11-08 10:00:00 Outpatient R [facility] [id number] [facility] 2020-11-06 16:45:00 2020-11-06 16:45:00 Outpatient CHELO THOMAS [facility] [id number] [facility] 2020-11-06 00:00:00 2020-11-06 00:00:00 Telephone Chelo Carey [facility] [employer] [facility]ERNAL [facility] 1..840.114 350.1.13.10 4.2.7.2.686 [id number] [facility] 2020-11-05 15:59:30 2020-11-05 16:27:56 Office Visit Chelo Carey [facility] [employer] [facility]ERNAL [facility] 1..840.114 350.1.13.10 4.2.7.2.686 [id number] [facility] 2020-11-05 16:00:00 2020-11-05 16:00:00 Outpatient CHELO THOMAS [facility] [id number] [facility] 2020-11-05 00:00:00 2020-11-05 00:00:00 Telephone Chelo Carey [facility] [employer] [facility] MATERNAL & CHILD [facility] 1..840.114 350.1.13.10 4.2.7.2.686 [id number] [facility] 2020-10-29 16:30:00 2020-10-29 16:30:00 Outpatient EMERALD THOMASGIA [facility] [id number] [facility] 2020-10-21 15:30:00 2020-10-21 15:30:00 Outpatient Dami CAREYAICHAWYSarita [facility] [id number] [facility] 2020-10-18 15:09:36 2020-10-18 15:26:25 Speech Language Pathologist Travel Visit Lab, [facility] Carey [facility] [employer] [facility] & CHILD [facility] 1..840.114 350.1.13.10 4.2.7.2.686 [id number] [facility] 2020-10-18 15:15:00 2020-10-18 15:15:00 Outpatient Dami ACREY CHELO [facility] [id number] [facility] 2020-10-18 00:00:00 2020-10-18 00:00:00 Telephone Chelo Carey [facility] [employer] [facility] 1..840.114 350.1.13.10 4.2.7.2.686 [id number] [facility] 2020-10-14 10:45:00 2020-10-14 10:45:00 Outpatient Dami [facility] [id number] [facility] 2020-10-11 00:00:00 2020-10-11 00:00:00 Orders Only Doctor Unassigned, Luis M. Cintron [facility] 1..840.114 350.1.13.10 4.2.7.2.686 [id number] [facility] 2020-10-11 00:00:00 2020-10-11 00:00:00 Telephone Chelo Carey [facility] [employer] [facility] MATERNAL & CHILD [facility] 1..114 350.1.13.10 4.2.7.2.686 [id number] [facility] 2020-10-03 00:00:00 2020-10-03 00:00:00 Patient Secure Msg Doctor Unassigned, Luis M. Cintron [facility] 1..114 350.1.13.10 4.2.7.2.686 [id number] [facility] 2020-10-01 09:29:23 2020-10-01 11:47:08 Routine Visit Trimester, [facility] Allen Villalta [facility] 1.114 350.1.13.10 4.2.7.2.686 [id number] [facility] 2020-10-01 09:30:00 2020-10-01 09:30:00 Outpatient R [facility] [id number] [facility] 2020-10-01 00:00:00 2020-10-01 00:00:00 Orders Only Doctor Unassigned, Luis M. Cintron [facility] 1..114 350.1.13.10 4.2.7.2.686 [id number] [facility] 2020-09-30 09:48:35 2020-09-30 10:19:37 Routine Visit Chelo Carey [facility] [employer] [facility] MATERNAL & CHILD [facility] 1..114 350.1.13.10 4.2.7.2.686 [id number] [facility] 2020-09-30 09:24:35 2020-09-30 09:48:43 Speech Language Pathologist Travel Visit Ultrasound, Meme Armstrong George R [facility] [employer] [facility] MATERNAL & CHILD [facility] 1.2.840.114 350.1.13.10 4.2.7.2.686 [id number] [facility] 2020-09-30 08:47:58 2020-09-30 09:02:58 Speech Language Pathologist Travel Visit Lab, [facility] Meme Trejo [facility] [employer] [facility] & CHILD [facility] 1.2.840.114 350.1.13.10 4.2.7.2.686 [id number] 107 [id number] [facility] 2020-09-30 08:30:00 2020-09-30 08:30:00 Outpatient R [facility] [id number] [facility] 2020-09-30 00:00:00 2020-09-30 00:00:00 Telephone Chelo Carey [facility] [employer] [facility] & CHILD [facility] 1.2.840.114 350.1.13.10 4.2.7.2.686 [id number] [facility] 2020-09-25 00:00:00 2020-09-25 00:00:00 Telephone Chelo Carey [facility] [employer] [facility] CHILD [facility] 1.2.840.114 350.1.13.10 4.2.7.2.686 [id number] [facility] 2020-09-23 14:13:53 2020-09-23 15:44:35 Initial Visit Chelo Carey [facility] [employer] [facility] & CHILD [facility] 1.2.840.114 350.1.13.10 4.2.7.2.686 [id number] [facility] 2020-09-23 14:00:00 2020-09-23 14:00:00 Outpatient R CHELO CAREY [facility] [id number] [facility] 2020-09-23 00:00:00 2020-09-23 00:00:00 Orders Only Doctor Unassigned, Luis M. Cintron [facility] 1..114 350.1.13.10 4.2.7.2.686 [id number] [facility] 2020-07-30 00:00:00 2020-07-30 00:00:00 Patient Outreach Trey Laird [facility] 1.0.114 350.1.13.10 4.2.7.2.686 [id number] [facility] 2020-04-25 16:00:00 2020-04-25 16:00:00 Outpatient R EMILY SPRINGER [facility] [id number] [facility] 2020-02-28 13:30:00 2020-02-28 13:30:00 Outpatient R [facility] [id number] [facility] 2019-11-28 16:05:10 2019-11-28 16:35:57 [facility] [employer] [facility] & CHILD [facility] 1.840.114 350.1.13.10 4.2.7.2.686 [id number] [facility] 2019-11-28 16:05:10 2019-11-28 16:35:57 [facility] [employer] [facility] & CHILD [facility] 1.2840.114 350.1.13.10 4.2.7.2.686 [id number] 2019-11-28 14:00:00 2019-11-28 14:00:00 Outpatient R EMILY SPRINGER [facility] [id number] [facility] 2019-11-27 00:00:00 2019-11-27 00:00:00 Telephone Meme Trejo [facility] [employer] [facility] MATERNAL & CHILD [facility] 1.2840.114 350.1.13.10 4.2.7.2.686 [id number] [facility] 2019-11-27 00:00:00 2019-11-27 00:00:00 Telephone Meme Trejo [facility] [employer] [facility] & CHILD [facility] 1.2.840.114 350.1.13.10 4.2.7.2.686 [id number] 2019-11-24 12:47:22 2019-11-24 13:38:45 Office Visit Meme Trejo [facility] [employer] [facility] & CHILD [facility] 1.2.840.114 350.1.13.10 4.2.7.2.686 [id number] [facility] 2019-11-24 12:45:00 2019-11-24 12:45:00 Outpatient R MEME TREJO [facility] [id number] [facility] 2019-11-24 00:00:00 2019-11-24 00:00:00 Telephone Meme Trejo [facility] [employer] [facility] CHILD [facility] 1.2.840.114 350.1.13.10 4.2.7.2.686 [id number] [facility] 2019-11-24 00:00:00 2019-11-24 00:00:00 Orders Only Doctor Unassigned, Luis M. Cintron [facility] 1.2.840.114 350.1.13.10 4.2.7.2.686 [id number] [facility] 2019-11-24 00:00:00 2019-11-24 00:00:00 Letter (Out) Meme Trejo [facility] [employer] [facility] CHILD [facility] 1.2.840.114 350.1.13.10 4.2.7.2.686 [id number] [facility] 2019-11-09 16:20:00 2019-11-09 16:20:00 Outpatient R RIK JUDD [facility] [id number] [facility] 2019-01-25 09:10:00 2019-01-26 20:45:00 Hospital Encounter Luz Marina Palma [facility] 1.2.840.114 350.1.13.10 4.2.7.2.686 [id number] [facility] 2019-01-25 00:00:00 2019-01-25 00:00:00 Orders Only Doctor Unassigned, Luis M. Cintron [facility] 1.2.840.114 350.1.13.10 4.2.7.2.686 [id number] [facility] 2019-01-18 13:13:34 2019-01-18 14:03:06 Routine Visit Meme Trejo [facility] [employer] [facility] & CHILD [facility] 1.2.840.114 350.1.13.10 4.2.7.2.686 [id number] [facility] 2019-01-11 14:56:31 2019-01-11 15:42:02 Routine Visit Meme Trejo [facility] [employer] [facility] MATERNAL & CHILD [facility] 1.2.840.114 350.1.13.10 4.2.7.2.686 [id number] 107 [id number] [facility] 2019-01-04 10:45:17 2019-01-04 11:24:54 Routine Visit Meme Trejo [facility] [employer] [facility] & CHILD [facility] 1.2.840.114 350.1.13.10 4.2.7.2.686 [id number] [facility] 2018-12-15 13:22:12 2018-12-15 13:41:21 Routine Visit Meme Trejo [facility] [employer] [facility] & CHILD [facility] 1.2.840.114 350.1.13.10 4.2.7.2.686 [id number] 107 [id number] [facility] Results Test Description Test Time Test Comments Results Result Co mments Source [facility] [id number] 16:16:00* Test Item Value Reference Range Interpretation Comme nts POCT PREG (test code = 1605) Positive On board controls acceptable with C Line (test code = 3574) Yes POCT PREG LOT # (test code = 3575) POCT PREG TEST DATE ( test code = 3576) [facility] [id number] 16:16:00* Test Item Value Reference Range Interpretation Comme nts POCT PREG (test code = 1605) Positive On board controls acceptable with C Line (test code = 3574) Yes POCT PREG LOT # (test code = 3575) POCT PREG TEST DATE ( test code = 3576) [facility] [id number] 16:16:00* Test Item Value Reference Range Interpretation Comme nts POCT PREG (test code = 1605) Positive On board controls acceptable with C Line (test code = 3574) Yes POCT PREG LOT # (test code = 3575) POCT PREG TEST DATE ( test code = 3576) [facility] URINALYSIS W SPECIFIC [id number] 16:13:00* Test Item Value Reference Range Interpretation [...] U APPEAR (test code = 3267) . [facility] URINALYSIS W SPECIFIC [id number] 16:13:00* Test Item Value Reference Range Interpretation [...] U APPEAR (test code = 3267) . [facility] URINALYSIS W SPECIFIC [id number] 16:13:00* Test Item Value Reference Range Interpretation [...] U APPEAR (test code = 3267) . [facility] URINALYSIS W SPECIFIC [id number] 16:13:00* Test Item Value Reference Range Interpretation [...] U APPEAR (test code = 3267) . [facility]
[2024-06-30 10:46] LABS: Calcium Oxalate Crystals- Ur Few /HPF (None Seen); Sqamous Epithelial 20-50 /HPF (None Seen); Urine Bacteria 20-50 /HPF (<20); Urine Bilirubin NEGATIVE (Negative); Urine Blood 3+ (OVER) (Negative); Urine Clarity Extremely Turbid (Clear); Urine Color Yellow (Yellow); Urine Culture Reflex Order NOT NEEDED; Urine Glucose NEGATIVE (Negative); Urine Ketones NEGATIVE (Negative); Urine Microscopic Reflex YN ORDER UMIC; Urine Mucus 4+ /HPF (None Seen); Urine Nitrite NEGATIVE (Negative); Urine Protein 1+ (Negative); Urine Urobilinogen Normal (Normal); Urine WBC >50 /HPF (<5)
--- NOTE | 2024-06-30 11:07 | ER ---
Nurse's Notes [facility] Name: Guillermina Carlson Age: 24 yrs Sex: Female : 2000 Arrival Date: 06/30/2024 Time: 08:09 Bed 12 Private MD: Diagnosis: Threatened -R/O EARLY , R/O ECTOPIC Presentation: 06/30 08:40 Chief complaint: Patient states: Pt believes she may be approximately 8 weeks . ss LMP 05/04/25. Pt began having vaginal bleeding since Wednesday. Bleeding is described, "like a period.". Coronavirus screen: Client denies travel out of the [place] in the last 14 days. Ebola Screen: Patient denies exposure to infectious person. Patient denies travel to an Ebola-affected area in the 21 days before illness onset. Initial Sepsis Screen: Does the patient meet any 2 criteria? No. Patient's initial sepsis screen is negative. Does the patient have a suspected source of infection? No. Patient's initial sepsis screen is negative. Risk Assessment: Do you want to hurt yourself or someone else? Patient reports no desire to harm self or others. Onset of symptoms was June 24, 2024. 08:40 Method Of Arrival: Ambulatory ss 08:40 Acuity: SHIRLEY 3 ss 10:58 Note patient states "I don't really want my blood drawn. I just want to know the ap3 results of my ultrasound to know if I need to pass it on my own or if I need medicine." Provider notified. 11:18 Note patient left before proper discharge. 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 - Infectious Disease History:: Denies. - Social history:: Smoking status: Patient denies any tobacco usage or history of. Screenin:19 [facility] ED Fall Risk Assessment (Adult) History of falling in the last 3 months, ap3 including since admission No falls in past 3 months (0 pts) Confusion or Disorientation No (0 pts) Intoxicated or Sedated No (0 pts) Impaired Gait No (0 pts) Mobility Assist Device Used No (0 pt) Altered Elimination No (0 pt) Score/Fall Risk Level 0 - 2 = Low Risk Oriented to surroundings, Maintained a safe environment, Educated pt \\T\\ family on fall prevention, incl call for assistance when getting out of bed, Assessed \\T\\ reinforced patient's understanding of fall precautions, Hourly rounding (assess needs \\T\\ fall precautionary measures) done, Used ambulatory aids as needed (educated on \\T\\ assisted with). Abuse screen: Denies threats or abuse. Nutritional screening: No deficits noted. Tuberculosis screening: No symptoms or risk factors identified. Vital Signs: 08:40 BP 124 / 64; Pulse 85; Resp 14; Temp 98.3(TE); Pulse Ox 100% on R/A; Weight 74.39 kg; ss Height 5 ft. 10 in. ; Pain 0/10; 08:40 Body Mass Index 23.53 (74.39 kg, 177.8 cm) ss 08:40 Pain Scale: Adult ss ED Course: 08:13 Patient arrived in ED. cj3 08:31 Marcio Chance MD is Attending Physician. [facility] 08:41 Triage completed. ss 08:41 Arm band placed on right wrist. ss 09:42 Radiology exam delayed due to test not completed at this time. aa4 10:30 US Transvaginal Ob In Process Unspecified. EDMS 10:45 Patient has correct armband on for positive identification. Call light in reach. ap3 11:19 No provider procedures requiring assistance completed. Patient did not have IV access ap3 during this emergency room visit. Administered Medications: 11:02 Not Given (Patient Refused): ns 0.9% 500 ml 500 ml IV at 1 bolus once; to be given as a jl7 bolus over 30 minutes 11:02 Not Given (Patient Refused): ns 0.9% 1000 ml IV at 1000 ml once; to be given as a bolus jl7 over 60 minutes Outcome: 11:06 Discharge ordered by . daniel 11:19 Discharged to home ambulatory, ap3 11:19 Condition: good 11:19 Patient left the ED. ap3 Signatures: Dispatcher [employer] EDMS Marcio Chance MD MD cha Frazier, Amanda aa4 Billie Connelly, RN RN ss Sofía Marmolejo RN RN ap3 Maddie Aldrich 3 Karolyn Lyons RN jl7
--- NOTE | 2024-06-30 11:07 | EDPHYS ---
Physician Documentation [facility] Name: Guillermina Carlson Age: 24 yrs Sex: Female : 2000 Arrival Date: 06/30/2024 Time: 08:09 Bed 12 Private MD: ED Physician Marcio Chance HPI: 06/30 11:02 This 24 yrs old Female presents to ER via Ambulatory with complaints of daniel Vaginal Bleeding, + Preg <12wks. 11:02 The patient presents to the emergency department with abdominal pain, of the suprapubic daniel area, vaginal bleeding, that is light. The estimated gestational age is 8 weeks. course: care: none, Leakage of Fluid: none appreciated. Previous pregnancies: in previous pregnancies patient has had vaginal delivery. The patient has not experienced similar symptoms in the past. 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 - Infectious Disease History:: Denies. - Social history:: Smoking status: Patient denies any tobacco usage or history of. ROS: 11:03 Constitutional: Negative for fever, chills, and weight loss, Eyes: Negative for injury, daniel pain, redness, and discharge, ENT: Negative for injury, pain, and discharge, Neck: Negative for injury, pain, and swelling, Cardiovascular: Negative for chest pain, palpitations, and edema, Respiratory: Negative for shortness of breath, cough, wheezing, and pleuritic chest pain, Abdomen/GI: Negative for abdominal pain, nausea, vomiting, diarrhea, and constipation, Back: Negative for injury and pain, MS/Extremity: Negative for injury and deformity, Skin: Negative for injury, rash, and discoloration, Neuro: Negative for headache, weakness, numbness, tingling, and seizure, Psych: Negative for depression, anxiety, suicide ideation, homicidal ideation, and hallucinations, Allergy/Immunology: Negative for hives, rash, and allergies, Endocrine: Negative for neck swelling, polydipsia, polyuria, polyphagia, and marked weight changes, Hematologic/Lymphatic: Negative for swollen nodes, abnormal bleeding, and unusual bruising, 11:03 : Positive for vaginal bleeding, Exam: 11:03 Constitutional: This is a well developed, well nourished patient who is awake, alert, daniel and in no acute distress. Head/Face: Normocephalic, atraumatic. Eyes: Pupils equal round and reactive to light, extra-ocular motions intact. Lids and lashes normal. Conjunctiva and sclera are non-icteric and not injected. Cornea within normal limits. Periorbital areas with no swelling, redness, or edema. ENT: Nares patent. No nasal discharge, no septal abnormalities noted. Tympanic membranes are normal and external auditory canals are clear. Oropharynx with no redness, swelling, or masses, exudates, or evidence of obstruction, uvula midline. Mucous membranes moist. Neck: Trachea midline, no thyromegaly or masses palpated, and no cervical lymphadenopathy. Supple, full range of motion without nuchal rigidity, or vertebral point tenderness. No Meningismus. Chest/axilla: Normal chest wall appearance and motion. Nontender with no deformity. No lesions are appreciated. Cardiovascular: Regular rate and rhythm with a normal S1 and S2. No gallops, murmurs, or rubs. Normal PMI, no JVD. No pulse deficits. Respiratory: Lungs have equal breath sounds bilaterally, clear to auscultation and percussion. No rales, rhonchi or wheezes noted. No increased work of breathing, no retractions or nasal flaring. Abdomen/GI: Soft, non-tender, with normal bowel sounds. No distension or tympany. No guarding or rebound. No evidence of tenderness throughout. Back: No spinal tenderness. No costovertebral tenderness. Full range of motion. Skin: Warm, dry with normal turgor. Normal color with no rashes, no lesions, and no evidence of cellulitis. MS/ Extremity: Pulses equal, no cyanosis. Neurovascular intact. Full, normal range of motion., bilateral aka Neuro: Awake and alert, GCS 15, oriented to person, place, time, and situation. Cranial nerves II-XII grossly intact. Motor strength 5/5 in all extremities. Sensory grossly intact. Cerebellar exam normal. Normal gait. Psych: Awake, alert, with orientation to person, place and time. Behavior, mood, and affect are within normal limits. Vital Signs: 08:40 BP 124 / 64; Pulse 85; Resp 14; Temp 98.3(TE); Pulse Ox 100% on R/A; Weight 74.39 kg; ss Height 5 ft. 10 in. ; Pain 0/10; 08:40 Body Mass Index 23.53 (74.39 kg, 177.8 cm) ss 08:40 Pain Scale: Adult ss MDM: 08:31 Medical Screening Exam initiated daniel 11:04 Differential diagnosis: threatened Ab, inevitable Ab, complete Ab, retained Ab, missed daniel Ab. Data reviewed: vital signs, nurses notes, radiologic studies, ultrasound. Consideration of Admission/Observation Patient was admitted/placed on observation. I considered the following discharge prescriptions or medication management in the emergency department Medications were administered in the Emergency Department. See MAR. Independent interpretation of the following test(s) in the Emergency Department Radiology Department Ultrasound: My interpretation is VAG PROBE USG. Historians other than the Patient: PT WANTS NO LABS DONE, JUST USG REPORT. Care significantly affected by the following chronic conditions: NONE. 06/30 08:32 Order name: Test, Urine; Complete Time: 10:56 [facility] 06/30 08:32 Order name: Urinalysis w/ reflexes; Complete Time: 10:56 [facility] 06/30 08:32 Order name: US Transvaginal Ob [facility] 06/30 08:32 Order name: NPO; Complete Time: 11:02 daniel Administered Medications: 11:02 Not Given (Patient Refused): ns 0.9% 500 ml 500 ml IV at 1 bolus once; to be given as a jl7 bolus over 30 minutes 11:02 Not Given (Patient Refused): ns 0.9% 1000 ml IV at 1000 ml once; to be given as a bolus jl7 over 60 minutes Disposition Summary: 06/30/24 11:06 Discharge Ordered Notes: Location: Home daniel Problem: new daneil Symptoms: are unchanged daniel Condition: Undetermined daniel Diagnosis - Threatened - R/O EARLY , R/O ECTOPIC daniel Followup: daniel - With: Private Physician - When: 2 - 3 days - Reason: Recheck today's complaints, Continuance of care, Re-evaluation by your physician Discharge Instructions: - Discharge Summary Sheet daniel - Ectopic daniel - Vaginal Bleeding During , First Trimester daniel - First Trimester of , [id number] daniel - First Trimester of daniel - Ectopic , [id number] daniel - Vaginal Bleeding During , First Trimester, [id number] daniel Forms: - Medication Reconciliation Form daniel - Antibiotic Education daniel - Prescription Opioid Use daniel - Patient Portal Instructions daniel - Leadership Thank You Letter [facility] Signatures: Dispatcher [employer] Marcio Lopez MD MD cha Blanchard, Shelby, JAYSON RN Karolyn Dumont RN jl7 Corrections: (The following items were deleted from the chart) 08:32 08:32 Test, Urine+UC.LAB.BRZ ordered. EDMS EDMS 08:32 08:32 Urinalysis+U.LAB.BRZ ordered. EDMS EDMS 08:33 08:33 Transvaginal Ob+US.RAD.BRZ ordered. EDMS EDMS 11: 08:32 IV Saline Lock ordered. daniel jl7 11: 08:32 Labs collected and sent ordered. daniel jl7 11: 08:32 ABO/RH TYPING+BB.LAB.BRZ ordered. EDMS EDMS 11: 08:32 BASIC METABOLIC PANEL+C.LAB.BRZ ordered. EDMS EDMS 11: 08:32 CBC+H.LAB.BRZ ordered. EDMS EDMS 11: 08:32 QUANTITATIVE HCG+C.LAB.BRZ ordered. EDMS EDMS
--- NOTE | 2024-06-30 11:26 | RAD REPORT ---
EXAMINATION: Transvaginal OB COMPARISON: None. HISTORY: ABD CRAMPING, TECHNIQUE: Real-time ultrasound was performed through the pelvis. A transvaginal scan was performed t o better visualize the intrauterine contents and adnexa. FINDINGS: Normal size uterus. Thickened endometrial stripe present with a small cystic structure in the fundal region. No definitive IUP seen. Both ovaries are visualized and appear unremarkable. There is no free fluid in the cul-de-sac. IMPRESSION: No definitive IUP findings. Small cystic structure seen within a thickened endometrial stripe in the fundal region. This can be related to early gestational sac, however. Recommend follow-up pelvic sonogram in 10-12 days and correlation with serial hCG levels.
[2024-07-01 03:42] VITALS: BP 124/64; TEMP 98.3; O2SAT 100
== END 2024-06-30 11:19 | disposition home or self-care (01) ==
LOC: ER 08:09
DX: O20.0 Threatened abortion (principal)
CPT/HCPCS: 76817; 81001; 81025; 99281